=== PATIENT | female | born 1995 | race Caucasian/White ===

== ENCOUNTER → 2018-04-24 10:24 | Outpatient (CLI) | payer OTHER, SELFPAY ==
--- NOTE | 2018-04-24 10:24 | ONE_ITS ---
DATE OF VISIT: APRIL 24, 2018 ASSESSMENT: Right knee pain. EDUCATION: Slower ambulation will diminish discomfort. PLAN: 1. Work restrictions discussed. Refer to work status form. 2. Continue physical therapy. 3. Ibuprofen 800 mg. p.r.n. (42) 4. Ice or heat p.r.n. 5. Knee brace for comfort 6. Follow-up in Occupational Medicine in two weeks. Return to clinic sooner if condition worsens. More than 50% of this visit spent in the planning and coordination of care. Plan of care reviewed with the patient who verbalized understanding and agreement. CHIEF COMPLAINT: Right knee pain. EMPLOYER: [employer] SUBJECTIVE: Lois presents for follow-up of right knee pain. Work does not have duties that meet work restrictions so she has remained at home taking it easy, children are at daycare. Some improvement noted over the past two weeks. Discomfort remains 1-2/10 but is now an intermittent versus constant ache. Discomfort location remains outer aspect of her knee. Knee feels less loose- goosey. Using the pedals while driving continues to worsen her discomfort. She is walking with a limp. Full weightbearing now causes slight sharp discomfort. Is wearing a brace throughout the day to provide her comfort. Self-medicating with Ibuprofen t.i.d., 2 tabs remaining, some relief noted. Heat application with good relief. She is not noticing any clicking sensation. Sleep pattern has improved. REVIEW OF SYSTEMS: Denies chest pain, palpitations. Denies shortness of breath, dyspnea. Denies headache, visual changes. Denies GI, complaints. Snoring positive. PAST MEDICAL HISTORY: Depression. Anxiety. Obesity class 3. SOCIAL HISTORY: Tobacco one pack per day. ETOH two beers per week. Exercise none. Single, mother of 2-year-old son and 4-year-old daughter. Living with boyfriend. MEDICATIONS: Zoloft 50 mg q. daily x6 months. Ibuprofen 800 mg t.i.d. ALLERGIES: NO KNOWN DRUG ALLERGIES. OBJECTIVE: GENERAL: 22 year-old white female. Alert and oriented x 3. Conversation is appropriate. Gait remains antalgic. Presented with right knee brace in place. RIGHT KNEE: Ecchymosis below patella no longer apparent. Discomfort remains focused at lateral aspect. No erythema present. Difficult to assess edema related to body habitus. TESTING: Further testing deferred.
== END ==
PROVIDERS: PCP Specialist/Technologist Athletic Trainer; Visit Provider Nurse Practitioner Family
DX: M25.561 Pain in right knee (principal)
CPT/HCPCS: 99214

== ENCOUNTER 2018-05-15 10:41 | Outpatient (CLI) | payer OTHER, SELFPAY ==
--- NOTE | 2018-05-15 12:32 | ONE_ITS ---
DATE OF SERVICE: May 15, 2018 Lois was a no-show for today's scheduled appointment.
== END 2018-05-15 10:42 ==
PROVIDERS: PCP Specialist/Technologist Athletic Trainer; Visit Provider Nurse Practitioner Family
DX: M25.561 Pain in right knee (principal); Z53.8 Procedure and treatment not carried out for other reasons

== ENCOUNTER 2018-05-28 20:12 | Emergency (ER) | payer MEDICAID, SELFPAY ==
[2018-05-28 20:19] VITALS: BP 151/70; PULSE 98; RESP 20; TEMP 36.5; O2SAT 98
--- NOTE | 2018-05-28 20:31 | W.ED.GENAD ---
Discharge Plan Disposition Patient Disposition: HOME Condition: Stable Discharge Details Chief Complaint: Headache Clinical Impression: Migraine Primary Care Provider: Reynaldo Cabral ED Provider: Calvin Quintero Home Meds and New Rx's Prescriptions: Continue multivitamin 1 EACH tablet 1 tab PO DAILY RF: 0 sertraline [Zoloft] 25 MG tablet 25 mg PO DAILY RF: 0 Discharge Instructions Instructions: Migraine Headache (ED) Additional Instructions: you can take 1000mg tylenol and 600mg ibuprofen every 6 hours for pain as needed follow up with your primary care provider within 1-2 weeks if you have severe worsening of pain, fevers, or persistent vomit return to the emergency department Discharge Data Discharge Physician: Calvin Quintero Medical Decision Making MDM Narrative Medical decision making narrative: 23 yo female who states she has a hx of migraines and anxiety comes in [facility] complaints of 2 days of intermittent headache and nausea. She localizes the pain behind the right eye. She has no fevers or vomit. She states the pain today started this morning and slowly has been worsening throughout the day. She has no neck stiffness, eomi without pain, perrl, iop 10 in each eye. She has an [place]ogn[place] sah score of 0 so doubt sah at this time. NO findings to suggest cavernous sinus thrombosis or cerebral venous thrombosis. I suspect her headache is due to migraine, will treat with toradol and reassess. She also states she has been feeling more anxious recently and would like medicine for this, will treat with ativan and reassess pt feeling better with toradol and feels less anxious. Will have her f/u with pcp for continued management of likely migraine and also return precautions given Differential Diagnosis migraine, tension headache, cluster headache HPI - General Adult General Mode of arrival: ambulatory. Date/Time Provider Initiated Documentation: 05/28/18 20:20. Limitations to Documentation: no limitations. Information obtained by: patient. History of Present Illness 23 year old F presents to the emergency department with the chief complaint of headache, described as moderate, with intensity rated at 4. Quality is described as aching, and is localized to the head. Patient reports no radiation. Patient started experiencing this day(s) (2) and it has been intermittent. No relieving factors improve symptom(s), No exacerbating factors reported . Patient notes other (nausea). Patient did receive the following treatments prior to arrival, NSAID Related Data Home Medications Medication Instructions Recorded Confirmed multivitamin 1 tab PO DAILY 10/25/17 05/28/18 sertraline [Zoloft] 25 mg PO DAILY 10/25/17 05/28/18 Allergies Allergy/AdvReac Type Severity Reaction Status Date / Time Latex, Natural Rubber AdvReac Mild Skin Rash Unverified 05/28/18 20:26 General Stated Complaint: Headache MITCH: 3 Review of Systems Review of Systems All systems reviewed & are unremarkable except as noted in HPI and below Constitutional Denies chills, Denies fever(s) and Denies weakness Eyes Patient Denies loss of vision ENT Denies change in voice Cardiovascular Denies chest pain and Denies dyspnea Respiratory Denies dyspnea Gastrointestinal Denies abdominal pain, Denies nausea and Denies vomiting Genitourinary Denies dysuria Musculoskeletal Denies joint swelling Integumentary/Breasts Denies rash Neurologic Denies loss of vision and Denies weakness Psychiatric Denies depression Endocrine Denies cold intolerance and Denies heat intolerance Allergic/Immunologic Reports urticaria PFSH Family History Other Neoplasm Medical History Obesity (BMI 35.0-39.9 without comorbidity) (Acute) Anxiety Carpal tunnel syndrome Depression Social History current occupational status: employed current occupation: [employer] Smoking/Tobacco Use Status: Current every day quit status: considering quitting alcohol intake: current Exam Const General: no acute distress Orientation: alert HENMT Head: normal to inspection Ears: external ears normal General nose exam: external nose normal Mouth: moist mucous membranes Eyes General: appearance normal, both eyes and all related structures Neck Neck: normal visual inspection, no meningeal signs and trachea midline Resp Effort & Inspection: normal respiratory effort and able to speak in complete sentences Cardio Rate: regular rate Skin General skin exam: no rashes or lesions noted Neuro General: alert and oriented x3 Extrem General: normal to inspection Psych Mental Status: mental status grossly normal Course Vital Signs Temperature 36.5 C 05/28/18 20:19 Pulse 98 H 05/28/18 20:19 Respiratory Rate 20 05/28/18 20:19 Blood Pressure 151/70 H 05/28/18 20:19 Pulse Oximetry 98 05/28/18 20:19 Temperature 36.5 C 05/28/18 20:19 Pulse 98 H 05/28/18 20:19 Respiratory Rate 20 05/28/18 20:19 Blood Pressure 151/70 H 05/28/18 20:19 Pulse Oximetry 98 05/28/18 20:19
--- NOTE | 2018-05-28 20:34 | ED.GENADUL_ITS ---
Discharge Plan Disposition Patient Disposition: HOME Condition: Stable Discharge Details Chief Complaint: Headache Clinical Impression: Migraine Primary Care Provider: Reynaldo Cabral ED Provider: Calvin Quintero Home Meds and New Rx's Prescriptions: Continue multivitamin 1 EACH tablet 1 tab PO DAILY RF: 0 sertraline [Zoloft] 25 MG tablet 25 mg PO DAILY RF: 0 Discharge Instructions Instructions: Migraine Headache (ED) Additional Instructions: you can take 1000mg tylenol and 600mg ibuprofen every 6 hours for pain as needed follow up with your primary care provider within 1-2 weeks if you have severe worsening of pain, fevers, or persistent vomit return to the emergency department Discharge Data Discharge Physician: Calvin Quintero Medical Decision Making MDM Narrative Medical decision making narrative: 23 yo female who states she has a hx of migraines and anxiety comes in [facility] complaints of 2 days of intermittent headache and nausea. She localizes the pain behind the right eye. She has no fevers or vomit. She states the pain today started this morning and slowly has been worsening throughout the day. She has no neck stiffness, eomi without pain , perrl, iop 10 in each eye. She has an enterprise sah score of 0 so doubt sah at this time. NO findings to suggest cavernous sinus thrombosis or cerebral venous thrombosis. I suspect her headache is due to migraine, will treat with toradol and reassess. She also states she has been feeling more anxious recently and would like medicine for this, will treat with ativan and reassess pt feeling better with toradol and feels less anxious. Will have her f/u with pcp for continued management of likely migraine and also return precautions given Differential Diagnosis migraine, tension headache, cluster headache HPI - General Adult General Mode of arrival: ambulatory . Date/Time Provider Initiated Documentation: 05/28/18 20:20 . Limitations to Documentation: no limitations . Information obtained by: patient . History of Present Illness 23 year old F presents to the emergency department with the chief complaint of headache, described as moderate, with intensity rated at 4. Quality is described as aching, and is localized to the head. Patient reports no radiation. Patient started experiencing this day(s) (2) and it has been intermittent. No relieving factors improve symptom(s), No exacerbating factors reported . Patient notes other (nausea). Patient did receive the following treatments prior to arrival, NSAID Related Data Home Medications Medication Instructions Recorded Confirmed multivitamin 1 tab PO DAILY 10/25/17 05/28/18 sertraline [Zoloft] 25 mg PO DAILY 10/25/17 05/28/18 Allergies Allergy/AdvReac Type Severity Reaction Status Date / Time Latex, Natural Rubber AdvReac Mild Skin Rash Unverified 05/28/18 20:26 General Stated Complaint: Headache MITCH: 3 Review of Systems Review of Systems All systems reviewed & are unremarkable except as noted in HPI and below Constitutional Denies chills, Denies fever(s) and Denies weakness Eyes Patient Denies loss of vision ENT Denies change in voice Cardiovascular Denies chest pain and Denies dyspnea Respiratory Denies dyspnea Gastrointestinal Denies abdominal pain, Denies nausea and Denies vomiting Genitourinary Denies dysuria Musculoskeletal Denies joint swelling Integumentary/Breasts Denies rash Neurologic Denies loss of vision and Denies weakness Psychiatric Denies depression Endocrine Denies cold intolerance and Denies heat intolerance Allergic/Immunologic Reports urticaria PFSH Family History Other Neoplasm Medical History Obesity (BMI 35.0-39.9 without comorbidity) (Acute) Anxiety Carpal tunnel syndrome Depression Social History current occupational status: employed current occupation: [employer] Smoking/Tobacco Use Status: Current every day quit status: considering quitting alcohol intake: current Exam Const General: no acute distress Orientation: alert HENMT Head: normal to inspection Ears: external ears normal General nose exam: external nose normal Mouth: moist mucous membranes Eyes General: appearance normal, both eyes and all related structures Neck Neck: normal visual inspection, no meningeal signs and trachea midline Resp Effort & Inspection: normal respiratory effort and able to speak in complete sentences Cardio Rate: regular rate Skin General skin exam: no rashes or lesions noted Neuro General: alert and oriented x3 Extrem General: normal to inspection Psych Mental Status: mental status grossly normal Course Vital Signs Temperature 36.5 C 05/28/18 20:19 Pulse 98 H 05/28/18 20:19 Respiratory Rate 20 05/28/18 20:19 Blood Pressure 151/70 H 05/28/18 20:19 Pulse Oximetry 98 05/28/18 20:19 Temperature 36.5 C 05/28/18 20:19 Pulse 98 H 05/28/18 20:19 Respiratory Rate 20 05/28/18 20:19 Blood Pressure 151/70 H 05/28/18 20:19 Pulse Oximetry 98 05/28/18 20:19
[2018-05-28] MEDS: Ketorolac 30 MG/ML VIAL IM (20:40)
[2018-05-28] MEDS: LORazepam 0.5 MG TAB PO (20:40)
[2018-05-28] MEDS: SUMAtriptan 6 MG/0.5 ML VIAL SC (21:50)
[2018-05-28 22:12] VITALS: BP 130/78; PULSE 76; RESP 18; O2SAT 100
== END 2018-05-28 22:11 | disposition home or self-care (01) ==
LOC: ER 22:14
PROVIDERS: Emergency Provider Emergency Medicine; PCP Specialist/Technologist Athletic Trainer
DX: G43.909 Migraine, unspecified, not intractable, without status migrainosus (principal); F41.9 Anxiety disorder, unspecified
CPT/HCPCS: 96372; 99284; J1885

== ENCOUNTER 2018-06-05 08:18 | Emergency (ER) | payer MEDICAID, SELFPAY ==
[2018-06-05 08:22] VITALS: BP 145/77; PULSE 98; RESP 16; TEMP 36.6; O2SAT 98
--- NOTE | 2018-06-05 09:19 | W.ED.GENAD ---
Discharge Plan Disposition Patient Disposition: HOME Discharge Details Chief Complaint: Headache Clinical Impression: Headache, Blurred vision, right eye Primary Care Provider: Reynaldo Cabral ED Provider: Blane Hartley Home Meds and New Rx's Prescriptions: Continue sertraline [Zoloft] 25 MG tablet 25 mg PO DAILY RF: 0 Discharge Instructions Instructions: Against Medical Advice (ED) Additional Instructions: It was recommended that you have diagnostic testing today including an MRI of your brain to assess for severe medical conditions. This study was not performed today and should be performed as soon as possible. Please follow-up with your primary care physician as soon as possible. Call today to arrange follow-up. Please follow-up with neurology. Call for an appointment. Return to the emergency department at anytime for further workup and treatment. Referrals: Reynaldo Cabral [Primary Care Provider] - Elzbieta Savage MD [ [facility] STAFF PHYSICIAN] - Medical Decision Making 9:22 --23-year-old female with history of intermittent migraine headaches, here with persistent headache over the past 9 days. Patient is neurologically intact on exam but does note that she has some mild blurred vision of her right eye. Differential is broad at this point. Consider complex migraine headache versus less likely idiopathic intercranial hypertension versus MS initial flare. Given the timing I think it is highly unlikely that patient is suffering from subarachnoid hemorrhage. Patient has no signs concerning for meningitis. At this time is to pursue MRI imaging of her brain. 11:15 -- Patient transported to diagnostic imaging for MRI - unfortunately patient not able to tolerate study secondary to claustrophobia. I had a lengthy conversation with the patient and offered anxiolytics/sedatives to allow us to obtain study. Patient refusing. I explained my specific concern that she may have life-threatening her lifestyle modifying disease including diagnosis noted above. I explained that MRI is necessary to rule out these life-threatening or lifestyle modifying disease. Patient verbalized understanding of my concerns and is appreciative but does not wish to pursue further testing at this time.Patient wishes to leave [facility] now. I offered alternative diagnostic treatment options including obtaining CT imaging and lumbar puncture at least to assess for some of potential severe diagnosis and she refused this as well. Patient has decisional making capacity to participate in informed refusal. I will do my best to try to secure outpatient follow-up for her. Lab Data Lab results reviewed: Yes I reviewed the patient's lab results. Laboratory Tests 06/05/18 06/05/18 09:30 09:30 WBC 8.98 RBC 5.02 Hgb 15.2 Hct 45.6 MCV 90.8 MCH 30.3 MCHC 33.3 RDW 12.8 Plt Count 277 MPV 9.6 Immature Gran % 0.2 Neutrophils % 70.8 Lymphocytes % 19.4 Monocytes % 6.5 Eosinophils % 2.9 Basophils % 0.2 Absolute Neutrophils 6.36 Absolute Lymphocytes 1.74 Absolute Monocytes 0.58 Absolute Eosinophils 0.26 Absolute Basophils 0.02 Sodium 140 Potassium 3.7 Chloride 103 Carbon Dioxide 30.6 Anion Gap 6.4 BUN 12 Creatinine 0.83 Estimated GFR/1.73 m2 >= 60.00 Glucose 89 Calcium 8.9 HPI General Mode of arrival: ambulatory. Date/Time Provider Initiated Documentation: 06/05/18 09:10. Limitations to Documentation: no limitations. Information obtained by: patient. HPI Narrative: 23-year-old female with history of migraine headaches presents with chief complaint of headache. Patient notes that she has had a headache for the past 9 days. Pain is described as stabbing. Pain is localized to behind her right eye. Pain is currently rated moderate 6/10. She has associated blurred vision that is mild right eye as well as associated nausea. No vomiting. No fevers or neck pain or stiffness. No rash. Of note patient was seen here in the emergency department and treated for headache and anxiety on 05/28/2018. She was discharged home but unfortunately has continued to have symptoms. Related Data Home Medications Medication Instructions Recorded Confirmed sertraline [Zoloft] 25 mg PO DAILY 10/25/17 06/05/18 Allergies Allergy/AdvReac Type Severity Reaction Status Date / Time Latex, Natural Rubber AdvReac Mild Skin Rash Unverified 05/28/18 20:26 General Stated Complaint: Headache MITCH: 3 Review of Systems Review of Systems All systems reviewed & are unremarkable except as noted in HPI and below Constitutional Reports headache(s) Eyes Patient Reports blurry vision (rt eye) ENT Reports headache(s) Neurologic Reports headache(s) Exam Const General: cooperative and no acute distress HENMT Head: normocephalic and atraumatic Mouth: moist mucous membranes Eyes General: appearance normal, both eyes and all related structures Conjunctivae: normal conjunctivae Sclera: normal sclerae Pupils: PERRL EOM: EOM intact bilaterally Neck Neck: trachea midline and supple Resp Auscultation: clear to auscultation bilaterally, no rales, no rhonchi and no wheezes Cardio Jugular venous pressure: no JVD Rate: regular rate and not tachycardic Rhythm: regular rhythm GI Palpation: soft, not firm, no guarding, no masses, not rigid and nontender Skin General skin exam: no rashes or lesions noted Neuro General: alert, awake, oriented x3, tone normal, no focal motor deficits, CN's II-XI intact bilaterally and deep tendon reflexes 2+ bilaterally Extrem General: no edema Psych Appearance: grossly normal Mental Status: mental status grossly normal Speech and Movement: speech and movement normal Course Vital Signs Temperature 36.6 C 06/05/18 08:22 Pulse 98 H 06/05/18 08:22 Respiratory Rate 16 06/05/18 08:22 Blood Pressure 145/77 H 06/05/18 08:22 Pulse Oximetry 98 06/05/18 08:22 Temperature 36.6 C 06/05/18 08:22 Pulse 98 H 06/05/18 08:22 Respiratory Rate 16 06/05/18 08:22 Blood Pressure 145/77 H 06/05/18 08:22 Pulse Oximetry 98 06/05/18 08:22
--- NOTE | 2018-06-05 09:24 | ED.GENADUL_ITS ---
Discharge Plan Disposition Patient Disposition: HOME Discharge Details Chief Complaint: Headache Clinical Impression: Headache, Blurred vision, right eye Primary Care Provider: Reynaldo Cabral ED Provider: Blane Hartley Home Meds and New Rx's Prescriptions: Continue sertraline [Zoloft] 25 MG tablet 25 mg PO DAILY RF: 0 Discharge Instructions Instructions: Against Medical Advice (ED) Additional Instructions: It was recommended that you have diagnostic testing today including an MRI of your brain to assess for severe medical conditions. This study was not performed today and should be performed as soon as possible. Please follow-up with your primary care physician as soon as possible. Call today to arrange follow-up. Please follow-up with neurology. Call for an appointment. Return to the emergency department at anytime for further workup and treatment. Referrals: Reynaldo Cabral [Primary Care Provider] - Elzbieta Savage MD [ [facility] STAFF PHYSICIAN] - Medical Decision Making 9:22 --23-year-old female with history of intermittent migraine headaches, here with persistent headache over the past 9 days. Patient is neurologically intact on exam but does note that she has some mild blurred vision of her right eye. Differential is broad at this point. Consider complex migraine headache versus less likely idiopathic intercranial hypertension versus MS initial flare. Given the timing I think it is highly unlikely that patient is suffering from subarachnoid hemorrhage. Patient has no signs concerning for meningitis. At this time is to pursue MRI imaging of her brain. 11:15 -- Patient transported to diagnostic imaging for MRI - unfortunately patient not able to tolerate study secondary to claustrophobia. I had a lengthy conversation with the patient and offered anxiolytics/sedatives to allow us to obtain study. Patient refusing. I explained my specific concern that she may have life-threatening her lifestyle modifying disease including diagnosis noted above. I explained that MRI is necessary to rule out these life-threatening or lifestyle modifying disease. Patient verbalized understanding of my concerns and is appreciative but does not wish to pursue further testing at this time.Patient wishes to leave ama now. I offered alternative diagnostic treatment options including obtaining CT imaging and lumbar puncture at least to assess for some of potential severe diagnosis and she refused this as well. Patient has decisional making capacity to participate in informed refusal. I will do my best to try to secure outpatient follow-up for her. Lab Data Lab results reviewed: Yes I reviewed the patient's lab results. Laboratory Tests 06/05/18 06/05/18 09:30 09:30 WBC 8.98 RBC 5.02 Hgb 15.2 Hct 45.6 MCV 90.8 MCH 30.3 MCHC 33.3 RDW 12.8 Plt Count 277 MPV 9.6 Immature Gran % 0.2 Neutrophils % 70.8 Lymphocytes % 19.4 Monocytes % 6.5 Eosinophils % 2.9 Basophils % 0.2 Absolute Neutrophils 6.36 Absolute Lymphocytes 1.74 Absolute Monocytes 0.58 Absolute Eosinophils 0.26 Absolute Basophils 0.02 Sodium 140 Potassium 3.7 Chloride 103 Carbon Dioxide 30.6 Anion Gap 6.4 BUN 12 Creatinine 0.83 Estimated GFR/1.73 m2 >= 60.00 Glucose 89 Calcium 8.9 HPI General Mode of arrival: ambulatory . Date/Time Provider Initiated Documentation: 06/05/18 09:10 . Limitations to Documentation: no limitations . Information obtained by: patient . HPI Narrative: 23-year-old female with history of migraine headaches presents with chief complaint of headache. Patient notes that she has had a headache for the past 9 days. Pain is described as stabbing. Pain is localized to behind her right eye. Pain is currently rated moderate 6/10. She has associated blurred vision that is mild right eye as well as associated nausea. No vomiting. No fevers or neck pain or stiffness. No rash. Of note patient was seen here in the emergency department and treated for headache and anxiety on 05/28/2018. She was discharged home but unfortunately has continued to have symptoms. Related Data Home Medications Medication Instructions Recorded Confirmed sertraline [Zoloft] 25 mg PO DAILY 10/25/17 06/05/18 Allergies Allergy/AdvReac Type Severity Reaction Status Date / Time Latex, Natural Rubber AdvReac Mild Skin Rash Unverified 05/28/18 20:26 General Stated Complaint: Headache MITCH: 3 Review of Systems Review of Systems All systems reviewed & are unremarkable except as noted in HPI and below Constitutional Reports headache(s) Eyes Patient Reports blurry vision (rt eye) ENT Reports headache(s) Neurologic Reports headache(s) Exam Const General: cooperative and no acute distress HENMT Head: normocephalic and atraumatic Mouth: moist mucous membranes Eyes General: appearance normal, both eyes and all related structures Conjunctivae: normal conjunctivae Sclera: normal sclerae Pupils: PERRL EOM: EOM intact bilaterally Neck Neck: trachea midline and supple Resp Auscultation: clear to auscultation bilaterally, no rales, no rhonchi and no wheezes Cardio Jugular venous pressure: no JVD Rate: regular rate and not tachycardic Rhythm: regular rhythm GI Palpation: soft, not firm, no guarding, no masses, not rigid and nontender Skin General skin exam: no rashes or lesions noted Neuro General: alert, awake, oriented x3, tone normal, no focal motor deficits, CN's II-XI intact bilaterally and deep tendon reflexes 2+ bilaterally Extrem General: no edema Psych Appearance: grossly normal Mental Status: mental status grossly normal Speech and Movement: speech and movement normal Course Vital Signs Temperature 36.6 C 06/05/18 08:22 Pulse 98 H 06/05/18 08:22 Respiratory Rate 16 06/05/18 08:22 Blood Pressure 145/77 H 06/05/18 08:22 Pulse Oximetry 98 06/05/18 08:22 Temperature 36.6 C 06/05/18 08:22 Pulse 98 H 06/05/18 08:22 Respiratory Rate 16 06/05/18 08:22 Blood Pressure 145/77 H 06/05/18 08:22 Pulse Oximetry 98 06/05/18 08:22
[2018-06-05] MEDS: Lactated Ringers 1,000 ML 1000 ML IV (09:26)
[2018-06-05] MEDS: diphenhydrAMINE 50 MG/ML VIAL 25 MG IVP (09:26)
[2018-06-05] MEDS: Ketorolac 15 MG/ML VIAL IVP (09:32)
[2018-06-05] MEDS: Prochlorperazine 10 MG/2 ML VIAL IVP (09:32)
[2018-06-05 09:53] LABS: Abs Immature Grans 0.02 k/cumm (0.0-0.09); Absolute Basophil Count 0.02 k/cumm (0.0-0.2); Absolute Eosinophil Count 0.26 k/cumm (0.0-0.7); Absolute Lymphocyte Count 1.74 k/cumm (1.2-3.4); Absolute Monocyte Count 0.58 k/cumm (0.11-0.7); Absolute Neutrophil Count 6.36 k/cumm (1.2-6.7); Basophils % 0.2; Eosinophils % 2.9; HCT 45.6 % (36.0-46.0); HGB 15.2 g/dL (12.0-15.5); Immature Grans % 0.2; Lymphocytes % 19.4; Mean Corp. HGB Concentration 33.3 g/dL (32.0-36.0); Mean Corpuscular Hemoglobin 30.3 pg (27.0-33.0); Mean Corpuscular Volume 90.8 fL (80-95); Mean Platelet Volume 9.6 fL (8.0-11.0); Monocytes % 6.5; Neutrophils % 70.8; Platelet Count 277 x1000/uL (130-400); RBC 5.02 m/cumm (4.00-5.20); RBC Distribution Width 12.8 % (11.7-14.6); White Blood Cell Count 8.98 k/cumm (4.4-10.8)
[2018-06-05 09:59] LABS: Anion Gap 6.4 mmol/L (3-11); BUN 12 mg/dL (7-18); CO2 30.6 mmol/L (21.0-32.0); CREATININE 0.83 mg/dL (0.55-1.02); Calcium 8.9 mg/dL (8.5-10.1); Chloride 103 mmol/L (98-107); Glucose 89 mg/dL (70-100); Potassium 3.7 mmol/L (3.5-5.1); Sodium 140 mmol/L (136-145)
--- NOTE | 2018-06-05 12:17 | PDOC.ERCMPRO ---
Care Management Progress Note 06/05/18-Pt seen today for severe headache by Dr. Herb Hartley. Pt declined having an MRI and left AMA. CM called Pt to f/u and left a VM. [facility] as Norma is Pt's PCP.
--- NOTE | 2018-06-05 12:20 | CMPROGNOTE_ITS ---
Care Management Progress Note 06/05/18-Pt seen today for severe headache by Dr. Herb Hartley. Pt declined having an MRI and left AMA. CM called Pt to f/u and left a VM. Referral for f/u was faxed to [facility] as Norma is Pt's PCP.
== END 2018-06-05 11:32 | disposition home or self-care (01) ==
PROVIDERS: Emergency Provider Student in an Organized Health Care Education/Training Program; PCP Specialist/Technologist Athletic Trainer
DX: R51 Headache (principal); H53.8 Other visual disturbances; R11.0 Nausea; F40.240 Claustrophobia; Z53.29 Procedure and treatment not carried out because of patient's decision for other reasons
CPT/HCPCS: 36415; 80048; 81025; 96361; 96374; 96375; 99284; 85025; J0780; J1200; J1885

== ENCOUNTER 2019-03-11 20:44 | Emergency (ER) | payer MEDICAID, SELFPAY ==
[2019-03-11 20:47] VITALS: BP 128/86; PULSE 88; RESP 18; TEMP 36.1; O2SAT 98
--- NOTE | 2019-03-11 21:04 | W.ED.GENAD ---
Discharge Plan Disposition Patient Disposition: HOME Condition: Good Discharge Details Chief Complaint: EarProblem Clinical Impression: Swimmer's ear of right side Primary Care Provider: Reynaldo Cabral ED Provider: Nagi Perry Meds and New Rx's Prescriptions: New Ciprodex 0.3-0.1 % drops,suspension 4 drp OT BID Qty: 7.5 RF: 0 Continued venlafaxine [Effexor XR] 75 mg Capsule,Extended Release 24hr 75 mg PO DAILY RF: 0 Discharge Instructions Instructions: Otitis Externa (ED) Additional Instructions: Do not allow water in the right ear. Return to ED over the weekend if this seems to be getting worse instead of better with the eardrops. Use Tylenol and/or Motrin for pain. Follow-up with primary care next week if not better. Referrals: Reynaldo Cabral [Primary Care Provider] - Medical Decision Making Despite having URI this appears to be an otitis externa. Will treat with Ciprodex. Tylenol or Motrin for pain. If not better in 48 hours return for reevaluation. Its possible this is an otitis media but I think it is just the anatomy of the canal with superior erythema and swelling obscuring complete visualization of the TM. There is definitely no perforation. Patient is agreeable with plan. HPI General Mode of arrival: ambulatory. Date/Time Provider Initiated Documentation: 03/11/19 20:56. Limitations to Documentation: no limitations. Information obtained by: patient. HPI Narrative: Patient presents to ED with right ear pain for the last couple of days. She has had a URI with cough and congestion for about the last week. This does seem to be getting better. She has not had fever. She went swimming a couple of days ago and since then has had worsening right ear pain. She denies headache. She denies difficulty breathing. She does feel like the right ear is plugged with some decreased hearing. Related Data Home Medications Medication Instructions Recorded Confirmed ciprofloxacin-dexamethasone 4 drp OT BID #7.5 ml 03/11/19 [Ciprodex] venlafaxine [Effexor XR] 75 mg PO DAILY 03/11/19 03/11/19 Previous Rx's Medication Instructions Recorded ciprofloxacin-dexamethasone 4 drp OT BID #7.5 ml 03/11/19 [Ciprodex] Allergies Allergy/AdvReac Type Severity Reaction Status Date / Time Latex, Natural Rubber AdvReac Mild Skin Rash Unverified 05/28/18 20:26 General Stated Complaint: EarProblem MITCH: 4 Review of Systems Review of Systems As documented in HPI otherwise negative as below. Const: no fever, chills, weakness Resp: positive cough; no SOB, or pleuritic pain CV: no CP, diaphoresis, edema, syncope GI: no abdominal pain, nausea, vomiting, diarrhea Neuro: no headache, numbness, focal weakness, confusion PFSH Medical History Obesity (BMI 35.0-39.9 without comorbidity) (Acute) Anxiety Carpal tunnel syndrome Depression Social History Smoking/Tobacco Use Status: Current every day Tobacco Type: cigarettes Smoking cigarettes per day: 10 Quit status: considering quitting Alcohol Intake: current Alcohol Intake frequency: holidays/special occasions only Drug use: Never Substance use type: does not use 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 Const: Obese female in NAD. HEENT: NC/AT. Normal facial exam. Left ear canal and TM are normal. Right TM with slight fluid behind it but clear. Right upper canal erythematous and swollen. Some tenderness with palpation of the tragus on the right. Oropharynx normal. Eyes: Normal conjunctiva and sclera. Neck: Supple. Trachea midline. No adenopathy. Lungs: Normal respiratory effort. Lungs are clear. Cor: RRR without murmur/gallop. Good radial pulses. Neuro: A+O x 3. CN grossly in tact. Good strength and no focal deficit. Skin: Warm and dry without rash. Course Vital Signs Temperature 97.0 F L 03/11/19 20:47 Pulse 88 03/11/19 20:47 Respiratory Rate 18 03/11/19 20:47 Blood Pressure 128/86 03/11/19 20:47 Pulse Oximetry 98 03/11/19 20:47 Temperature 97.0 F L 03/11/19 20:47 Temperature Source Tympanic 03/11/19 20:47 Pulse 88 03/11/19 20:47 Respiratory Rate 18 03/11/19 20:47 Respiratory Effort Non-Labored 03/11/19 20:54 Blood Pressure 128/86 03/11/19 20:47 Blood Pressure Position Sitting 03/11/19 20:47 Pulse Oximetry 98 03/11/19 20:47 Oxygen Delivery Method Room Air 03/11/19 20:47 Oxygen Flow Rate 0 03/11/19 20:47 Pain Level 2 03/11/19 20:54
[2019-03-11 21:39] VITALS: BP 128/86; PULSE 88; RESP 18; O2SAT 98
[2019-03-11] MEDS: Ciprofloxacin/Dexameth. 7.5 ML BTL AD (21:39)
== END 2019-03-11 22:39 | disposition home or self-care (01) ==
PROVIDERS: Emergency Provider Emergency Medicine; PCP Specialist/Technologist Athletic Trainer
DX: H60.331 Swimmer's ear, right ear (principal)
CPT/HCPCS: 99283

== ENCOUNTER 2019-03-17 14:17 | Outpatient (REF) | payer MEDICAID, SELFPAY ==
[2019-03-17 14:58] LABS: Abs Immature Grans 0.01 k/cumm (0.0-0.09); Absolute Basophil Count 0.02 k/cumm (0.0-0.2); Absolute Eosinophil Count 0.29 k/cumm (0.0-0.7); Absolute Lymphocyte Count 2.05 k/cumm (1.2-3.4); Absolute Monocyte Count 0.65 k/cumm (0.11-0.7); Absolute Neutrophil Count 4.36 k/cumm (1.2-6.7); Basophils % 0.3; Eosinophils % 3.9; HCT 44.8 % (36.0-46.0); HGB 14.6 g/dL (12.0-15.5); Immature Grans % 0.1; Lymphocytes % 27.8; Mean Corp. HGB Concentration 32.6 g/dL (32.0-36.0); Mean Corpuscular Hemoglobin 30.2 pg (27.0-33.0); Mean Corpuscular Volume 92.8 fL (80-95); Mean Platelet Volume 10.3 fL (8.0-11.0); Monocytes % 8.8; Neutrophils % 59.1; Platelet Count 305 x1000/uL (130-400); RBC 4.83 m/cumm (4.00-5.20); RBC Distribution Width 12.8 % (11.7-14.6); White Blood Cell Count 7.38 k/cumm (4.4-10.8)
[2019-03-17 15:08] LABS: ALT 21 U/L (12-78); AST 10 U/L (15-37); Albumin 3.7 g/dL (3.4-5.0); Alkaline Phosphatase 90 U/L (46-116); Anion Gap 6.8 mmol/L (3-11); BUN 13 mg/dL (7-18); Bilirubin, Total 0.2 mg/dL (0.2-1.0); CO2 28.2 mmol/L (21.0-32.0); CREATININE 0.86 mg/dL (0.55-1.02); Calcium 9.1 mg/dL (8.5-10.1); Chloride 104 mmol/L (98-107); Glucose 78 mg/dL (70-100); Lipase 87 U/L (73-393); Magnesium 1.8 mg/dL (1.8-2.4); Potassium 4.4 mmol/L (3.5-5.1); Sodium 139 mmol/L (136-145); Total Protein 6.9 g/dL (6.4-8.2)
== END 2019-03-17 14:37 ==
LOC: NCHCN 14:17
PROVIDERS: PCP Specialist/Technologist Athletic Trainer; Visit Provider Nurse Practitioner Family
DX: R10.9 Unspecified abdominal pain (principal)
CPT/HCPCS: 80053; 83690; 83735; 85025; 87086

== ENCOUNTER 2019-03-19 01:46 | Outpatient (CLI) | payer MEDICAID, SELFPAY ==
--- NOTE | 2019-03-19 07:56 | DI.US_ITS ---
SYMPTOM/DIAGNOSIS: ABD PAIN, R10.9 ABDOMEN ULTRASOUND: The liver is normal in size and echogenicity There is a 1.7 cm mobile stone in the gallbladder. There is no gallbladder wall thickening, abnormal distension or pericholecystic fluid. There is no tenderness over the gallbladder. There is dilatation of the common bile duct to 8 mm distally. No common duct stones are visible. The kidneys, spleen, pancreas and aorta are unremarkable. IMPRESSION: Single mobile gallstone. There is dilatation of the common bile duct. No common duct stones are visible but cannot be excluded on this exam. There is no evidence of acute cholecystitis.
== END 2019-03-19 02:06 ==
PROVIDERS: PCP Specialist/Technologist Athletic Trainer; Visit Provider Nurse Practitioner Family
DX: R10.9 Unspecified abdominal pain (principal); K80.70 Calculus of gallbladder and bile duct without cholecystitis without obstruction; K83.8 Other specified diseases of biliary tract
CPT/HCPCS: 76700

== ENCOUNTER 2019-04-09 20:37 | Emergency (ER) | payer MEDICAID, SELFPAY ==
[2019-04-09 20:40] VITALS: BP 144/81; PULSE 80; RESP 16; TEMP 36.7; O2SAT 99
--- NOTE | 2019-04-09 20:40 | ED.GENADUL_ITS ---
Discharge Plan Disposition Patient Disposition: HOME Condition: Good Discharge Details Chief Complaint: VOLCANOLOGIST Clinical Impression: Abnormal vaginal bleeding, Pelvic cramping, Migraine headache Primary Care Provider: Reynaldo Cabral ED Provider: Nagi Perry Devine Meds and New Rx's Prescriptions: Continued venlafaxine [Effexor XR] 75 mg Capsule,Extended Release 24hr 75 mg PO DAILY RF: 0 magnesium oxide 400 mg magnesium Tablet 400 mg PO DAILY RF: 0 Discharge Instructions Additional Instructions: Go home and rest over the weekend. Stay hydrated. Use ibuprofen or acetaminophen as needed for cramping. Follow-up with [facility], call on Friday for appointment this week. Return to ED for persistent heavy bleeding, p ersistent/worsening pelvic/abdominal pain, fever, neurologic changes. Referrals: [facility] [Provider Group] Medical Decision Making Patient here with 2 complaints. In regards to the first involving vaginal bleeding and pelvic cramping this is something that should be followed by VOLCANOLOGIST. She is concerned that the IUD is causing the problem or that maybe she has an infection. She did not have urinary complaints. She is monogamous. She denies discharge, fever, persistent pain. We will do urine test and send the urine for GC and chlamydia. There is no ultrasound available tonight to evaluate the IUD. However, given lack of fever and constant pain unlikely to be a complication from the IUD such as perforation or dislodgment. She reports no heavy bleeding now. Pelvic exam deferred. Patient to be referred to [facility] this week. In regards to her migraine headache will place a line and give fluids, Reglan, Benadryl, Toradol. We can at least address this problem and give her some comfort. She is comfortable and agreeable to this plan. Headache much better at this point. She did not get the Toradol as she just took 800 of Motrin prior to coming in. She did get 500 of saline, Benadryl, Reglan with relief of headache. Will refer to [facility] for follow-up of vaginal bleeding and pelvic cramping. Return to ED for heavy vaginal bleeding, worsening/persistent pelvic/abdominal pain, fever, neurologic changes HPI General Mode of arrival: ambulatory . Date/Time Provider Initiated Documentation: 04/09/19 20:38 . Limitations to Documentation: no limitations . Information obtained by: patient and RN notes reviewed . HPI Narrative: Patient presents to ED with complaint of pelvic cramping and vaginal bleeding for a month now. She also has a migraine headache which is not different than previous headaches. She came in tonight mostly because she is just tired of all the cramping and bleeding. There has been no real change management coordinator the last month. She has heavy bleeding after intercourse but otherwise has light bleeding. She is only lightly bleeding at this time. She has pelvic cramping. She does have the Mirena device in. She has not even called VOLCANOLOGIST regarding any of this at this point. In regards to her migraine headache this is her typical headache. She has taken Motrin and Tylenol without relief. There is no neurologic changes associated with it. Related Data Home Medications Medication Instructions Recorded Confirmed venlafaxine [Effexor XR] 75 mg PO DAILY 03/11/19 04/09/19 magnesium oxide 400 mg PO DAILY 04/09/19 04/09/19 Allergies Allergy/AdvReac Type Severity Reaction Status Date / Time Latex, Natural Rubber AdvReac Mild Skin Rash Unverified 05/28/18 20:26 General MITCH: 4 Review of Systems Review of Systems As documented in HPI otherwise negative as below. 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 BP up but vitals otherwise normal. Const: WDWN female in NAD. HEENT: NC/AT. Normal facial exam. Eyes: Normal conjunctiva and sclera. PERRL and EOMI. Neck: Supple. Trachea midline. Lungs: Normal respiratory effort. Lungs are clear. Cor: RRR without murmur/gallop. Good radial pulses. GI: Soft. NT/ND. No guarding or rebound. Pelvic: deferred. Neuro: A+O x 3. CN grossly in tact. Gait, speech, strength and sensation normal. Ext: No C/C/E. No deformity or tenderness. Skin: Warm and dry without rash.
[2019-04-09] MEDS: Metoclopramide 10 MG/2 ML VIAL IVP (21:31)
[2019-04-09] MEDS: Normal Saline 1,000 ML 1000 ML IV (21:31)
[2019-04-09] MEDS: diphenhydrAMINE 50 MG/ML VIAL 25 MG IVP (21:31)
[2019-04-09 22:28] VITALS: BP 134/66; PULSE 84; RESP 16; TEMP 36.6; O2SAT 99
[2019-04-12 13:34] LABS: Chlamydia Result Negative; GC Result Negative
== END 2019-04-09 22:27 | disposition home or self-care (01) ==
PROVIDERS: Emergency Provider Emergency Medicine; PCP Specialist/Technologist Athletic Trainer
DX: R10.2 Pelvic and perineal pain (principal); N93.9 Abnormal uterine and vaginal bleeding, unspecified; G43.909 Migraine, unspecified, not intractable, without status migrainosus; Z97.5 Presence of (intrauterine) contraceptive device
CPT/HCPCS: 81025; 87491; 87591; 96374; 96375; 99284; 99283; J1200; J1885; J2765

== ENCOUNTER 2019-04-20 00:39 | Outpatient (CLI) | payer MEDICAID, SELFPAY ==
--- NOTE | 2019-04-20 13:03 | DI.US_ITS ---
SYMPTOMS/DIAGNOSIS: INTRAUTERINE DEVICE POSITION, STRINGS NOT VISIBLE, PELVIC PAIN, R10.2, Z30.431 PELVIC ULTRASOUND: Transabdominal and transvaginal exams were performed. The uterus measures 8.8 x 4.1 x 5.0 cm. An IUD is noted, which appears appropriately positioned within the endometrial stripe. No fibroids are seen. A dominant follicle is seen on the right ovary. The left ovary is unremarkable. No free fluid or hydronephrosis is seen. IMPRESSION: IUD is seen appropriately located within the endometrium.
== END 2019-04-20 00:59 ==
PROVIDERS: PCP Specialist/Technologist Athletic Trainer; Visit Provider Nurse Practitioner Women's Health
DX: R10.2 Pelvic and perineal pain (principal); Z30.431 Encounter for routine checking of intrauterine contraceptive device
CPT/HCPCS: 76830; 76856

== ENCOUNTER 2020-02-29 14:56 | Outpatient (REF) | payer MEDICAID, SELFPAY ==
[2020-02-29 20:02] LABS: Anion Gap 8.9 mmol/L (3-11); BUN 9 mg/dL (7-18); C-Reactive Protein 2.17 mg/dL (0.0-0.3); CO2 25.1 mmol/L (21.0-32.0); CREATININE 0.83 mg/dL (0.55-1.02); Calcium 8.9 mg/dL (8.5-10.1); Chloride 97 mmol/L (98-107); Glucose 97 mg/dL (74-106); Potassium 4.1 mmol/L (3.5-5.1); Sodium 131 mmol/L (136-145); Uric Acid 3.9 mg/dL (2.6-6.0)
== END 2020-02-29 15:16 ==
LOC: NCHCN 14:56
PROVIDERS: PCP Specialist/Technologist Athletic Trainer; Visit Provider Physician Assistant Medical
DX: M10.9 Gout, unspecified (principal)
CPT/HCPCS: 80048; 84550; 85025; 86140

== ENCOUNTER 2020-04-03 18:12 | Outpatient (REF) | payer MEDICAID, SELFPAY ==
[2020-04-03 19:38] LABS: HCT 43.2 % (36.0-46.0); HGB 14.4 g/dL (12.0-15.5); Mean Corp. HGB Concentration 33.3 g/dL (32.0-36.0); Mean Platelet Volume 10.1 fL (8.0-11.0); Platelet Count 351 x1000/uL (130-400); RBC Distribution Width 13.3 % (11.7-14.6); White Blood Cell Count 7.12 k/cumm (4.4-10.8)
[2020-04-03 20:33] LABS: ALT 63 U/L (14-59); AST 39 U/L (15-37); Albumin 3.7 g/dL (3.4-5.0); Alkaline Phosphatase 97 U/L (46-116); Anion Gap 5.1 mmol/L (3-11); BUN 8 mg/dL (7-18); Bilirubin, Total 0.5 mg/dL (0.2-1.0); CO2 28.9 mmol/L (21.0-32.0); CREATININE 0.77 mg/dL (0.55-1.02); Chloride 102 mmol/L (98-107); Glucose 94 mg/dL (74-106); Potassium 4.3 mmol/L (3.5-5.1); Sodium 136 mmol/L (136-145); TSH (W/Ref FT4) 1.06 uIU/mL (0.36-3.74); Total Protein 6.7 g/dL (6.4-8.2); Vitamin B12 325 pg/mL (193-986)
[2020-04-03 20:36] LABS: Vitamin D 25 Total 26.4 ng/ml (30-100)
== END 2020-04-03 18:32 ==
LOC: NCHCN 18:12
PROVIDERS: PCP Specialist/Technologist Athletic Trainer; Visit Provider Nurse Practitioner Family
DX: R63.5 Abnormal weight gain (principal); R53.83 Other fatigue; D64.9 Anemia, unspecified
CPT/HCPCS: 80053; 82306; 85027; 82607; 84443

== ENCOUNTER 2021-10-27 20:29 | Emergency (ER) | payer MEDICAID, SELFPAY ==
[2021-10-27] VITALS (36 sets, daily range): BP systolic 74–153; BP diastolic 54–94; PULSE 69–101; RESP 10–27; TEMP 37.1; O2SAT 95–100
--- NOTE | 2021-10-27 20:15 | DI.RAD_ITS ---
Exam(s) XR ANKLE LT COMPLETE EXAM: XR ANKLE LT COMPLETE CLINICAL HISTORY: L deformitty, pain TECHNIQUE: 2D digital imaging was performed of the left ankle. Three images were obtained. AP, lat eral and oblique views were obtained. COMPARISON: No exams were available for comparison FINDINGS: BONES: There is an acute fracture in the distal shaft of the left fibula. The fracture occurs on the 6 cm above the ankle mortise. There is 4 mm of lateral displacement of the distal fracture. There is a laterally displaced fracture through the medial malleolus. No bony destructive lesion is seen. JOINTS:There is medial subluxation of the talus relative to the tibia. SOFT TISSUE: The patient's ankle is in a splint. IMPRESSION: Acute fractures of the medial malleolus and distal fibula with disruption of the ankle mortise. DATA REPOSITORY: RADIATION DOSE DELIVERED:
--- NOTE | 2021-10-27 20:27 | W.ED.GENAD ---
Discharge Plan Disposition Patient Disposition: HOME Condition: Improving Discharge Details Clinical Impression: Bimalleolar fracture of left ankle Primary Care Provider: Reynaldo Cabral ED Provider: Saurav Rosenberg Home Meds and New Rx's Prescriptions: New oxycodone 5 mg capsule 5 mg PO Q6H PRN (Reason: pain) Qty: 14 0RF Continued venlafaxine [Effexor XR] 150 mg capsule,extended release 24hr 150 mg PO DAILY 0RF Mirena 20 mcg/24 hours (5 yrs) 52 mg intrauterine device 1 device IY ONCE 0RF Rx Instructions: as a single dose Discharge Instructions Instructions: Leg Fracture (ED) Additional Instructions: Elevate the leg above the level of the heart to reduce pain and swelling. You may apply ice over top of the splint as well. Return if you develop increasing pain, cold blue/numbness or swelling of the toes, or any other acute concerns. Please follow-up with [facility], the office number is [phone] and you should call for an appointment time. As we discussed, you may also follow-up with Dr. Suazo. His office number [phone]. As Dr. Suazo discussed, the office may call you tomorrow with further information. Tylenol as needed for pain with oxycodone if needed for severe or breakthrough pain. You are to be nonweightbearing with the use of crutches. Medical Decision Making This is an otherwise healthy 26-year-old female who presents with left ankle deformity and pain. She slipped on icy stairs wearing tennis shoes, deformed her left ankle and required EMS transport with a splint. She was not injured in any other way and denies loss of consciousness. She has no head/neck/chest/abdomen pain. IV access established and the patient given parenteral analgesia. She presented with obvious fracture/dislocation and external rotation of the foot with tenting of the skin. Palpable DP was present and distal motor sensory function was intact. Patient's knee was flexed and the joint reduced with splint applied in posterior and stirrup fashion. No change to vascular/motor/sensory. X-ray with bimalleolar fracture with derangement of the mortise. Patient was consented for procedural sedation and closed reduction attempted. Distraction of the medial malleolus reduced slightly. Case discussed with Dr. Suazo, on-call for orthopedic surgery. He presents to the bedside for consultation on the patient. Hematoma block was performed. Patient was casted with C arm at the bedside, single bivalve to the cast was placed. Patient will follow up in orthopedic clinic. HPI General Mode of arrival: EMS. Date/Time Provider Initiated Documentation: 10/27/21 20:51. Limitations to Documentation: no limitations. Information obtained by: patient and EMS. History of Present Illness 26 year old F presents to the emergency department with the chief complaint of Left ankle pain and deformity, described as moderate and similar to prior episodes, Quality is described as dull and constant, and is localized to the left and lower extremity. Patient reports no radiation. Patient started experiencing this minute(s) and it has been constant. improves with Immobilization improves symptom(s), Movement worsens symptoms . Patient notes no other symptoms.; denies syncope. Patient did receive the following treatments prior to arrival, other (Fentanyl) Related Data Home Medications Medication Instructions Recorded Confirmed levonorgestrel 20 mcg/24 hours (7 1 device IY ONCE 05/10/20 10/27/21 yrs) 52 mg intrauterine device (Mirena) venlafaxine 150 mg 150 mg PO DAILY 05/10/20 10/27/21 capsule,extended release 24 hr (Effexor XR) oxycodone 5 mg capsule 5 mg PO Q6H PRN #14 cap 10/28/21 Previous Rx's Medication Instructions Recorded oxycodone 5 mg capsule 5 mg PO Q6H PRN #14 cap 10/28/21 Allergies Allergy/AdvReac Type Severity Reaction Status Date / Time Latex, Natural Rubber AdvReac Mild Skin Rash Unverified 10/27/21 21:01 General MITCH: 3 Review of Systems Narrative: 6 systems reviewed and otherwise negative PFSH All Active Problems Bimalleolar fracture of left ankle (Acute) Bilateral carpal tunnel syndrome (Acute) Medical History Anxiety Anxiety with depression Carpal tunnel syndrome Depression Gout Numbness and tingling Obesity (BMI 35.0-39.9 without comorbidity) Poor circulation Surgical History History of cholecystectomy Family History Father High blood cholesterol Mother Arthritis Osteoarthritis Paternal Grandfather Arthritis Osteoarthritis High blood cholesterol Hypertension Diabetes Abnormally prolonged clotting time Maternal Grandmother Arthritis Osteoarthritis High blood cholesterol Hypertension Rheumatoid arthritis Other Neoplasm Social History Smoking/Tobacco Use Status: Current every day Tobacco Type: cigarettes Quit status: considering quitting Smoking risk assessment performed?: Yes Alcohol Intake: never Drug use: Never Substance use type: does not use Household members: significant other and children Housing: apartment Number of Children: 2 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 Pleasant, well groomed, interactive. HEAD: Normocephalic, atraumatic ENT: Mucous membranes moist, oropharynx unremarkable, External ear exam unremarkable EYES: PERRL, EOMI NECK: Full ROM, no SAM, no menigismus CHEST/RESP: Nontender, clear to auscultation bilateral, no wheeze/rhonchi/rales CARDIOVASCULAR: RRR, no murmur, rub marino. 2+ Rad pulse bilateral ABDOMEN: Soft, nontender, no mass. +Bowel sounds EXT: Left ankle is laterally rotated and deviated with obvious bony deformity and slight tenting of the skin. 1+ DP and sensation is intact, distal motor intact Neuro: Grossly normal neurologic exam, conversant, interactive. Psych: Speech fluent, thoughts congruent, affect normal Procedures Orthopedic Joint Reduction Joint #1: Time Out Performed: Yes Side: left Joint Reduction Location: ankle Analgesia: other (Parenteral hydromorphone) Post-reduction neuro exam: intact Post-reduction vascular: intact Splint Applied: Yes Patient Tolerated Procedure: well Orthopedic Splinting/Casting Injury #1: Side: left Lower Extremity Injury Location: lower leg and ankle Lower Extremity Immobilizer: posterior splint and stirrup splint
[2021-10-27] MEDS: HYDROmorphone 2 MG/ML VIAL 1 MG IVP (20:40)
[2021-10-27] MEDS: HYDROmorphone 2 MG/ML VIAL 0.5 MG IVP (20:44)
[2021-10-27] MEDS: ACETAMINOPHEN 1,000 MG/100 ML BTL 400 MG IVPB (21:29)
--- NOTE | 2021-10-27 21:32 | DI.VRAD_ITS ---
PROCEDURE INFORMATION: Exam: XR Left Ankle Exam date and time: 10/27/2021 20:27 Age: 26 years old Clinical indication: Pain and injury or trauma; Fall; Blunt trauma; Ankle; Left; Patient HX: L deformity, pain TECHNIQUE: Imaging protocol: XR Left ankle. Views: 3 or more views. COMPARISON: No relevant prior studies available. FINDINGS: Bones/joints: Overlying splint obscures the bony detail. Acute fracture of the medial malleolus with distraction by 13 mm and mild lateral translation of the talar dome relative to the tibia. No AP dislocation. Acute oblique fracture of the distal fibular diaphysis with a mild distal lateral greater than posterior angulation. No definite fracture of the posterior malleolus, attention on follow-up imaging. Soft tissues: Generalized soft tissue swelling. IMPRESSION: Acute fractures of the distal tibia and fibula with disruption of the ankle mortise as described. Dictated and Authenticated by: Melanie Rey MD. Ordering:LYDIA Mg MD
[2021-10-27] MEDS: Nicotine 21 MG/24 HR PATCH (22:50)
[2021-10-27] MEDS: Propofol 200 MG/20 ML VIAL ×3 (22:50→23:05)
--- NOTE | 2021-10-27 23:00 | DI.RAD_ITS ---
Exam(s) XR ANKLE LT COMPLETE EXAM: XR ANKLE LT COMPLETE CLINICAL HISTORY: s/p reduction TECHNIQUE: 2D digital imaging was performed of the left ankle. Three images were obtained. AP, lat eral and oblique views were obtained. COMPARISON: CR,XR XR ANKLE LT COMPLETE from 10/27/2021 FINDINGS: BONES: There again seen fractures involving the distal fibula and medial malleolus. There is persist ent lateral subluxation of the talus relative to the tibia. There does not appear to be any signific ant change in alignment of the ankle compared to the prior examination from earlier in the day given the slight changes in obliquity. No bony destructive lesion is seen. JOINTS:Please see above. SOFT TISSUE: The patient's ankle is in a cast. IMPRESSION: Stable left ankle fracture dislocation. DATA REPOSITORY: RADIATION DOSE DELIVERED:
--- NOTE | 2021-10-27 23:00 | DI.RAD_ITS ---
Exam(s) XR KNEE LT 3V AP,LAT,ROCIO EXAM: XR KNEE LT 3V AP,LAT,ROCIO CLINICAL HISTORY: fall, pain. TECHNIQUE: 2D digital imaging was performed of the left knee. Three images were obtained. AP, late ral, Merchant and PA tunnel views were obtained. COMPARISON: No exams were available for comparison FINDINGS: BONES: No acute fracture is present. No bony destructive lesion is seen. JOINTS: The knee is normally aligned. No joint effusion is seen. SOFT TISSUE: Normal. IMPRESSION: Normal radiographs of the left knee. DATA REPOSITORY: RADIATION DOSE DELIVERED:
--- NOTE | 2021-10-27 23:14 | RESPIRATORY ---
pt had no issues during sedation
--- NOTE | 2021-10-27 23:45 | DI.RAD_ITS ---
Exam(s) XR FLOURO OR C-ARM <1 HR EXAM: XR FLOURO OR C-ARM <1 HR CLINICAL HISTORY: ankle pain, fracture TECHNIQUE: 2D and realtime digital imaging was performed. CONTRAST MATERIAL: Refer to procedure report. COMPARISON: CR,XR XR ANKLE LT COMPLETE from 10/27/2021 FINDINGS: Fluoroscopy was provided during the performance of a left ankle fracture reduction. Please refer to the procedure report for complete details. Ka,r=0.3141 mGy IMPRESSION: RADIATION DOSE DELIVERED:
--- NOTE | 2021-10-27 23:46 | DI.VRAD_ITS ---
PROCEDURE INFORMATION: Exam: XR Left Ankle Exam date and time: 10/27/2021 23:11 Age: 26 years old Clinical indication: Screening exam; Post reduction with cast; Patient HX: S/P fall TECHNIQUE: Imaging protocol: XR Left ankle. Views: 3 or more views. COMPARISON: CR XR ANKLE LT COMPLETE 10/27/2021 20:53 FINDINGS: Bones/joints: Slight improvement in alignment of the ankle. Distraction of the medial malleolus has reduced slightly. Lateral translation of the talar dome also reduced slightly remaining mild. Angulation of the distal fibular fracture is similar. Overlying splint obscures the bony detail. Soft tissues: Generalized soft tissue swelling. IMPRESSION: Slight improvement in alignment of the ankle as above. Dictated and Authenticated by: Melanie Rey MD. Ordering:LYDIA Mg MD
--- NOTE | 2021-10-27 23:47 | DI.VRAD_ITS ---
PROCEDURE INFORMATION: Exam: XR Left Knee Exam date and time: 10/27/2021 23:11 Age: 26 years old Clinical indication: Knee; Left; Patient HX: Fall, pain TECHNIQUE: Imaging protocol: XR Left knee. Views: 3 views. COMPARISON: CR XR ANKLE LT COMPLETE 10/27/2021 20:53 FINDINGS: Bones/joints: No acute fracture or subluxation. Soft tissues: No definite joint fluid on a slightly rotated lateral view. IMPRESSION: No acute bony pathology. Dictated and Authenticated by: Melanie Rey MD. Ordering:LYDIA Mg MD
[2021-10-27] MEDS: Bupivacaine 0.5% Pres-Free 30 ML VIAL (23:50)
[2021-10-28] VITALS (10 sets, daily range): BP systolic 117–146; BP diastolic 73–94; PULSE 79–98; RESP 15–26; O2SAT 93–99
[2021-10-28] MEDS: HYDROmorphone 2 MG/ML VIAL 1 MG IVP (00:05)
--- NOTE | 2021-10-28 00:15 | DI.RAD_ITS ---
Exam(s) XR ANKLE LT COMPLETE EXAM: XR ANKLE LT COMPLETE CLINICAL HISTORY: s/p reduction TECHNIQUE: 2D digital imaging was performed of the left ankle. Three images were obtained. AP, lat eral and oblique views were obtained. COMPARISON: CR,XR XR ANKLE LT COMPLETE from 10/27/2021 FINDINGS: BONES: The distal fibular fracture appears stable in alignment as does the medial malleolar fracture. There has been improvement in the alignment of the tibial talar dislocation. There is mild persist ent lateral subluxation of the talus relative to the tibia. No bony destructive lesion is seen. JOINTS:Please see above. SOFT TISSUE: The patient's ankle is in a cast. IMPRESSION: Improved alignment of the left ankle fracture dislocation as described above. DATA REPOSITORY: RADIATION DOSE DELIVERED:
--- NOTE | 2021-10-28 00:35 | OCONE_ITS ---
Date of service: 10/27/21 History of Present Illness History of Present Illness Chief Complaint: Left ankle pain Narrative: 26F was walking down stairs earlier today when she slipped and twisted her left ankle. Came to [facility]. Found to have bimalleolar ankle fracture dislocation. Reduction attempted x2 first with dilaudid then with propofol but ankle remained unstable. Ortho consulted for aid in mgmt. Patient denies numbness/tingling. History of ankle sprains. No prior ankle surgery. Hx of cholecystectomy and carpal tunnel syndrome. Consult Reason left ankle fracture dislocation Assessment and Plan Assessment and plan (1) Bimalleolar fracture of left ankle: Status: Acute Assessment and plan: 26F with left unstable ankle fracture dislocation. Will plan for operative intervention in 7-14 days pending improvement in swelling. cast univalved due to instability of the ankle. discussed with patient to return to the ED [facility] if pain not well controlled or getting worse with concern for excessive swelling. ice, strict elevation. f/u at [facility] or with [address] [place] [address] orthopedics for operative planning. PFSH All Active Problems Bimalleolar fracture of left ankle (Acute) Bilateral carpal tunnel syndrome (Acute) Medical History Anxiety Anxiety with depression Carpal tunnel syndrome Depression Gout Numbness and tingling Obesity (BMI 35.0-39.9 without comorbidity) Poor circulation Surgical History History of cholecystectomy Family History Father High blood cholesterol Mother Arthritis Osteoarthritis Paternal Grandfather Arthritis Osteoarthritis High blood cholesterol Hypertension Diabetes Abnormally prolonged clotting time Maternal Grandmother Arthritis Osteoarthritis High blood cholesterol Hypertension Rheumatoid arthritis Other Neoplasm Social History Smoking/Tobacco Use Status: Current every day Tobacco Type: cigarettes Quit status: considering quitting Smoking risk assessment performed?: Yes Alcohol Intake: never Drug use: Never Substance use type: does not use Household members: significant other and children Housing: apartment Number of Children: 2 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 NAD LLE: SILT toes No open wounds. 2+ dp pulse BCR toes EHL/FHL/APF/ADF intact ANkle grossly malaligned. knee with mild tenderness throughout. Results Last Vital Signs Temp 37.1 C 10/27/21 20:19 Pulse 79 10/27/21 21:01 Resp 18 10/27/21 21:02 BP 122/68 10/27/21 21:01 Pulse Ox 97 10/27/21 21:02 Imaging Imaging Studies: xrays show knee wihtout acute fracture. ankle with lateral dislocation of the tibiotalar joint, medial malleolus fracture, page c fibula fracture. Procedures Orthopedic Fracture Reduction Fracture #1: Time out performed: Yes Side: left Fracture reduction location: other (ankle) Analgesia: hematoma block Additional comments: patient given hematoma block wiht 10 cc 1%lidocaine mixed 1:1 with 0.25% bupivacaine. Reduction performed, short leg cast applied due to body habitus. Cast was univalved laterally. C-arm showed good reduction. Patient tolerated procedure well.
--- NOTE | 2021-10-28 00:47 | DI.VRAD_ITS ---
PROCEDURE INFORMATION: Exam: XR Left Ankle Exam date and time: 10/28/2021 00:30 Age: 26 years old Clinical indication: Injury or trauma; Fall; Blunt trauma; Ankle; Left; Patient HX: S/P reduction with cast TECHNIQUE: Imaging protocol: XR Left ankle. Views: 3 or more views. COMPARISON: CR XR ANKLE LT COMPLETE 10/27/2021 23:41 FINDINGS: Bones/joints: Continued slight improvement in alignment of the ankle fracture with improved alignment of the ankle mortise. Tibiotalar alignment is improved with a minimal lateral translation of the talus relative to the tibia. Distraction of the medial malleolar fragment by about 7 mm appears similar. Alignment of the distal fibular fracture is similar. Overlying splint obscures the bony detail. Soft tissues: Generalized soft tissue swelling. IMPRESSION: Continued slight improvement in alignment of the ankle as described. Dictated and Authenticated by: Melanie Rey MD. Ordering:LYDIA Mg MD
== END 2021-10-28 01:18 | disposition home or self-care (01) ==
PROVIDERS: Emergency Provider Emergency Medicine; PCP Specialist/Technologist Athletic Trainer
DX: S82.842A Displaced bimalleolar fracture of left lower leg, initial encounter for closed fracture (principal); W00.1XXA Fall from stairs and steps due to ice and snow, initial encounter; M25.562 Pain in left knee
CPT/HCPCS: 73562; 76000; 82805; 73610; J0131; J2704

== ENCOUNTER 2021-10-28 09:46 | Emergency (ER) | payer MEDICAID, SELFPAY ==
[2021-10-28 09:52] VITALS: BP 153/76; PULSE 106; TEMP 36.4; O2SAT 98
--- NOTE | 2021-10-28 11:16 | W.ED.GENAD ---
Discharge Plan Disposition Patient Disposition: HOME Condition: Improving Discharge Details Clinical Impression: Bimalleolar fracture of left ankle Primary Care Provider: Reynaldo Cabral ED Provider: Francisco Ford Home Meds and New Rx's Prescriptions: Continued venlafaxine [Effexor XR] 150 mg capsule,extended release 24hr 150 mg PO DAILY 0RF Mirena 20 mcg/24 hours (5 yrs) 52 mg intrauterine device 1 device IY ONCE 0RF Rx Instructions: as a single dose No Action hydromorphone [Dilaudid] 2 mg tablet 2 mg PO Q4H PRNQty: 28 0RF Rx Instructions: stop previous prescribed oxycodone acetaminophen 500 mg capsule 1,000 mg PO Q8H PRN PRNQty: 30 0RF aspirin 81 mg tablet,delayed release (DR/EC) 81 mg PO BID Qty: 60 0RF ibuprofen 600 mg tablet 600 mg PO TID Qty: 30 0RF Discharge Instructions Instructions: Leg Fracture (ED) Additional Instructions: Please keep leg elevated and on top of the oxycodone you have already been prescribed you may take [id number] pain medication as directed on packaging. Please return for any of the symptoms discussed for signs of compartment syndrome and ensure that you follow-up with orthopedist as directed. Discharge Data Discharge Date/Time-TO BE ENTERED AT DEPARTURE: 10/28/21 11:31 Medical Decision Making Patient presenting to the emergency department for worsening pain and [id number] feeling along with swelling to left lower extremity secondary to ankle fracture and splinting that occurred last night in the ER. Patient denies any other reinjury or trauma and states that symptoms worsened when she was going to the bathroom with leg in a dependent position. Physical exam shows cap refill of less than 3 seconds, full movement and sensation to the toes and dorsal foot as far as I can feel with fingers and reflex hammer under the cast. Patient also has soft pliable calf and I cannot appreciate much swelling to anterior tibia. I also used the backside of a reflex hammer to insert it underneath the cast and again was soft compressible and did not cause significant wound pain or discomfort for patient. Contacted orthopedist on-call Dr. West to discuss case. At this time I doubt compartment syndrome, after discussion with orthopedist he agrees that there is low suspicion for compartment syndrome but states possible additional pressure due to tightness of splinting. Recommended bi-valving the cast to relieve extra pressure and keeping cast in place with silk tape. This was performed and patient did state reduction of pressure when this occurred. Discussed with patient that dependent positioning will worsen symptoms and thoroughly discussed emergent return for more thoroughly discussed symptoms of compartment syndrome. After discussion of diagnosis and plan of care patient has no further needs, questions, or concerns and states clear understanding to return to the emergency department for any worsening symptoms. HPI General Mode of arrival: wheelchair. Date/Time Provider Initiated Documentation: 10/28/21 09:47. Limitations to Documentation: no limitations. Information obtained by: patient and old records reviewed. History of Present Illness 26 year old F presents to the emergency department with the chief complaint of Ankle pain with some numbness tingling and swelling, described as moderate and similar to prior episodes, with intensity rated at 6. Quality is described as aching, and is localized to the left and lower extremity. Patient reports no radiation. Patient started experiencing this hour(s) (3) and it has been constant. improves with No relieving factors improve symptom(s), Other factors that worsen symptoms (dependant position) . Patient notes no other symptoms.. Patient did receive the following treatments prior to arrival, other (RX pain meds) Related Data Home Medications Medication Instructions Recorded Confirmed levonorgestrel 20 mcg/24 hours (7 1 device IY ONCE 05/10/20 10/30/21 yrs) 52 mg intrauterine device (Mirena) venlafaxine 150 mg 150 mg PO DAILY 05/10/20 10/30/21 capsule,extended release 24 hr (Effexor XR) hydromorphone 2 mg tablet 2 mg PO Q4H PRN #28 tab 10/29/21 10/30/21 (Dilaudid) acetaminophen 500 mg capsule 1,000 mg PO Q8H PRN PRN #30 cap 10/31/21 aspirin 81 mg tablet,delayed 81 mg PO BID #60 tab 10/31/21 release ibuprofen 600 mg tablet 600 mg PO TID #30 tab 10/31/21 Previous Rx's Medication Instructions Recorded hydromorphone 2 mg tablet 2 mg PO Q4H PRN #28 tab 10/29/21 (Dilaudid) acetaminophen 500 mg capsule 1,000 mg PO Q8H PRN PRN #30 cap 10/31/21 aspirin 81 mg tablet,delayed 81 mg PO BID #60 tab 10/31/21 release ibuprofen 600 mg tablet 600 mg PO TID #30 tab 10/31/21 Allergies Allergy/AdvReac Type Severity Reaction Status Date / Time Latex, Natural Rubber AdvReac Mild Skin Rash Unverified 10/30/21 12:50 General Stated Complaint: Orthopedic MITCH: 3 Review of Systems Constitutional Constitutional: Denies chills and Denies fever(s) Cardiovascular Cardiovascular: Denies chest pain and Denies dyspnea Respiratory Respiratory: Denies dyspnea Gastrointestinal Gastrointestinal: Denies nausea and Denies vomiting Musculoskeletal Musculoskeletal: Reports as per HPI, Reports joint swelling, Denies numbness and Reports tingling Neurologic Neurologic: Denies numbness, Denies sensory deficit and Reports tingling PFSH All Active Problems (Updated 10/30/21 @ 12:48 by Isaias Gallardo) Bilateral carpal tunnel syndrome (Acute) Bimalleolar fracture of left ankle (Acute) Medical History (Updated 10/30/21 @ 12:48 by Isaias Gallardo) Anxiety Anxiety with depression Carpal tunnel syndrome Depression Fibromyalgia Gout Numbness and tingling Obesity (BMI 35.0-39.9 without comorbidity) Poor circulation TMJ (temporomandibular joint disorder) Surgical History History of cholecystectomy Family History Father High blood cholesterol Mother Arthritis Osteoarthritis Paternal Grandfather Arthritis Osteoarthritis High blood cholesterol Hypertension Diabetes Abnormally prolonged clotting time Maternal Grandmother Arthritis Osteoarthritis High blood cholesterol Hypertension Rheumatoid arthritis Other Neoplasm Social History Smoking/Tobacco Use Status: Current every day Tobacco Type: cigarettes Quit status: considering quitting Smoking risk assessment performed?: Yes Alcohol Intake: never Drug use: Never Substance use type: does not use Household members: significant other and children Housing: apartment Number of Children: 2 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 Pets and animals: Yes Pets and animals: cat(s) and dog(s) Seatbelt use: always Do you feel safe at home: Yes Do you feel safe in your relationship?: Yes Female Reproductive History Menstrual control method: progestin IUCD History History 2 Para 2 Hx # Term Pregnancies Multiple births Hx # Pregnancies Ectopic pregnancies AB induced Hx Number of Living Children AB spontaneous Exam Const General: cooperative and no acute distress Orientation: alert, awake and oriented x3 Resp Effort & Inspection: normal respiratory effort and able to speak in complete sentences Cardio Rate: regular rate Rhythm: regular rhythm Extrem General: normal exam except as noted Left lower extremity: normal capillary refill and lower leg (Cast in place with supple soft calf and dorsal foot. Cap refill less than 3) Details: other (Toes with normal color cyanotic or cold to touch.) Course Vital Signs Vital signs: Vital Signs Temperature 36.4 C L 10/28/21 09:52 Pulse 106 H 10/28/21 09:52 Blood Pressure 153/76 H 10/28/21 09:52 Pulse Oximetry 98 10/28/21 09:52 Temperature 36.4 C L 10/28/21 09:52 Temperature Source Temporal Artery Scan 10/28/21 09:52 Pulse 106 H 10/28/21 09:52 Respiratory Effort Non-Labored 10/28/21 09:57 Blood Pressure 153/76 H 10/28/21 09:52 Blood Pressure Position Sitting 10/28/21 09:52 Pulse Oximetry 98 10/28/21 09:52 Oxygen Delivery Method Room Air 10/28/21 09:52 Oxygen Flow Rate 0 10/28/21 09:52 Pain Level 6 10/28/21 09:58
[2021-10-28 11:39] VITALS: BP 140/70; PULSE 76; RESP 18; TEMP 36.6; O2SAT 98
== END 2021-10-28 11:31 | disposition home or self-care (01) ==
PROVIDERS: Emergency Provider Nurse Practitioner Family; PCP Specialist/Technologist Athletic Trainer
DX: R20.0 Anesthesia of skin (principal); S82.842A Displaced bimalleolar fracture of left lower leg, initial encounter for closed fracture; X58.XXXA Exposure to other specified factors, initial encounter
CPT/HCPCS: 99281; 99282

== ENCOUNTER 2021-10-29 02:19 | Emergency (ER) | payer MEDICAID, SELFPAY ==
--- NOTE | 2021-10-29 02:15 | DI.RAD_ITS ---
Exam(s) XR ANKLE LT COMPLETE EXAM: XR ANKLE LT COMPLETE CLINICAL HISTORY: increasing pain after 'movement'. TECHNIQUE: 2D digital imaging was performed. COMPARISON: X-rays 10/28/2021 FINDINGS: AP and lateral in cast views reveal distracted medial malleolus fracture as well as oblique fracture in the distal 3rd of the fibula. There is some distraction of both fracture sites as well as widenin g of the mortise. Talar dome appears otherwise unremarkable. IMPRESSION: DATA REPOSITORY: RADIATION DOSE DELIVERED:
[2021-10-29 02:24] VITALS: BP 144/86; PULSE 100; RESP 18; TEMP 36.6; O2SAT 96
--- NOTE | 2021-10-29 02:34 | ED.GENADUL_ITS ---
Discharge Plan Disposition Patient Disposition: HOME Condition: Improving Discharge Details Clinical Impression: Bimalleolar fracture of left ankle Primary Care Provider: Reynaldo Cabral ED Provider: Saurav Rosenberg Home Meds and New Rx's Prescriptions: New hydromorphone [Dilaudid] 2 mg tablet 2 mg PO Q4H PRNQty: 28 0RF Rx Instructions: stop previous prescribed oxycodone Continued venlafaxine [Effexor XR] 150 mg capsule,extended release 24hr 150 mg PO DAILY 0RF Mirena 20 mcg/24 hours (5 yrs) 52 mg intrauterine device 1 device IY ONCE 0RF Rx Instructions: as a single dose Discontinued oxycodone 5 mg capsule 5 mg PO Q6H PRN (Reason: pain) Qty: 14 0RF No Action acetaminophen 500 mg capsule 1,000 mg PO Q8H PRN PRNQty: 30 0RF aspirin 81 mg tablet,delayed release (DR/EC) 81 mg PO BID Qty: 60 0RF ibuprofen 600 mg tablet 600 mg PO TID Qty: 30 0RF Discharge Instructions Instructions: Leg Fracture (ED) Additional Instructions: Continue to elevate the leg above the level of the heart to reduce swelling and pain. May use Tylenol 650 to 975 mg every 6 hours. May use ibuprofen 600 to 800 mg every 8 hours. Please stop the previously prescribed oxycodone. You may use the prescribed Dilaudid as needed for severe or breakthrough pain. Discharge Data Discharge Date/Time-TO BE ENTERED AT DEPARTURE: 10/29/21 08:11 Medical Decision Making <Saurav Rosenberg MD - Last Filed: 10/29/21 07:24> This is a 26-year-old female known to me from her left bimalleolar ankle fracture that was reduced and splinted yesterday. She had returned earlier in the day where univalve of the cast was advanced bivalved. She has been taking oxycodone for pain. Now reports increasing pain and feeling as if the bones have shifted. IV access established patient given parenteral analgesia. Referred for x-ray to ensure no significant change in fracture alignment. Patient's pain improved with parenteral medications. She was able to rest. We will increase her analgesia to hydromorphone and have her stop the oxycodone. She is stable and appropriate to discharge home at this time. Patient was seen in brief bedside visit by Dr. Montano prior to discharge. HPI <Saurav Rosenberg MD - Last Filed: 10/29/21 07:24> General Mode of arrival: wheelchair . Date/Time Provider Initiated Documentation: 10/29/21 02:23 . Limitations to Documentation: no limitations . Information obtained by: patient . History of Present Illness 26 year old F presents to the emergency department with the chief complaint of Left foot and ankle pain, described as moderate, severe and similar to prior episodes, Quality is described as dull and constant, and is localized to the left and lower extremity. Patient reports no radiation. Patient started experiencing this hour(s) and it has been constant. improves with No relieving factors improve symptom(s), Movement worsens symptoms . Patient notes no other symptoms.. Patient did receive the following treatments prior to arrival, other (Oxycodone) Related Data Home Medications Medication Instructions Recorded Confirmed levonorgestrel 20 mcg/24 hours (7 1 device IY ONCE 05/10/20 10/30/21 yrs) 52 mg intrauterine device (Mirena) venlafaxine 150 mg 150 mg PO DAILY 05/10/20 10/31/21 capsule,extended release 24 hr (Effexor XR) hydromorphone 2 mg tablet 2 mg PO Q4H PRN #28 tab 10/29/21 10/31/21 (Dilaudid) acetaminophen 500 mg capsule 1,000 mg PO Q8H PRN PRN #30 cap 10/31/21 aspirin 81 mg tablet,delayed 81 mg PO BID #60 tab 10/31/21 release ibuprofen 600 mg tablet 600 mg PO TID #30 tab 10/31/21 Previous Rx's Medication Instructions Recorded hydromorphone 2 mg tablet 2 mg PO Q4H PRN #28 tab 10/29/21 (Dilaudid) acetaminophen 500 mg capsule 1,000 mg PO Q8H PRN PRN #30 cap 10/31/21 aspirin 81 mg tablet,delayed 81 mg PO BID #60 tab 10/31/21 release ibuprofen 600 mg tablet 600 mg PO TID #30 tab 10/31/21 Allergies Allergy/AdvReac Type Severity Reaction Status Date / Time Latex, Natural Rubber AdvReac Mild Skin Rash Verified 10/31/21 10:44 General Stated Complaint: Orthopedic MITCH: 4 <Sally Hartley MD - Last Filed: 11/02/21 12:02> General Information obtained by: RN notes reviewed and old records reviewed . Review of Systems <Saurav Rosenberg MD - Last Filed: 10/29/21 07:24> Narrative: No chest pain or difficulty breathing. Denies new fall. 6 systems reviewed and otherwise negative PFSH <Saurav Rosenberg MD - Last Filed: 10/29/21 07:24> All Active Problems Bilateral carpal tunnel syndrome (Acute) Bimalleolar fracture of left ankle (Acute) Medical History Anxiety Anxiety with depression Carpal tunnel syndrome Claustrophobia Depression Fibromyalgia Gout Numbness and tingling Obesity (BMI 35.0-39.9 without comorbidity) CARLOS (obstructive sleep apnea) Poor circulation TMJ (temporomandibular joint disorder) Surgical History History of cholecystectomy Family History Father High blood cholesterol Mother Arthritis Osteoarthritis Paternal Grandfather Arthritis Osteoarthritis High blood cholesterol Hypertension Diabetes Abnormally prolonged clotting time Maternal Grandmother Arthritis Osteoarthritis High blood cholesterol Hypertension Rheumatoid arthritis Other Neoplasm Social History Smoking/Tobacco Use Status: Current every day Tobacco Type: cigarettes Quit status: considering quitting Smoking risk assessment performed?: Yes Alcohol Intake: never Drug use: Never Substance use type: does not use Household members: significant other and children Housing: apartment Number of Children: 2 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 Pleasant, well groomed, interactive. HEAD: Normocephalic, atraumatic ENT: Mucous membranes moist, oropharynx unremarkable, External ear exam unremarkable EYES: PERRL, EOMI NECK: Full ROM, no SAM, no menigismus CHEST/RESP: No respiratory distress EXT: Left lower extremity with short leg cast bivalved. Station intact distally, patient is able to move her toes. Calf is supple. Neuro: Grossly normal neurologic exam, conversant, interactive. Psych: Speech fluent, thoughts congruent, affect normal Course <Saurav Rosenberg MD - Last Filed: 10/29/21 07:24> Vital Signs Vital signs: Vital Signs Temperature 36.6 C 10/29/21 02:24 Pulse 100 H 10/29/21 02:24 Respiratory Rate 18 10/29/21 02:24 Blood Pressure 144/86 H 10/29/21 02:24 Pulse Oximetry 96 10/29/21 02:24 Temperature 36.6 C 10/29/21 02:24 Temperature Source Skin 10/29/21 02:24 Pulse 100 H 10/29/21 02:24 Respiratory Rate 18 10/29/21 02:24 Respiratory Effort 10/29/21 02:29 Blood Pressure 144/86 H 10/29/21 02:24 Blood Pressure Position Supine 10/29/21 02:24 Pulse Oximetry 96 10/29/21 02:24 Oxygen Delivery Method Room Air 10/29/21 02:24 Oxygen Flow Rate 0 10/29/21 02:24 Pain Level 10 10/29/21 02:30 <Sally Hartley MD - Last Filed: 11/02/21 12:02> Pt was discharged by Dr. Rosenberg prior to sign out; I did not see, evaluate, or treat this patient.
[2021-10-29] MEDS: ACETAMINOPHEN 1,000 MG/100 ML BTL 400 MG IVPB (02:44)
[2021-10-29] MEDS: HYDROmorphone 2 MG/ML VIAL 1 MG IVP (02:44)
[2021-10-29] MEDS: Ketorolac 15 MG/ML VIAL IVP (02:45)
--- NOTE | 2021-10-29 03:18 | DI.VRAD_ITS ---
PROCEDURE INFORMATION: Exam: XR Left Ankle Exam date and time: 10/29/2021 2:34 AM Age: 26 years old Clinical indication: Pain and condition or disease; Other: FX; Ankle; Left; Patient HX: Increasing pain after 'movement' TECHNIQUE: Imaging protocol: XR Left ankle. Views: 3 or more views. COMPARISON: CR XR ANKLE LT COMPLETE 10/28/2021 12:41 AM FINDINGS: Bones/joints: Casted views of the left ankle demonstrate Parker C ankle fracture with medial malleolar fracture and distal fibular shaft. There is widening of the medial gutter and lateral translation of the talus with respect to the tibia of approximately 4 mm. The talar dome is intact. There is mild distraction of the medial malleolar and distal fibular fractures. Soft tissues: Casted. IMPRESSION: Parker C ankle fracture Dictated and Authenticated by: Tanvir Gonzales MD. Ordering:LYDIA Mg MD
[2021-10-29 05:15] VITALS: BP 112/55; PULSE 89; RESP 18; O2SAT 98
[2021-10-29] MEDS: HYDROmorphone 2 MG TAB PO ×2 (05:33→05:34)
[2021-10-29] MEDS: HYDROmorphone 2 MG/ML VIAL 0.5 MG IVP (05:34)
--- NOTE | 2021-10-29 07:48 | OCONE_ITS ---
History of Present Illness Narrative: Lois is a 26 year old female who suffered a fall on Friday night (10/27). She had immediate pain and deformity and was brought into the [facility] ED by EMS and diagnosed with a ankle fracture dislocation. Dr. Suazo was consulted initially after 2 failed reduction attempts and the ankle was reduced and then casted. She presented again on Friday morning for increasing pain and numbness and tingling. With administration of some pain medications and bivalve of the cast things improved. Unfortunately, she felt a few movements in the cast and had one of her kids hit the leg which caused pain to increase and by this early childhood worker she was in unbearable pain. Therefore, she presented back to the ED early Friday morning. With administration of some pain medication her pain improved significantly and she had no numbness or tingling. I was consulted to discuss plan and pain/fracture management. Consults Consult date: 10/29/21 Requesting physician: Saurav Rosenberg Consult Reason Left Ankle Fracture-Dislocation Assessment and Plan Assessment and plan (1) Bimalleolar fracture of left ankle: Status: Acute Assessment and plan: Lois is a 26-year-old who suffered a left ankle fracture dislocation. She has been reduced and was placed into a cast. She is having increasing pain and some numbness in the the cast was bivalved. Analysis to be adequately bivalved I think majority of her pain is simply due to her fracture. She does not have signs of compartment syndrome. I would continue with the current pain management program. This will need operative fixation. I briefly reviewed this with her in detail and she elects to proceed. We will move forward this later in the week we will give the skin time to heal from the reduction and the swelling. Review of Systems All systems reviewed & are unremarkable except as noted in HPI and below PFSH All Active Problems Bilateral carpal tunnel syndrome (Acute) Bimalleolar fracture of left ankle (Acute) Medical History Anxiety Anxiety with depression Carpal tunnel syndrome Claustrophobia Depression Fibromyalgia Gout Numbness and tingling Obesity (BMI 35.0-39.9 without comorbidity) CARLOS (obstructive sleep apnea) Poor circulation TMJ (temporomandibular joint disorder) Surgical History History of cholecystectomy Family History Father High blood cholesterol Mother Arthritis Osteoarthritis Paternal Grandfather Arthritis Osteoarthritis High blood cholesterol Hypertension Diabetes Abnormally prolonged clotting time Maternal Grandmother Arthritis Osteoarthritis High blood cholesterol Hypertension Rheumatoid arthritis Other Neoplasm Social History Smoking/Tobacco Use Status: Current every day Tobacco Type: cigarettes Quit status: considering quitting Smoking risk assessment performed?: Yes Alcohol Intake: never Drug use: Never Substance use type: does not use Household members: significant other and children Housing: apartment Number of Children: 2 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 There is no significant tightness. Adequately bivalved. Able to extend and flex the big toe without significant pain. SILT DP/Tib/SP. Results Last Vital Signs Temp 36.6 C 10/29/21 02:24 Pulse 89 10/29/21 05:15 Resp 18 10/29/21 05:15 BP 112/55 L 10/29/21 05:15 Pulse Ox 98 10/29/21 05:15
== END 2021-10-29 08:11 | disposition home or self-care (01) ==
PROVIDERS: Emergency Provider Emergency Medicine; PCP Specialist/Technologist Athletic Trainer
DX: G89.11 Acute pain due to trauma (principal); S82.842A Displaced bimalleolar fracture of left lower leg, initial encounter for closed fracture; X58.XXXA Exposure to other specified factors, initial encounter
CPT/HCPCS: 96365; 96375; 96376; 99284; 73610; 99283; J0131; J1885

== ENCOUNTER 2021-10-30 01:02 | Outpatient (CLI) | payer MEDICAID, SELFPAY ==
[2021-10-30 13:13] LABS: COVID-19 PCR Negative (Negative)
[2021-10-30 14:08] LABS: Source Nasal/Nares
== END 2021-10-30 01:03 | disposition home or self-care (01) ==
LOC: LBO 01:02
PROVIDERS: PCP Specialist/Technologist Athletic Trainer; Visit Provider Student in an Organized Health Care Education/Training Program
DX: Z20.822 Contact with and (suspected) exposure to COVID-19 (principal); Z01.818 Encounter for other preprocedural examination
CPT/HCPCS: 87635

== ENCOUNTER 2021-10-31 10:33 | Day surgery (SDC) | payer MEDICAID, SELFPAY ==
[2021-10-31] VITALS (15 sets, daily range): BP systolic 95–151; BP diastolic 58–88; PULSE 68–86; RESP 11–16; TEMP 36.4–36.8; O2SAT 91–99; BMI 47.0
--- NOTE | 2021-10-31 06:46 | W.PM.DSUDISC ---
Discharge Plan Disposition Patient Disposition: HOME Condition: Stable Discharge Details Reason For Visit: Left Ankle ORIF Attending Provider: Benito Montano Primary Care Provider: María Gibbs Home Meds and New Rx's Prescriptions: New acetaminophen 500 mg capsule 1,000 mg PO Q8H PRN PRNQty: 30 0RF aspirin 81 mg tablet,delayed release (DR/EC) 81 mg PO BID Qty: 60 0RF ibuprofen 600 mg tablet 600 mg PO TID Qty: 30 0RF Continued venlafaxine [Effexor XR] 150 mg capsule,extended release 24hr 150 mg PO DAILY 0RF Mirena 20 mcg/24 hours (5 yrs) 52 mg intrauterine device 1 device IY ONCE 0RF Rx Instructions: as a single dose hydromorphone [Dilaudid] 2 mg tablet 2 mg PO Q4H PRNQty: 28 0RF Rx Instructions: stop previous prescribed oxycodone Discharge Instructions Additional Instructions: Ankle ORIF Discharge Instructions Activity: You are NON WEIGHT BEARING. You should keep the leg elevated as much as possible. You may wiggle your toes and move your hip and knee. Dressings: You should keep your splint clean and dry. Do NOT get wet or dirty. If you have issues with your splint, please call the office at [phone] or the hospital after hours. Medications: - You should take Tylenol and Ibuprofen around the clock for baseline pain. - You have been prescribed a stronger narcotic for breakthrough pain. - You should take a Baby Aspirin (81mg) twice a day for blood clot prevention. Follow-up: 2 weeks Referrals: Benito Montano MD [ [facility] STAFF PHYSICIAN] - Equipment/Supplies: Non-Weight Bearing Crutches Activity:: Activity as Tolerated Remove Dressings/Wound Care:: Do Not Remove Shower/Bathe:: 72 hours and Cover Diet:: As Tolerated Discharge Orders Discharge Orders: Discharge Order (Routine); Ordered 10/31/21 Ordered By: Mami Funk DS: Diagnosis Discharge Diagnosis (1) Bimalleolar fracture of left ankle: Status: Acute
--- NOTE | 2021-10-31 08:30 | ANES.PREOP_ITS ---
General Info Date of Service Date Performed: 10/31/21 Height: 5 ft 7 in Weight: 136.078 kg Body Mass Index (BMI): 47.0 Surgical Procedure: Operation Date: 10/31/21 12:25 Proposed Procedure Side Surgeon p Ankle ORIF Bimalleolar Left Benito Montano MD Meds Allergies and Home Medications Allergies Allergy/AdvReac Type Severity Reaction Status Date / Time Latex, Natural Rubber AdvReac Mild Skin Rash Verified 10/31/21 10:44 Home Medication Medication Instructions Recorded levonorgestrel 20 mcg/24 hours (7 1 device IY ONCE 05/10/20 yrs) 52 mg intrauterine device (Mirena) venlafaxine 150 mg 150 mg PO DAILY 05/10/20 capsule,extended release 24 hr (Effexor XR) hydromorphone 2 mg tablet 2 mg PO Q4H PRN #28 tab 10/29/21 (Dilaudid) acetaminophen 500 mg capsule 1,000 mg PO Q8H PRN PRN #30 cap 10/31/21 aspirin 81 mg tablet,delayed 81 mg PO BID #60 tab 10/31/21 release ibuprofen 600 mg tablet 600 mg PO TID #30 tab 10/31/21 Current Visit Medications: Current Medications Generic Name Dose Route Start Last Admin Trade Name Freq PRN Reason Stop Dose Admin Acetaminophen 1,000 mg 10/31/21 06:00 Acetaminophen 500 Mg Tab PO 10/31/21 16:00 PREOP MEGAN Acetaminophen 1,000 mg 10/31/21 08:30 Acetaminophen 500 Mg Tab PO TID [facility] Aspirin 81 mg 10/31/21 08:30 Aspirin E.C. 81 Mg Tabec PO BID MEGAN Celecoxib 400 mg 10/31/21 06:00 Celecoxib 200 Mg Cap PO 10/31/21 16:00 PREOP MEGAN Celecoxib 200 mg 10/31/21 08:30 Celecoxib 200 Mg Cap PO BID MEGAN Docusate Sodium 100 mg 10/31/21 06:45 Docusate Sodium 100 Mg Cap PO BID PRN PRN Constipation Gabapentin 300 mg 10/31/21 06:00 Gabapentin 300 Mg Cap PO 10/31/21 16:00 PREOP MEGAN Hydromorphone HCl 0.5 mg 10/31/21 06:45 Hydromorphone 2 Mg/Ml Vial IVP Q2H PRN PRN Ringer's Solution 1,000 mls @ 80 mls/hr 10/31/21 06:00 IV 11/12/21 23:59 INFUSION MEGAN Cefazolin Sodium 3,000 mg/ 100 mls @ 200 mls/hr 10/31/21 06:00 Sodium Chloride IVPB 10/31/21 16:00 PREOP MEGAN Tranexamic Acid 1,000 mg/ 60 mls @ 360 mls/hr 10/31/21 06:00 Sodium Chloride IVPB 10/31/21 16:00 DIRECTED MEGAN Cefazolin Sodium/Dextrose 1 gm in 50 mls @ 100 mls/hr 10/31/21 20:00 Ancef Duplex IVPB 11/01/21 12:29 Q8H MEGAN IV Miscellaneous Supplies 1 each 10/31/21 06:00 Iv Access IV 11/12/21 23:59 DIRECTED MEGAN Ondansetron HCl 4 mg 10/31/21 06:45 Ondansetron 4 Mg/2 Ml Vial IVP Q6H PRN PRN Nausea Oxycodone HCl 5 - 10 mg 10/31/21 06:45 Oxycodone 5 Mg Tab PO Q3H PRN PRN Pain Pantoprazole Sodium 40 mg 10/31/21 07:30 Pantoprazole 40 Mg Tabcr PO DAILY@0730 MEGAN Sodium Chloride 0 ml 10/31/21 06:00 Normal Saline Flush 10 Ml Syr IV 11/12/21 23:59 PRN PRN Sodium Chloride 0 ml 10/31/21 06:00 Normal Saline 10 Ml Vial IJ 11/12/21 23:59 DIRECTED PRN Sterile Water 0 ml 10/31/21 06:00 Water,Injection,Sterile 10 Ml Vial IJ 11/12/21 23:59 DIRECTED PRN PFSH Active Problems Active Problems: Problem Status Onset Code Bilateral carpal tunnel syndrome G56.03 Bimalleolar fracture of left ankle S82.842A Medical History Medical History (Updated 10/31/21 @ 10:44 by Andrzej Amezquita) Anxiety Anxiety with depression Carpal tunnel syndrome Claustrophobia Depression Fibromyalgia Gout Numbness and tingling Obesity (BMI 35.0-39.9 without comorbidity) CARLOS (obstructive sleep apnea) Poor circulation TMJ (temporomandibular joint disorder) Surgical History Surgical History History of cholecystectomy Tobacco Smoking/Tobacco Use Status: Current every day Tobacco Type: cigarettes Alcohol Alcohol Intake: never Substance Use Substance use: Never Substance use type: does not use Prental History History 2 Para 2 Hx # Term Pregnancies Multiple births Hx # Pregnancies Ectopic pregnancies AB induced Hx Number of Living Children AB spontaneous Vital Signs and Lab Results Lab Results Blood Type / Crossmatch: No Data to Display Complete Blood Count: No Data to Display Complete Metabolic Panel: No Data to Display Liver Function Panel: No Data to Display Coagulation Panel: No Data to Display Cardiac Panel: No Data to Display Arterial Blood Gas: No Data to Display Venous Blood Gas: No Data to Display Pancreas Panel: No Data to Display Thyroid Panel: No Data to Display Infectious Disease: Coronavirus (COVID-19)(PCR) Negative (Negative) 10/30/21 10:13 10/30/21 Coronavirus 2019 Source Nasal/Nares 10/30/21 10:13 10/30/21 Blood Cultures: No Data to Display Toxicology Panel: No Data to Display Panel: No Data to Display Anesthesia Assessment and Plan Anesthesia History Personal History: No History of Anesthesia Complications Family History: No Family History of Anesthesia Complications Exercise Tolerance Exercise Tolerance: Metabolic Equivalents>4 Pertinent Negatives Pertinent Negatives: No Symptoms of GERD Cardiac & Pulmonary Exam Cardiac Exam: Normal S1/S2 Heart Sounds Pulmonary Exam: Clear Bilateral Breath Sounds Implantable Cardiac Device Does patient have a Pacemaker or an ICD?: No Airway Exam Known Difficult Airway: No Mallampati Class: 2 Mouth Opening: Normal (> 3cm) Thyromental Distance: Greater than 3 cm Neck Range of Motion: Full ROM Neck Circumference: Normal Teeth Condition: Normal Dentition ASA Classification ASA Score: ASA 3 Emergency Case?: No NPO Status NPO Status: NPO Clears >2 hours, Solids >8 hours Status Status: Other (Obtaining currently will add status as addendum. ) Anesthesia Plan Resuscitation Status: Full Code Anesthesia Technique: General Anesthesia Airway Planned: Endotracheal Tube Pain Management: Surgeon and patient request nerve block Monitors Used: Standard Monitors
[2021-10-31] MEDS: Celecoxib 200 MG CAP 400 MG PO (11:17)
[2021-10-31] MEDS: Lactated Ringers 1,000 ML 80 ML IV (11:17)
[2021-10-31] MEDS: Gabapentin 300 MG CAP PO (11:18)
[2021-10-31] MEDS: Acetaminophen 500 MG TAB 1000 MG PO (11:18)
--- NOTE | 2021-10-31 11:59 | HPE_ITS ---
Assessment and Plan Assessment and plan (1) Bimalleolar fracture of left ankle: Status: Acute Assessment and plan: Lois is a 26-year-old who a left ankle fracture dislocation. This is a grossly unstable injury which needs operative fixation. I did discuss the technical features of the case. I reviewed the risk of the procedure to include bleeding, infection, pain, stiffness, damage to nerves and vessels, damage to muscle and tendons, malunion, nonunion, hardware prominence, hardware failure, blood clot. Despite these risks, she elects to proceed. History of Present Illness Narrative: oLis is a 26-year-old who suffered a fall that resulted in ankle fracture dislocation of the left ankle. She was seen in emergency department initially with failed reduction attempt x2. Dr. Suazo from orthopedics was consulted who performed a closed reduction and casting. She has been in the cast although with some pain. The cast has been bivalved. She has been better over the past few days been trying to keep it elevated. She denies any numbness or tingling. She denies any fevers or chills. No chest pain or shortness of breath. No COVID-19 contacts or symptoms. Review of Systems All systems reviewed & are unremarkable except as noted in HPI and below PFSH All Active Problems Bilateral carpal tunnel syndrome (Acute) Bimalleolar fracture of left ankle (Acute) Medical History Anxiety Anxiety with depression Carpal tunnel syndrome Claustrophobia Depression Fibromyalgia Gout Numbness and tingling Obesity (BMI 35.0-39.9 without comorbidity) CARLOS (obstructive sleep apnea) Poor circulation TMJ (temporomandibular joint disorder) Surgical History History of cholecystectomy Family History Father High blood cholesterol Mother Arthritis Osteoarthritis Paternal Grandfather Arthritis Osteoarthritis High blood cholesterol Hypertension Diabetes Abnormally prolonged clotting time Maternal Grandmother Arthritis Osteoarthritis High blood cholesterol Hypertension Rheumatoid arthritis Other Neoplasm Social History Smoking/Tobacco Use Status: Current every day Tobacco Type: cigarettes Quit status: considering quitting Smoking risk assessment performed?: Yes Alcohol Intake: never Drug use: Never Substance use type: does not use Household members: significant other and children Housing: apartment Number of Children: 2 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 Pets and animals: Yes Pets and animals: cat(s) and dog(s) Seatbelt use: always Do you feel safe at home: Yes Do you feel safe in your relationship?: Yes Female Reproductive History Menstrual control method: progestin IUCD History History 2 Para 2 Hx # Term Pregnancies Multiple births Hx # Pregnancies Ectopic pregnancies AB induced Hx Number of Living Children AB spontaneous Meds Allergies and Home Medications Allergies Allergy/AdvReac Type Severity Reaction Status Date / Time Latex, Natural Rubber AdvReac Mild Skin Rash Verified 10/31/21 10:44 Home Medications Medication Instructions Recorded Confirmed Type levonorgestrel 20 mcg/24 hours (7 1 device IY ONCE 05/10/20 10/30/21 History yrs) 52 mg intrauterine device (Mirena) venlafaxine 150 mg 150 mg PO DAILY 05/10/20 10/31/21 History capsule,extended release 24 hr (Effexor XR) hydromorphone 2 mg tablet 2 mg PO Q4H PRN #28 tab 10/29/21 10/31/21 Rx (Dilaudid) acetaminophen 500 mg capsule 1,000 mg PO Q8H PRN PRN #30 cap 10/31/21 Rx aspirin 81 mg tablet,delayed 81 mg PO BID #60 tab 10/31/21 Rx release ibuprofen 600 mg tablet 600 mg PO TID #30 tab 10/31/21 Rx Exam Resp Auscultation: clear to auscultation bilaterally Cardio Rate: regular rate Rhythm: regular rhythm Results Last Vital Signs Temp 36.7 C 10/31/21 11:49 Pulse 85 10/31/21 11:56 Resp 16 10/31/21 11:56 BP 139/80 10/31/21 11:56 Pulse Ox 94 10/31/21 11:56
[2021-10-31] MEDS: ceFAZolin 3,000 MG in Normal Saline 100 ML 200 MG IVPB (12:26)
--- NOTE | 2021-10-31 12:46 | W.ANESNERVE ---
Nerve Block Single Injection Procedure Date and Time Date Performed: 10/31/21 Procedure Start: 11:45 Location Where Procedure Performed Procedure Location: Day Surgery Unit Reason Performed: Postoperative Analgesia Requesting Provider: Benito Montano Timeout Performed Timeout Performed: Yes Monitoring Used ECG, Blood Pressure and SpO2 Sterility Sterility: Hand Hygiene, Surgical Cap, Surgical Mask, Sterile Gloves and Chlorhexidine Sedation Given During Procedure Sedation Given (Indicate Dose Given): Versed IV (Divided doses) Dose:: 5 mg Patient Mental Status Patient Mental Status: Sedate with meaningful communication Nerve Block 1st Nerve Block: Laterality: Left Block Type: Adductor Canal Needle / Catheter Used: 120mm SonoPlex II Local Anesthetic Bolus (Indicate Dose Given): Lidocaine used for local infiltration of skin, Bupivacaine 0.5% Dose:: 7 and Exparel Dose:: 7 ml Additives (Indicate Dose Given): None Ultrasound: Sterile probe cover and gel used Ultrasound Image Saved?: Yes Nerve Stimulator: Not Used Paresthesia: None Procedure Tolerated: No Complications and Patient tolerated well Procedure Outcome: Successful Performed By: Kevon Caraballo 2nd Nerve Block: Laterality: Left Block Type: Popliteal Sciatic Needle / Catheter Used: 120mm SonoPlex II Local Anesthetic Bolus (Indicate Dose Given): Lidocaine used for local infiltration of skin, Injected in 3-5ml increments after negative blood aspiration, Bupivacaine 0.5% Dose:: 12 ml and Exparel Dose:: 13 ml Additives (Indicate Dose Given): None Ultrasound: Sterile probe cover and gel used Ultrasound Image Saved?: Yes Nerve Stimulator: Not Used Paresthesia: None Procedure Tolerated: No Complications and Patient tolerated well Procedure Outcome: Successful Performed By: Kevon Caraballo
[2021-10-31] MEDS: Bupivacaine 0.5% Pres-Free 30 ML VIAL (14:00)
--- NOTE | 2021-10-31 14:04 | DI.RAD_ITS ---
Exam(s) XR ANKLE LT 2V EXAM: XR ANKLE LT 2V CLINICAL HISTORY: left ankle fx TECHNIQUE: 2D and realtime digital imaging was performed. CONTRAST MATERIAL: Refer to procedure report. COMPARISON: CR,XR XR ANKLE LT COMPLETE from 10/29/2021 FINDINGS: Fluoroscopy was provided for Dr. Montano during the performance of a open reduction and internal fi xation of the left ankle fracture. Please refer to the procedure report for complete details. Ka,r=1.65 mGy IMPRESSION: RADIATION DOSE DELIVERED:
--- NOTE | 2021-10-31 15:03 | ROE_ITS ---
Date of service: 10/31/21 Time of Service: 14:15 Operative Note Operative Note DATE OF PROCEDURE: 10/31/21 PRE-OP DIAGNOSIS: Left Ankle Fracture Dislocation POST-OP DIAGNOSIS: same PROCEDURE: Open Reduction and Internal Fixation of Left Ankle Fracture - Distal Fibula, Medial Malleolus and Syndesmosis SURGEON: Benito Montano SALES ASSISTANT DISPLAYS: Mami Funk Refer to Anesthesia Record ESTIMATED BLOOD LOSS: 100 PATHOLOGY: none sent TOURNIQUET TIME: 0 COMPLICATIONS: None Patient was transported to: PACU Patient's condition: stable Indications: Lois who presented to the Emergency Department after a fall. X-rays confirmed the diagnosis of a left ankle fracture dislocaiton. Closed reduction was performed but it was unstable and had to be held with a cast. Given the involvement of both malleoli and the instability, I recommend operative fixation. I discussed the technical details of the surgery. I reviewed the risks such as bleeding, infection, pain, stiffness, malunion, nonunion, hardware prominence, hardware faiilure, malrotation, damage to nerves and vessels, blood clot. Despite these risks, [gender] agreed to proceed. Findings: There was a fracture of the tibia which was reduced with traction and internal rotation and external manipulation. This was secured with the IMN and screws. Procedure Description: Lois was greeted in the preoperative area. Consent was previously reviewed and signed. Nerve blocks are performed including adductor and popliteal. Once in the operating room, anesthesia was administered. The patient was transferred to the fracture table in the supine position. She was positioned in the supine position with the operative side placed onto a bone foam ramp. All bony prominences were well padded. Arms were placed out to the side, padded, and secured. A single dose of TXA, 1 gram, was then administered IV. Prophylactic antibiotics, Cefazolin 2 grams, was given for prophylactic antibiotics. A timeout was performed for safe surgery. The left leg was prepped with Chloraprep. The leg was draped with a stockinette and extremity drape. A curvilinear incision was made over the medial aspect of the ankle to expose the medial malleolus fragment. This was taken down sharply the skin and blunt dissection was utilized to expose the fracture. The deltoid ligament was ruptured at the level of the fracture site. Through this I was able to expose the fracture edges. Clear of any callus formation. Talus was laterally subluxed and the tibiotalar joint was irrigated. There is no loose pieces seen within the joint. Attention was then turned to the lateral side. A longitudinal incision was made centered over the fracture extended slightly distal for potential syndesmotic fixation. The incision was carried the skin and subtenons fat. Blunt dissectio n was carried onto the level of the fascia. The fascia was fully inspected for any branches of the superficial peroneal nerve. It was not seen and therefore the fascia was incised. A cohn elevator was utilized to elevate the tissues off of the fracture site of the lateral malleolus. The fracture was unable to be manipulated and fully reduced. There was a primary short oblique fracture fragment. However there was a shelf of bone posteriorly which was loose involving mostly just the posterior cortex of the fibula. This was neglected during the initial reduction. With reduction held using a K wire. I then placed an 8 hole one third tubular plate over the lateral fibula. I was able to secure this with 3 nonlocking screws on either side of the fracture. Bone quality was excellent in this nicely reapproximated the fracture site and held the plate onto bone. Attention was then turned back to the medial side. The medial fragment was reduced. With that being held in reduction 2 K wires from the 4.0mm cannulated screw set was placed. Reduction was confirmed with fluoroscopy. The screw path were then drilled and 240 millimeter cannulated screws were placed. This had excellent purchase and reapproximation of the medial malleolar fracture fragments. Fluoroscopy was then utilized to check for syndesmotic stability. As expected to be unstable and it was confirmed with stress view. Therefore I proceeded with syndesmotic fixation. I utilized the [employer] Fibulink system. A step drill was taken across the fibula through the distal hole of the plate approximately 2 cm above the tibiotalar joint line. The Fibulink device was inserted and tightened. The foot was dorsiflexed to neutral and the syndesmotic fixation was tightened. Prior to removing the tensioner, external rotation stress was once again performed and showed no gapping. The fibular anchor system then was removed. I then placed a cerclage FiberWire around the posterior cortical segment. This brought the posterior shelf close to the main shaft of the fibula. This was then tied. Both wounds were fully irrigated. The wounds were injected with 0.25% bupivacaine. The tear of the deltoid ligament was reapproximated with 0 Vicryl. The medial wound was then closed with a 3-0 Vicryl followed by a 4-0 nylon. The lateral wound periosteum was reapproximated with 0 Vicryl. Deep tissues were closed with a 3-0 Vicryl followed by 4-0 nylon. Both wounds were dressed with Xeroform, 4 x 4's, ABD, web roll. A posterior slab splint was placed. At the end of the case, all counts were correct. Lois tolerated the procedure well without known complication and was taken to the PACU for recovery. Physical therapy will start post-operatively, nonweightbearing with a splint. Anticoagulation will start within 12-24 hours. 3 doses of post-operative antibiotics for prophylaxis will be administered.
--- NOTE | 2021-10-31 15:38 | W.ANESPOSTOP ---
Postoperative Evaluation Date, Time and Location Date Performed: 10/31/21 Time Performed: 15:40 Patient Location: PACU Vital Signs Most Recent Imported Vital Signs: Most Recent Vital Signs Temp Pulse Resp BP Pulse Ox 36.5 C 69 14 119/67 91 L 10/31/21 15:28 10/31/21 15:28 10/31/21 15:28 10/31/21 15:28 10/31/21 15:28 Pain Score Most Recent Pain Score: Most Recent Pain Score Pain Level 0 10/31/21 11:49 Assessment Mental Status: Awake (Alert & Oriented to Patient Baseline) Airway and Respiratory Function: Patent airway with normal (patient baseline) respiratory exam Cardiovascular Function: Hemodynamically Stable Hydration Status: Adequately Hydrated Nausea & Vomiting: No Nausea or Vomiting Pain: Pain is tolerable per patient Peripheral Nerve Block: Regional nerve block not resolved at time of post operative discharge
== END 2021-10-31 16:40 | disposition home or self-care (01) ==
PROVIDERS: PCP Nurse Practitioner Family; Visit Provider Student in an Organized Health Care Education/Training Program
PROC: (CPT 27814; principal; 2021-10-31 12:15)
DX: S82.842A Displaced bimalleolar fracture of left lower leg, initial encounter for closed fracture (principal); S93.432A Sprain of tibiofibular ligament of left ankle, initial encounter; W19.XXXA Unspecified fall, initial encounter
CPT/HCPCS: 27814; 27829; C1713; 76942; 81025; 73600; J0690; J1100; J2001; J2250; J2405; J3010

== ENCOUNTER 2021-11-12 11:03 | Outpatient (CLI) | payer MEDICAID, SELFPAY ==
--- NOTE | 2021-11-12 09:31 | DI.RAD_ITS ---
Exam(s) XR ANKLE LT COMPLETE EXAM: XR ANKLE LT COMPLETE INDICATION: ORIF L ANKLE. COMPARISON: CR,XR XR ANKLE LT COMPLETE from 10/29/2021 XR ANKLE LT 2V from 10/31/2021 TECHNIQUE: 2D digital imaging was performed. FINDINGS: There has been no change in hardware or fracture alignment. No new abnormalities are seen. DATA REPOSITORY: RADIATION DOSE DELIVERED:
== END 2021-11-12 11:04 | disposition home or self-care (01) ==
LOC: DIORS 11:03
PROVIDERS: PCP Nurse Practitioner Family; Referring Provider Nurse Practitioner Family; Visit Provider Student in an Organized Health Care Education/Training Program
DX: S82.842D Displaced bimalleolar fracture of left lower leg, subsequent encounter for closed fracture with routine healing (principal); W19.XXXD Unspecified fall, subsequent encounter
CPT/HCPCS: 73610

== ENCOUNTER 2021-12-10 14:12 | Outpatient (CLI) | payer MEDICAID, SELFPAY ==
--- NOTE | 2021-12-10 14:03 | DI.RAD_ITS ---
Exam(s) XR ANKLE LT 2V EXAM: XR ANKLE LT 2V INDICATION: 1ST POST OP L ANKLE FX. COMPARISON: CR XR ANKLE LT COMPLETE from 11/12/2021 TECHNIQUE: 2D digital imaging was performed. Two views. FINDINGS: There has been no change in fracture or hardware alignment. Continued healing. No new abnormalities . DATA REPOSITORY: RADIATION DOSE DELIVERED:
== END 2021-12-10 14:13 | disposition home or self-care (01) ==
LOC: DIORS 14:12
PROVIDERS: PCP Nurse Practitioner Family; Referring Provider Nurse Practitioner Family; Visit Provider Student in an Organized Health Care Education/Training Program
DX: S82.842D Displaced bimalleolar fracture of left lower leg, subsequent encounter for closed fracture with routine healing (principal); W19.XXXD Unspecified fall, subsequent encounter
CPT/HCPCS: 73600

== ENCOUNTER → 2022-04-25 00:50 | Outpatient (CLI) | payer MEDICAID, SELFPAY ==
--- NOTE | 2022-04-25 | DI.US_ITS ---
Exam(s) US BREAST LT COMPLETE US BREAST RT COMPLETE EXAM: US BREAST BILATERAL COMPLETE CLINICAL HISTORY: LT BREAST LUMP AT 900. TECHNIQUE: Complete ultrasound of BOTH BREASTS was performed including all 4 quadrants, the retroare olar regions, and both axillary regions.. COMPARISON: None. This 26-year-old patient feels lumps in the medial aspect of both breast which sh e feels are the ???size of grapes???. This has apparently been ongoing for some time and previously investigated at another institution (apparently without significant findings). FINDINGS: There is no evidence of solid or significant cystic lesions in all 4 quadrants of both breasts. No f indings including no dilated ducts in the retroareolar regions bilaterally. Scanning of both axillary regions give for adenopathy. IMPRESSION: Negative bilateral complete breast ultrasound. If clinically indicated further study with 3D tomosynthesis mammography can be performed. BI-RADS Category 1 - Negative bilateral breast ultrasound Breast Density - Category C - Heterogeneously dense Breast density Category C or D implies that the patient has dense breast tissue. Dense breast tissue can make it harder to find cancer on a mammogram. Dense breast tissue is also associated with an incr eased risk of breast cancer. This information about the result of the mammogram report was provided to the patient to raise their awareness. Use this report when you speak with the patient about their risks for breast cancer, which includes their family history. At that time, you may recommend additional screening tests (Ultrasoun d or MRI) as these tests may add significant information. A negative radiographic report should not delay biopsy if a dominant or clinically suspicious mass is present. Up to ten percent of cancers are not identified on mammography. A negative report may reinforce clinical impression. Adenosis and dense breasts may obscure an underlying neoplasm. False positive reports average 6 to 10%. Patient will receive a letter notifying them of these results.
== END ==
PROVIDERS: PCP Nurse Practitioner Family; Visit Provider Nurse Practitioner Family
DX: R92.8 Other abnormal and inconclusive findings on diagnostic imaging of breast (principal)
CPT/HCPCS: 76642

== ENCOUNTER 2022-04-26 15:51 | Outpatient (REF) | payer MEDICAID, SELFPAY ==
[2022-04-29 11:43] LABS: Hepatitis C Ab w Rflx HCV PCR Negative (Negative)
[2022-04-29 12:36] LABS: HIV-1/2 Ag & Ab Screen Negative (Negative)
== END 2022-04-26 15:52 | disposition home or self-care (01) ==
LOC: NCHCN 15:51
PROVIDERS: PCP Nurse Practitioner Family; Visit Provider Nurse Practitioner Family
DX: Z11.4 Encounter for screening for human immunodeficiency virus [HIV] (principal); Z11.59 Encounter for screening for other viral diseases
CPT/HCPCS: 86803; 87389

== ENCOUNTER 2022-06-10 16:52 | Outpatient (REF) | payer MEDICAID, SELFPAY ==
[2022-06-15 12:37] LABS: Benzoylecgonine 807 ng/mL (Cutoff: 50); Cocaine Negative ng/mL (Cutoff: 50); Cocaine Interpretation Positive.
== END 2022-06-10 16:53 | disposition home or self-care (01) ==
LOC: NCHCN 16:52
PROVIDERS: PCP Nurse Practitioner Family; Visit Provider Nurse Practitioner Family
DX: F55.8 Abuse of other non-psychoactive substances (principal)
CPT/HCPCS: 80353

== ENCOUNTER 2022-09-25 01:53 | Outpatient (CLI) | payer MEDICAID, SELFPAY ==
--- NOTE | 2022-09-25 | DI.MAMMO_ITS ---
Exam(s) MAMMO DIAGNOSTIC BI EXAM: MAMMO DIAGNOSTIC BI CLINICAL HISTORY: BILAT BREAST LUMPS N63.0, FU FROM 04/2022 US TECHNIQUE: Mammograms were interpreted according to the usual protocol including computer analysis w [employer] CAD system, tomosynthesis and C-view imaging. COMPARISON: Bilateral breast ultrasound May 06 FINDINGS: The breasts are composed of mainly fatty density , Breast Density category A. No suspicious masses or suspicious microcalcifications are seen. No skin thickening or abnormal axillary lymph nodes are seen. IMPRESSION: BI-RADS Category 1, Negative mammogram Yearly screening mammography is recommended. Breast Density - Category A, fatty density. A negative radiographic report should not delay biopsy if a dominant or clinically suspicious mass is present. Up to ten percent of cancers are not identified on mammography. A negative report may reinforce clinical impression. Adenosis and dense breasts may obscure an underlying neoplasm. False positive reports average 6 to 10%. Patient will receive a letter notifying them of these results.
== END 2022-09-25 02:13 ==
LOC: DI 01:54
PROVIDERS: PCP Nurse Practitioner Family; Visit Provider Nurse Practitioner Family
DX: R92.8 Other abnormal and inconclusive findings on diagnostic imaging of breast (principal)
CPT/HCPCS: 77062; 77066; G0279

== ENCOUNTER 2022-09-30 18:57 | Emergency (ER) | payer MEDICAID, SELFPAY ==
[2022-09-30 19:02] VITALS: BP 147/98; PULSE 99; RESP 16; TEMP 36; O2SAT 97
--- NOTE | 2022-09-30 19:15 | DI.CT_ITS ---
Exam(s) CT ABDOMEN PELVIS W EXAM: CT ABDOMEN PELVIS W CLINICAL HISTORY: vaginal pain, bleeding/ discharge after sex toy. TECHNIQUE: Imaging Protocol: Axial computed tomography images with coronal and sagittal reformatted images were created and reviewed CONTRAST MATERIAL: Intravenous: Omnipaque-350 100cc Oral: None COMPARISON: No exams were available for comparison FINDINGS: VISUALIZED LUNG BASES: There is a 4 millimeter nodule in the lateral segment of the right middle lobe noted.. No pleural effusions. No other nodules in the visualized lung bases. ABDOMEN: There is no ascites. LIVER: There are no focal hepatic lesions evident. GALLBLADDER/BILIARY: Gallbladder surgically absent. CBD slightly prominent in size which is probably related to post cholecystectomy status. There is no radiopaque calculus seen in the lower CBD. PANCREAS: No evidence of pancreatic mass nor acute pancreatitis. Diameter of the pancreatic duct is slightly prominent at the neck level measuring 3 millimeters. SPLEEN: Spleen is not enlarged. No obvious intrasplenic lesions. Splenic and portal veins are paten t. ADRENALS: There are no significant adrenal masses. KIDNEYS:There is an 8 millimeter benign cyst in the superior pole the right kidney. No other signifi cant focal renal findings. No calculi. No hydronephrosis. ABDOMINAL AORTA: Abdominal aorta is not enlarged. LYMPH NODES:There is no retroperitoneal nor paraaortic adenopathy. ABDOMINAL WALL: No evidence of significant anterior abdominal wall nor inguinal hernia. GI: There is no evidence of bowel obstruction, free air, nor abscess. PELVIS: GI: No evidence of appendicitis.No evidence of sigmoid diverticulitis. LYMPH NODES: There is no intrapelvic nor inguinal adenopathy. REPRODUCTIVE: There is an IUD in the endometrial cavity. Uterus size is normal. No abnormal adnexal masses. No free fluid in the cul-de-sac. URINARY BLADDER: Urinary bladder is collapsed. OSSEOUS: No significant osseous lesions. IMPRESSION: 1. No evidence of pneumoperitoneum, given the history. No ascites. 2. Gallbladder surgically absent. CBD mildly prominent diameter which is most probably related to po st cholecystectomy status. 3. IUD in satisfactory position in the endometrial canal of the normal size anteverted uterus. There are no abnormal adnexal findings. No free fluid in the pelvis. 4. Urinary bladder is collapsed and difficult to evaluate. There is no abnormal perivesicular streak ing. 5. Incidentally noted is a small 4 millimeter nodule in the lateral aspect of the partially visualiz ed right middle lobe. RADIATION DOSE DELIVERED: 1,285.92mGy.cm Total DLP DATA REPOSITORY: All CT scans at this facility are submitted to the National Radiology Data Registry (NRDR) Dose Index Registry (DIR) with the [employer] (ACR). RADIATION OPTIMIZATION: All CT scans at this facility use at least one of these dose optimization te chniques: automated exposure control; mA and/or kV adjustment per patient size (includes targeted exa ms where dose is matched to clinical indication); or iterative reconstruction.
[2022-09-30 19:18] LABS: Bilirubin Moderate (Negative); Blood Negative (Negative); Clarity Cloudy (Clear); Glucose Negative (Negative); Ketones 40 mg/dL (Negative); Leukocyte Esterase Trace (Negative); Nitrite Negative (Negative); Specific Gravity >= 1.030 (1.005-1.025); pH 5.5 (5-8)
[2022-09-30 19:27] LABS: Bacteria Moderate HPF (Negative); C & S Indicated? Yes; Casts Negative LPF (Negative); Crystals Negative HPF (Negative); Epithelial Cells Few HPF (Negative); Mucus Moderate (Negative); RBC 0-2 HPF (0-2)
--- NOTE | 2022-09-30 19:31 | W.ED.GENAD ---
Discharge Plan Disposition Patient Disposition: Eloped Condition: Stable Discharge Details Clinical Impression: Pelvic pain Primary Care Provider: María Gibbs ED Provider: Jasbir Chadwick Home Meds and New Rx's Prescriptions: New doxycycline hyclate 100 mg capsule 100 mg PO BID 7 Days Qty: 14 0RF No Action venlafaxine [Effexor XR] 150 mg capsule,extended release 24hr 150 mg PO DAILY Mirena 20 mcg/24 hours (5 yrs) 52 mg intrauterine device 1 device IY ONCE Rx Instructions: as a single dose Adult Multivitamin Gummies 200 mcg tablet,chewable PO DAILY acetylcysteine [NAC] 600 mg capsule 1,200 mg PO BID PRN melatonin 10 mg tablet 10 mg PO HS PRN Mirena 20 mcg/24 hours (7 yrs) 52 mg intrauterine device 1 device intrauterine ONCE Rx Instructions: as a single dose venlafaxine 37.5 mg tablet 37.5 mg PO DAILY Rx Instructions: take with 150 mg tablet venlafaxine 150 mg capsule,extended release 24hr 150 mg PO DAILY acetaminophen 500 mg capsule 1,000 mg PO Q8H PRN PRNQty: 30 0RF ibuprofen 600 mg tablet 600 mg PO TID Qty: 30 0RF Discharge Instructions Instructions: Vaginal Discharge (ED) Additional Instructions: 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 Please return to the emergency department for any worsening symptoms Medical Decision Making 27-year-old female presents with pelvic pain over the past several days, was using her vibrator internally several days ago had a large gush of blood come out, since then she has not been bleeding however has had some foul-smelling white discharge, she has 1 male sexual partner who has multiple other sexual partners, her partner also was endorsing urethral irritation over the past several days. Patient has IUD in place. Appears moderately uncomfortable, no active bleeding, scant white discharge within vaginal vault, no appreciable lacerations or hematoma however cervix incompletely visualized. Patient will benefit from pelvic ultrasound however given degree of pain currently will obtain CT abdomen pelvis to assess for cervical or vaginal laceration or deep space infection. Will treat empirically for gonorrhea chlamydia. Disposition pending reassessment and results 20: 27 patient screaming in room, pulled out her own IV, does not want to wait in department, has accused us of thinking she is drug-seeking, also claiming that there is a scank in her house and she needs to get home and cannot wait. HPI General Date/Time Provider Initiated Documentation: 09/30/22 19:07. HPI Narrative: 27-year-old female presents with several days of vaginal discomfort and discharge, patient was using her vibrator internally several days ago had a gush of blood come out since then has had some foul-smelling white discharge, is in both 1 male sexual partner who has multiple other partners, he endorses that he had penile irritation over the past several days. Patient has an IUD in place. No further bleeding today. However still experiencing lower pelvic discomfort. Related Data Home Medications Medication Instructions Recorded Confirmed levonorgestrel 20 mcg/24 hours (8 1 device intrauterine ONCE 05/10/20 12/10/21 yrs) 52 mg intrauterine device (Mirena) venlafaxine 150 mg 150 mg PO DAILY 05/10/20 12/10/21 capsule,extended release 24 hr (Effexor XR) acetaminophen 500 mg capsule 1,000 mg PO Q8H PRN PRN #30 caps 10/31/21 12/10/21 ibuprofen 600 mg tablet 600 mg PO TID #30 tabs 10/31/21 12/10/21 acetylcysteine 600 mg capsule (NAC) 1,200 mg PO BID PRN 06/26/22 levonorgestrel 20 mcg/24 hours (8 1 device intrauterine ONCE 06/26/22 yrs) 52 mg intrauterine device (Mirena) melatonin 10 mg tablet 10 mg PO HS PRN 06/26/22 multivitamin with minerals-folic tab PO DAILY 06/26/22 acid 200 mcg chewable tablet (Adult Multivitamin Gummies) venlafaxine 150 mg 150 mg PO DAILY 06/26/22 capsule,extended release 24 hr venlafaxine 37.5 mg tablet 37.5 mg PO DAILY 06/26/22 doxycycline hyclate 100 mg capsule 100 mg PO BID 7 days #14 caps 09/30/22 Previous Rx's Medication Instructions Recorded acetaminophen 500 mg capsule 1,000 mg PO Q8H PRN PRN #30 caps 10/31/21 ibuprofen 600 mg tablet 600 mg PO TID #30 tabs 10/31/21 doxycycline hyclate 100 mg capsule 100 mg PO BID 7 days #14 caps 09/30/22 Allergies Allergy/AdvReac Type Severity Reaction Status Date / Time Latex, Natural Rubber AdvReac Mild Skin Rash Verified 12/10/21 13:53 General Stated 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 Review of Systems Narrative: Review of Systems Constitutional: negative Eyes: negative ENT: negative Cardiovascular: negative Respiratory: negative Gastrointestinal: negative : Pelvic pain Musculoskeletal: negative Skin: negative Neurologic: negative Psych: negative PFSH All Active Problems (Updated 09/30/22 @ 20:30 by Jasbir Chadwick MD) Pelvic pain (Acute) Dependency on pain medication (Acute) Low back pain (Acute) Vitamin D deficiency (Acute) Bimalleolar fracture of left ankle (Acute 10/27/21) S/P ORIF: 10/31/2021 Bilateral carpal tunnel syndrome (Acute) Medical History (Updated 09/30/22 @ 20:30 by Jasbir Chadwick MD) Anemia Anxiety Anxiety with depression Carpal tunnel syndrome Claustrophobia Depression Fibromyalgia Gout Numbness and tingling Obesity (BMI 35.0-39.9 without comorbidity) CARLOS (obstructive sleep apnea) Poor circulation TMJ (temporomandibular joint disorder) Surgical History (Updated 12/10/21 @ 13:58 by SATISH Cruz) History of cholecystectomy Family History Father High blood cholesterol Mother Arthritis Osteoarthritis Paternal Grandfather Arthritis Osteoarthritis High blood cholesterol Hypertension Diabetes Abnormally prolonged clotting time Maternal Grandmother Arthritis Osteoarthritis High blood cholesterol Hypertension Rheumatoid arthritis Other Neoplasm Social History (Updated 06/26/22 @ 10:12 by Xiao Darling RN, RN) Smoking/Tobacco Use Status: Current every day Tobacco Type: cigarettes Smokeless tobacco user: other Quit status: considering quitting Smoking risk assessment performed?: Yes Alcohol Intake: never Drug use: Never Substance use type: does not use Household members: significant other and children Housing: apartment Number of Children: 2 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 Pets and animals: Yes Pets and animals: cat(s) and dog(s) Seatbelt use: always Do you feel safe at home: Yes Do you feel safe in your relationship?: Yes Female Reproductive History Menstrual control method: progestin IUCD History History 2 Para 2 Hx # Term Pregnancies Multiple births Hx # Pregnancies Ectopic pregnancies AB induced Hx Number of Living Children AB spontaneous Exam Narrative Exam Narrative: Physical Examination General: alert, awake, cooperative, resting comfortably, no acute distress GI: abdomen soft, non-tender, non-distended; no palpable mass or hepatosplenomegaly : Normal external genitalia, scant amount of white discharge within vaginal vault, cervix incompletely visualized however no appreciable hematoma or laceration Skin: no lesions, rashes or trauma appreciated Neuro: AAOx3, normal speech, moving all extremities Psych: Appropriate mood and affect Course Vital Signs Vital signs: Vital Signs Temperature 36 C L 09/30/22 19:02 Pulse 99 H 09/30/22 19:02 Respiratory Rate 16 09/30/22 19:02 Blood Pressure 147/98 H 09/30/22 19:02 Pulse Oximetry 97 09/30/22 19:02 Temperature 36 C L 09/30/22 19:02 Temperature Source Tympanic 09/30/22 19:02 Pulse 99 H 09/30/22 19:02 Respiratory Rate 16 09/30/22 19:02 Respiratory Effort 09/30/22 19:10 Blood Pressure 147/98 H 09/30/22 19:02 Pulse Oximetry 97 09/30/22 19:02 Oxygen Delivery Method Room Air 09/30/22 19:02 Oxygen Flow Rate 0 09/30/22 19:02 Pain Level 8 09/30/22 19:02 Lab/Test Results Lab/Test Results: 09/30/22 19:15 Urine - Reflex from Ua Urine Culture - Pending Laboratory Tests Range/Units 09/30/22 19:15 Urine Color (Yellow) Yellow Urine Clarity (Clear) Cloudy Urine pH (5-8) 5.5 Ur Specific [place] (1.005-1.025) >= 1.030 H Urine Protein (Negative) mg/dL 100 H Urine Ketones (Negative) mg/dL 40 H Urine Blood (Negative) Negative Urine Nitrite (Negative) Negative Urine Bilirubin (Negative) Moderate H Urine Urobilinogen (Up TO 0.2) EU/dL 4.0 H Ur Leukocyte Esterase (Negative) Trace H Urine RBC (0-2) HPF 0-2 Urine WBC (0-5) HPF 5-10 Ur Epithelial Cells (Negative) HPF Few Urine Crystals (Negative) HPF Negative Urine Bacteria (Negative) HPF Moderate Urine Casts (Negative) LPF Negative Urine Mucus (Negative) Moderate Ur Culture Indicated? Yes Urine Glucose (Negative) mg/dL Negative POC- Test(urine) Negative
[2022-09-30] MEDS: Ketorolac 15 MG/ML VIAL IVP (19:51)
[2022-09-30] MEDS: Doxycycline Hyclate 100 MG CAP PO (19:51)
[2022-09-30] MEDS: cefTRIAXone 500 MG VIAL IM (19:51)
[2022-09-30] MEDS: Normal Saline 1,000 ML 1000 ML IV (19:51)
[2022-09-30 19:53] LABS: Abs Immature Grans 0.02 10^3/uL (0.0-0.06); Absolute Basophil Count 0.06 10^3/uL (0.0-0.2); Absolute Eosinophil Count 0.12 10^3/uL (0.0-0.7); Absolute Lymphocyte Count 2.82 10^3/uL (1.2-3.4); Absolute Monocyte Count 0.71 10^3/uL (0.1-0.8); Absolute Neutrophil Count 5.33 10^3/uL (1.2-6.7); Basophils % 0.7; Eosinophils % 1.3; HCT 43.8 % (36.0-46.0); HGB 14.7 g/dL (11.2-15.7); Immature Grans % 0.2; Lymphocytes % 31.1; MCH 30.1 pg (27.0-33.0); MCHC 33.6 % (32.0-36.0); MCV 90 fL (80-95); MPV 9.4 fL (8.0-11.0); Monocytes % 7.8; Neutrophils % 58.9; Platelet Count 345 10^3/uL (130-400); RBC 4.89 10^6/uL (3.93-5.22); RDW 12.4 % (11.7-14.6); WBC 9.06 10^3/uL (4.4-10.8)
[2022-09-30 20:01] LABS: ALT 57 U/L (14-59); AST 32 U/L (15-37); Albumin 4.1 g/dL (3.4-5.0); Alkaline Phosphatase 117 U/L (46-116); Anion Gap 11.6 mmol/L (3-11); BUN 12 mg/dL (7-18); Bilirubin, Total 0.6 mg/dL (0.2-1.0); CO2 23.4 mmol/L (21.0-32.0); Calcium 9.3 mg/dL (8.5-10.1); Chloride 103 mmol/L (98-107); Glucose 104 mg/dL (74-106); Sodium 138 mmol/L (136-145); Total Protein 8.2 g/dL (6.4-8.2)
[2022-09-30] MEDS: Omnipaque 350 MG/ML 100 ML BTL IJ (20:06)
[2022-09-30] MEDS: Normal Saline - Diluent 50 ML VIAL IJ (20:07)
[2022-09-30] MEDS: Normal Saline Flush 10 ML SYR IVP (20:07)
--- NOTE | 2022-09-30 21:08 | DI.VRAD_ITS ---
PROCEDURE INFORMATION: Exam: CT Abdomen And Pelvis With Contrast Exam date and time: 09/30/2022 7:49 PM Age: 27 years old Clinical indication: Abdominal pain; Localized; Left; Prior surgery; Surgery date: 6+ months; Surgery type: Cholecystectomy; Patient HX: Vaginal pain, bleeding/ discharge after sex toy TECHNIQUE: Imaging protocol: Computed tomography of the abdomen and pelvis with contrast. Radiation optimization: All CT scans at this facility use at least one of these dose optimization techniques: automated exposure control; mA and/or kV adjustment per patient size (includes targeted exams where dose is matched to clinical indication); or iterative reconstruction. Contrast material: OMNIPAQUE 350; Contrast volume: 101 ml; Contrast route: INTRAVENOUS (IV); COMPARISON: US PELVIS TRANSVAGINAL 04/20/2019 1:32 PM FINDINGS: Lungs: Within the anterior right lower lobe along the major fissure there is 4 mm intrafissural lymph node with additional 3 mm nodule within the posterior right lower lobe (series 4, image 10). If the patient does not have known cancer, follow up should be based on clinical information because of the low risk of cancer in this age group. (Reference: [email or web address]) Liver: Focal hypoattenuation along the anterior falciform ligament compatible with focal fatty infiltration. Liver is not enlarged. No mass. Gallbladder and bile ducts: Gallbladder surgically absent. Common bile duct is dilated measuring approximately 10 mm in diameter with mild intrahepatic ductal dilation. Pancreas: Main pancreatic duct is prominent measuring 3 mm within the pancreatic neck (series 4, image 27). No peripancreatic inflammatory stranding or fluid collection. Spleen: Spleen is at the upper limits of normal for size. No mass. Adrenal glands: Normal. No mass. Kidneys and ureters: Subcentimeter hypodensity within the superior pole of the right kidney is too small to characterize. Otherwise symmetric renal enhancement. No hydronephrosis. Ureters are normal in course and caliber. Stomach and bowel: No evidence of bowel obstruction. No focal bowel wall thickening. Mild scattered colonic stool. Appendix: Within normal limits. Intraperitoneal space: No free fluid in the abdomen or pelvis. No free air. Retroperitoneal space: No retroperitoneal hematoma. Vasculature: No abdominal aortic aneurysm or dissection. Lymph nodes: No pathologically enlarged mesenteric or retroperitoneal lymph nodes. Urinary bladder: Bladder decompressed limiting evaluation with mild diffuse bladder wall thickening. Reproductive: IUD within the central uterus in expected location. Few small foci of air within the vagina, nonspecific finding. Bones/joints: Unremarkable. No acute fracture. Soft tissues: Trace/small fat containing umbilical hernia. IMPRESSION: 1. No pneumoperitoneum. 2. Common bile duct is dilated (10 mm) with prominent main pancreatic duct (3 mm). May be related to Sphincter of Oddi dysfunction, possibly secondary to prior cholecystectomy, but nonspecific. Correlate clinically to exclude distal biliary obstruction. 3. Bladder decompressed limiting evaluation with mild diffuse bladder wall thickening. May represent changes of underdistention versus acute cystitis. Correlate clinically. 4. Additional nonacute findings as discussed. REFERENCES: Vincenzo H, et al. Guidelines for Management of Incidental Pulmonary Nodules Detected on CT Images: From the Fleischner Society 2017. Radiology. 2017;284(1):228-243. Dictated and Authenticated by: Tanvir Caraballo MD. Ordering:WILFREDO Martell MD
[2022-10-02 13:14] LABS: Chlamydia Result Negative (Negative); GC Result Negative (Negative)
== END 2022-09-30 20:30 | disposition left against medical advice (07) ==
PROVIDERS: Emergency Provider Emergency Medicine; PCP Nurse Practitioner Family
DX: R10.2 Pelvic and perineal pain (principal)
CPT/HCPCS: 36415; 80053; 81025; 87491; 87591; 96361; 96372; 96374; 99285; 74177; 81003; 81015; 85025; 87086; 87480; 87510; 87660; 99284; J0696; J1885; J3490

== ENCOUNTER 2024-09-20 16:27 | Outpatient (REF) | payer MEDICAID, SELFPAY ==
--- OUTSIDE RECORDS SUMMARY | 2024-09-20 16:37 | XMS_ITS | Continuity of Care Document ---
Author Organization [facility] Ambulatory Clinics Address [address] [place] [address] Care Team Providers Care Relay Assembler Name Role Phone IARAM SALAZAR-BCRICARDO Primary Care Physic odette Encounter [facility]CT FIN NBR [id number] Date(s): 08/27/24 - 08/27/24 [facility] Ambulatory Clinics [address] [place], [place] [address] Encounter Diagnosis IUD check up(Discharge Diagnosis) - 08/27/24 Discharge Disposition: Home or Self Care Attending Physician: Ihsan Menard MD Allergies, Adverse Reactions, Alerts Substance Criticality Severity Reaction Reaction Severity Status Latex 1 Unable to assess criticality Unknown Rash Active 1Latex gloves: reaction - rash. Assessment and Plan Extracted from: Title:Office Visit Note Author:Ihsan Menard MD D ate:08/27/24 1.??IUD check up??Z30.431 ??IUD check today. ??Strings were not visualized on pelvic exam but the IUD was visualized??to be in good position on ultrasound.?? Advised that??no intervention is needed.?? IUD may remain in place as long as 8 years. ??Follow-up as needed or for routine well woman care. Medications Advil 200 mg oral tablet 400 mg = 2 tab, Oral, every 4 hr, PRN as needed for pain, # 120 tab, 0 Refill(s) Start Date: 10/30/22 Status: Ordered Effexor XR 150 mg oral capsule, extended release 150 mg = 1 cap, Oral, every morning, in addition to 37.5mg cap = 187.5 mg Start Date: 10/30/22 Status: Ordered Effexor XR 37.5 mg oral capsule, extended release 37.5 mg = 1 cap, Oral, every morning, in addition to 150mg cap = 187.5 mg Start Date: 10/30/22 Status: Ordered metroNIDAZOLE 500 mg oral tablet 500 mg = 1 tab, Oral, BID, # 8 tab, 0 Refill(s) Start Date: 11/01/22 Stop Date: 11/05/22 Status: Ordered Mirena 0 Refill(s) Start Date: 10/03/22 Status: Ordered multivitamin adult, oral tablet 1 tab, Oral, Daily, # 90 tab, 0 Refill(s) Start Date: 10/30/22 Status: Ordered Suboxone 2 mg-0.5 mg sublingual film 1 film, SL, TID, PRN withdrawal symptoms, typically takes at least every morning Start Date: 10/29/22 Status: Ordered Tylenol Extra Strength 500 mg oral tablet 1,000 mg = 2 tab, Oral, every 6 hr, PRN as needed for pain, 0 Refill(s) Start Date: 10/30/22 Status: Ordered Problem List Condition Confirmation Course Effective Dates Status H ealth Status Informant Carpal tunnel syndrome Confirmed Active Fibromyalgia Confirmed Active Ankle Fracture Confirmed Active History of TMJ disorder Confirmed Active IUD check up Confirmed Active Migraines Confirmed Active Women's annual routine gynecological examination Confirmed Active Encounter for IUD insertion Confirmed Active Procedures Procedure Date Related Diagnosis Body Site Status Surgery 2021 Completed Removal of gallbladder 2017 Co mpleted Carpal tunnel syndrome Co mpleted 1Ankle Fracture Vital Signs Most recent to oldest [Reference Range]: 1 Blood Pressure [90-120/60-80 mmHg] 122/8 6mmHg *HI* (08/27/24 9:41 AM) Mean Arterial Pressure, Cuff [65-140 mmH g] 98 mmHg (08/27/24 9:41 AM) Weight 141.2 kg (08/27/24 9:41 AM) Weight Measured (lbs) 311.292 lb (08/27/24 9:41 AM) Weight Dosing 141.200 kg (08/27/24 9:41 AM) Social History Social History Type Response Smoking Status Smoking tobacco use: Former tobacco user;Never entered on: 06/22/24 Sex Sex Representation Female (finding) Note * Amy De La Rosa: PERFORM Event Display: Pathology Narrative Note Authored Date: [id number] Physician Outpatient Note * Ihsan Menard MD: PERFORM Event Display: Office Clinic Note Physician Authored Date: [id number] XIOMARA GUADALUPE :1995 Age:29 years Sex:Female Visit Date:08/27/2024 Primary Care Physician: RICARDO MURILLO Chief Complaint 6 week FU. Mirena IUD insert 06/22/2024. Pap 06/22/2024: NILM, HPV Aptima Neg. Cracy bleeding couple days after, stopped now. seeere pain, cervix falling out, pants, ctx diane, come and go. Additional Information Diabetes, heart isses. ?? uncle mom's side - quad History of Present Illness 29 year old presents today for string check. She had a Mirena IUD exchanged last visit.?She reports having had several days of heavy bleeding??and cramping following??the exchange but is fine now.?? She had no problems or concerns. Review of Systems As per HPI Physical Exam Vitals & Measurements BP:??122/86?? WT:??141.2??kg?? A speculum examination was performed. ??I was unable to visualize the IUD strings at the external os. ?? I did perform a transvaginal ultrasound??which did demonstrate the IUD in adequate position within the endometrial cavity. Assessment/Plan 1.??IUD check up??Z30.431 ??IUD check today. ??Strings were not visualized on pelvic exam but the IUD was visualized??to be in good position on ultrasound.?? Advised that??no intervention is needed.?? IUD may remain in place as long as 8 years. ??Follow- up as needed or for routine well woman care. Problem List/Past Medical History Ongoing Ankle Fracture Carpal tunnel syndrome Encounter for IUD insertion Fibromyalgia History of TMJ disorder IUD check up Migraines Women's annual routine gynecological examination Historical Procedure/Surgical History ???Surgery (2021)???Removal of gallbladder (2017)???Carpal tunnel syndrome Medications Advil 200 mg oral tablet, 400 mg= 2 tab, Oral, every 4 hr, PRN Effexor XR 150 mg oral capsule, extended release, 150 mg= 1 cap, Oral, every morning Effexor XR 37.5 mg oral capsule, extended release, 37.5 mg= 1 cap, Oral, every morning metroNIDAZOLE 500 mg oral tablet, 500 mg= 1 tab, Oral, BID Mirena multivitamin adult, oral tablet, 1 tab, Oral, Daily Suboxone 2 mg-0.5 mg sublingual film, 1 film, Sublingual, TID, PRN Tylenol Extra Strength 500 mg oral tablet, 1000 mg= 2 tab, Oral, every 6 hr, PRN Allergies Latex??(Rash) Social History Alcohol Current, Beer- Comments: Socially. Electronic Cigarette/Vaping Electronic Cigarette Use: Use, within last 90 days. Type: Nicotine infused. Employment/School Unemployed, Work/School description: In between jobs.. Home/Environment Lives with Mother. Living situation: Home/Independent. Sexual Sexually active: Yes. Substance Use Past Tobacco Former tobacco user Tobacco Use:. Never Smokeless Tobacco use:. Family History Alive and well: Sister, Brother, Daughter and Son. Heart disease: Grandfather (P). Electronically Signed on 08/27/2024 10:05 EST Ihsan Menard MD Patient Care team information Care Team Personnel Name: RICARDO MURILLO Position: No Access Member Role: Primary Care Physician Address: [facility] [address] [facility] [address] Care Team Related Persons Name: RABIA WILLIAMSON Name: LUIS CHOU Insurance Providers Guarantor name: XIOMARA GUADALUPE Health Plan Information #: 1 Payer: [place]ICA[place] Member Number: [id number] Policy Number: NA Health Plan Information #: 2 Payer: [place]ICAID [place] Member Number: [id number] Policy Number: NA
--- OUTSIDE RECORDS SUMMARY | 2024-09-20 16:37 | XMS_ITS | Encounter Summary ---
Author Organization [facility] Address [address] [place] [address] Care Team Providers Care Eligibility Worker Name Role Phone Unknown, Provider Primary Care Provider Unava ilable Encounter Details Date Type Department Care Team (Late st Contact Info) Description 05/06/2019 Results Only [facility] [phone] Rima Waite MD [address] [place] [phone] Social History Tobacco Use Types Packs/Day Years Used Date Smoking Tobacco: Never Assessed Comments Unknown Sex and Gender Information Value Date Recorded Sex Assigned at Not on file Legal Sex Female 0:21 EDT Gender Identity Not on file Sexual Orientation Not on file documented as of this encounter Plan of Treatment Not on file documented as of this encounter Procedures Procedure Name Priority Date/Time Associated Diagnosis Comments SURGICAL PATHOLOGY Routine 05/06/2019 8:44 EDT documented in this encounter Results * SURGICAL PATHOLOGY (05/06/2019 8:44 EDT) Pathology Report: SURGICAL PATHOLOGY REPORT Reports generated via electronic interface contain original data; however they are lacking the format of the original report. Caution should be taken when reading/interpret ing unformatted reports. Name: ? LOIS GUADALUPE ? Accession #: ? [id number] ? : ? 1995 (Age: 24) ??F ? Collect Date: ? 05/06/2019 ? Location: ? [facility] ? Receive Date: ? 05/06/2019 ? Provider: RIMA WAITE MD Copy to: FIDEL BOSS PAC ? Final Pathologic Diagnosis: GALLBLADDER, CHOLECYSTECTOMY: - ??Mild chronic cholecystitis. - ??Cholelithiasis. Document reviewed and electronically signed by: GONZALO SINGH MD Report ??Date: 05/11/2019 17:41 By the signature above, the attending physician certifies that he/she has personally conducted a gross and/or microscopic examination of the described specimens and rendered or confirmed the above diagnosis. Specimen(s) Received: Gallbladder Clinical History: Symptomatic cholelithiasis; clinical diagnosis code: ??N80.20 Gross Description: ? Received in formalin labelled with proper patient identification (initials M, A) and gallbladder is an intact gallbladder (9.2 x 2.4 x 2.4 cm). The cystic duct margin is inked. ? The serosa is dark purple and hyperemic. The mucosa is bile-stained green soft and velvety with an average wall thickness of 0.2 cm. The cystic duct lumen is patent. Within the cavity is a single yellow-green bosselated gallstone (1.5 cm in greatest dimension). The cystic duct margin, en face, and two hr representative sections are submitted in 1. SATISH Jones (ASCP) 05/07/2019 10:50 AM End of Report [facility] 05/06/2019 8:44 EDT 05/06/2019 8:44 EDT us Rima Waite MD PATHOLOGY ORDERABLES Final Result [facility] [address] [place] [address] documented in this encounter Visit Diagnoses Not on filedocumented in this encounter Care Teams Eligibility Worker Relationship Specialty Start Date End Date Unknown, Provider, PCP - General 05/07/19 documented as of this encounter
--- OUTSIDE RECORDS SUMMARY | 2024-09-20 16:37 | XMS_ITS | Referral Summary ---
Author Organization [facility] Address [address] [place] [address] Care Team Providers Care Assembler Faucets Name Role Phone Unknown, Provider Primary Care Provider Unava ilable Social History Tobacco Use Types Packs/Day Years Used Date Smoking Tobacco: Never Assessed Interpersonal Safety Answer Date Record ed Physically Hurt Never 04/17/2020 Verbally Threaten Not on file 04/17/2020 Comments Unknown Sex and Gender Information Value Date Recorded Sex Assigned at Not on file Legal Sex Female 0:21 EDT Gender Identity Not on file Sexual Orientation Not on file Plan of Treatment Not on file Procedures Procedure Name Priority Date/Time Associated Diagnosis Comments HEPATITIS C AB W REFLEX TO HCV RNA BY PCR Routine 04/26/2022 13:47 EDT from Last 3 Months or Most Recently Relevant to Health Maintenance Results * HEPATITIS C AB W REFLEX TO HCV RNA BY PCR (04/26/2022 13:47 EDT) Hep C Antibody Negative Negative 04/29/2022 11:39 EDT [facility] Blood VENOUS BLOOD / Unknown 04/26/2022 13:47 EDT 04/28/2022 16:45 EDT us Provider Outr Resulting Lab CHEMISTRY & BLOOD GA S ORDERABLES Final Result [facility] [address] [place] [address] from Last 3 Months or Most Recently Relevant to Health Maintenance Insurance MEDICAID [place] Care Teams Assembler Faucets Relationship Specialty Start Date End Date Unknown, Provider, PCP - General 05/07/19
--- OUTSIDE RECORDS SUMMARY | 2024-09-20 16:37 | XMS_ITS | Clinical Summary ---
Author Organization [facility] Address [address] [place] [address] Care Team Providers Care Carpenter Wooden Tank Erecting Name Role Phone Unknown, Provider Primary Care [...] Orientation Not on file Plan of Treatment Health Maintenance Due Date Last Done Comments Hepatitis B Vaccine (1 of 3 - 19+ 3-dose series) 05/05 COVID-19 Vaccine ( season) 2024 Hepatitis C Screen Completed 04/26/2022 Procedures Procedure Name Priority Date/Time Associated Diagnosis Comments HEPATITIS C AB W REFLEX TO HCV RNA BY PCR Routine 04/26/2022 13:47 EDT from Last 3 Months or Most Recently Relevant to Health Maintenance Results * HEPATITIS C AB W REFLEX TO HCV RNA BY PCR (04/26/2022 13:47 EDT) Hep C Antibody Negative Negative 04/29/2022 11:[address] [facility] Blood VENOUS BLOOD / Unknown 04/26/2022 13:47 EDT 04/28/2022 16:45 EDT us Provider Outr Resulting Lab CHEMISTRY & BLOOD GA S ORDERABLES Final Result [facility] [address] [place] [address] from Last 3 Months or Most Recently Relevant to Health Maintenance Insurance MEDICAID [place] Care Teams Carpenter Wooden Tank Erecting Relationship Specialty Start Date End Date Unknown, Provider, PCP - General 05/07/19
--- OUTSIDE RECORDS SUMMARY | 2024-09-20 16:37 | XMS_ITS | Continuity of Care Document ---
Author Organization [facility] Address [address] [place] [address] Care Team Providers Care Bee Breeder Name Role Phone [employer] INTER[employer]ARDO RENDON Primary Care Physic odette Encounter [facility] [id number] Date(s): 06/22/24 - 06/22/24 [facility] [address] [place], [place] [address] Encounter Diagnosis Women's annual routine gynecological examination(Discharge Diagnosis) - 06/22/24 Encounter for IUD insertion(Discharge Diagnosis) - 06/22/24 Screening for cervical cancer(Discharge Diagnosis) - 06/22/24 Discharge Disposition: Home or Self Care Attending Physician: Ihsan Menard MD Allergies, Adverse Reactions, Alerts Substance Criticality Severity Reaction Reaction Severity Status Latex 1 Unable to assess criticality Unknown Rash Active 1Latex gloves: reaction - rash. Assessment and Plan Extracted from: Title:Office Visit Note Author:Ihsan Menard MD D ate:06/22/24 1.??Women's annual routine g ynecological examination??Z01.419 ??Essentially normal exam.?? Pap smear was collected. 2.??Encounter for IUD insertion??Z30.430 ??We discussed contraceptive options.?I did high school counselor her that??cycle control is typically not great with Nexplanon although??his contraceptive effect is good.?? I could not guarantee amenorrhea with??the Nexplanon??as she has had with the??Mirena.?? In terms of her acne??she does have a follow-up appointment with her PCP.?We did elect to place another??Mirena IUD today.?? Recommend follow-up in 6 weeks for string check. Future Appointments Medications Advil 200 mg oral tablet 400 [...] Active History of TMJ disorder Confirmed Active Migraines Confirmed Active Women's annual routine gynecological examination Confirmed Active Encounter for IUD insertion Confirmed Active Procedures Procedure Date Related Diagnosis Body Site Status Surgery 2021 Completed Removal of gallbladder 2017 Co mpleted Carpal tunnel syndrome Co mpleted 1Ankle Fracture Vital Signs Most recent to oldest [Reference Range]: 1 Blood Pressure [90-120/60-80 mmHg] 122/7 4mmHg *HI* (06/22/24 1:06 PM) Mean Arterial Pressure, Cuff [65-140 mmH g] 90 mmHg (06/22/24 1:06 PM) Weight 141.2 kg (06/22/24 1:06 PM) Weight Measured (lbs) 311.292 lb (06/22/24 1:06 PM) Weight Dosing 141.200 kg (06/22/24 1:06 PM) Social History Social History Type Response Smoking Status Smoking tobacco use: Former tobacco user;Never entered on: 06/22/24 Sex Sex Representation Female (finding) Physician Outpatient Note * Ihsan Menard MD: PERFORM Event Display: Office Clinic Note Physician Authored Date: [id number] XIOMARA GUADALUPE :1995 Age:29 years Sex:Female Visit Date:06/22/2024 Primary Care Physician: RICARDO MURILLO Chief Complaint IUD removal. Per patient she stated she has a deep cervix - will need long speculum. Leaning towards getting a Nexplanon. History of Present Illness 29 year old presents for annual exam and for IUD.?She currently has a Mirena IUD which was placed 8 years ago after the of her last child.?? Last Pap smear was also about the same time.?? She is generally healthy.?? She has not had??a menses??since placement of the IUD but she has had somedifficulty with acne??that she is concerned is exacerbated by??the IUD itself.?? She is interested in potentially??utilizing Nexplanon. ?? OB history: x 2 She did have a mammogram??2 years ago??for breast lump which??returned benign??findings. Review of Systems Constitutional:?No??fevers,?No??chills,?No??sweats Eye:?No??recent visual problems ENT:?No??ear pain,?No??nasal congestion,?No??sore throat Respiratory:?No??shortness of breath,?No??cough Cardiovascular:?No??Chest pain,?No??palpitations,?No??syncope Gastrointestinal:?Nonausea,?No??vomiting,?No??diarrhea Genitourinary:?No??hematuria Felix/Lymph:?No??bruising tendency,?No??swollen lymph glands Endocrine:?No??excessive thirst,??No??excessive hunger Musculoskeletal:??No??back pain,??No??neck pain,??No??joint pain,??No??muscle pain,??No??decreased range of motion Integumentary:?No??rash,?No??pruritus,?No??abrasions Neurologic: Alert & oriented X 4 Psychiatric:?No??anxiety,?No??depression Physical Exam Vitals & Measurements BP:??122/74?? WT:??141.2??kg?? General:??Alert and oriented, well nourished, no acute distress. Skin:??Skin is warm, dry and pink, no rashes or lesions. HEENT:??Normocephalic, ,normal hearing, moist oral mucosa. Neck:??Supple, non-tender, no thyromegaly, no lymphadenopathy Breasts:??Normal, no palpable masses, no skin changes, no axillary lymphadenopathy. Lungs:??Clear to auscultation bilaterally. Heart:??Regular rate and rhythm. Abdomen:??Soft. Nontender. No palpable masses or organomegaly. External Genitalia:??Normal external genitalia. Vagina:??Normal vaginal mucosa, no abnormal discharge.Cervix grossly normal. Pap smear was collected.?? Bimanual:??Uterus is midline mobile and nontender. Adnexa palpate normally.?? Musculoskeletal:??Normal range of motion and strength, no tenderness or edema. Neurologic:??Awake, alert and oriented x 3, no gross focal neurological deficits Psychiatric:??Cooperative, appropriate mood and affect. Procedure ?? Procedure (Mirena IUD removal and??insertion) ?? A speculum was placed in the vagina with good visualization of the cervix. The cervix was prepped with Betadine solution. A paracervical block with 10 cc of 1% plain lidocaine solution was instilled.??The IUD strings were easily visualized and the original IUD was removed easily. ??The anterior lip of the cervix was grasped with a single-tooth tenaculum. The??new Mirena IUD was passed easily and deployed. Strings were cut to the appropriate length. All instrumentation was removed. The procedure was tolerated well. Assessment/Plan 1.??Women's annual routine gynecological examination??Z01.419 ??Essentially normal exam.?? Pap smear was collected. 2.??Encounter for IUD insertion??Z30.430 ??We discussed contraceptive options.?I did high school counselor her that??cycle control is typically not great with Nexplanon although??his contraceptive effect is good.?? I could not guarantee amenorrhea with??the Nexplanon??as she has had with the??Mirena.?? In terms of her acne??she does have a follow-upappointment with her PCP.?We did elect to place another??Mirena IUD today.?? Recommend follow-upin 6 weeks for string check. Problem List/Past Medical History Ongoing Ankle Fracture Carpal tunnel syndrome Encounter for IUD insertion Fibromyalgia History of TMJ disorder Migraines Women's annual routine gynecological examination Historical [...] Heart disease: Grandfather (P). Electronically Signed on 06/22/2024 13:50 EDT Ihsan Menard MD Patient Care team information Care Team Personnel Name: RICARDO MURILLO Position: No Access Member Role: Primary Care Physician Address: [address] [place] [address]- Care Team Related Persons Name: LUIS CHOU Insurance Providers Guarantor name: XIOMARA GUADALUPE Health Plan Information #: 1 Payer: [place] Member Number: [id number] Policy Number: NA Health Plan Information #: 2 Payer: [place] Member Number: [id number] Policy Number: NA
--- OUTSIDE RECORDS SUMMARY | 2024-09-20 16:37 | XMS_ITS | Encounter Summary ---
Author Organization [facility] Address [address] [place] [address] Care Team Providers Care Logistics Team Leader Name Role Phone Unknown, Provider Primary Care Provider Pati ilila Encounter Details Date Type Department Care Team (Late st Contact Info) Description 09/30/2022 Lab Requisition [facility] Pathology & Laboratory Medicine - [facility] [address] [place], [place] [id number] Outr Resulting Lab, Provider Social History Tobacco Use Types Packs/Day Years [...] Procedure Name Priority Date/Time Associated Diagnosis Comments CHLAMYDIA/N. GONORRHOEAE AMPLIFIED NUCLEIC ACID Routine 09/30/2022 19:30 EST documented in this encounter Results * CHLAMYDIA/N. GONORRHOEAE AMPLIFIED RNA (09/30/2022 19:30 EST) Neisseria gonorrhoeae Result Negative Negative 10/02/2022 13:09 EST [facility] Chlamydia trachomatis Result Negative Negative 10/02/2022 13:09 EST [facility] Swab ENTIRE VAGINA / Unknown 09/30/2022 19:30 EST 10/01/2022 20:24 EST us Provider Outr Resulting Lab MICROBIOLOGY - GENER AL ORDERABLES Final Result [facility] [address] [place] [address] documented in this encounter Visit Diagnoses Not on filedocumented in this encounter Care Teams Logistics Team Leader Relationship Specialty Start Date End Date Unknown, Provider, PCP - General 05/07/19 documented as of this encounter
--- OUTSIDE RECORDS SUMMARY | 2024-09-20 16:37 | XMS_ITS | Encounter Summary ---
Author Organization [facility] Address [address] [place] [address] Care Team Providers Care Adult Care Provider Name Role Phone Unknown, Provider Primary Care Provider Unahermann ilable Encounter Details Date Type Department Care Team (Late st Contact Info) Description 04/27/2022 Lab Requisition [facility] Pathology & Laboratory Medicine - [facility] [address] [place], [place] [id number] Outr Resulting Lab, Provider Social History Tobacco [...] RNA BY PCR Routine 04/26/2022 13:47 EDT documented in this encounter Results * HEPATITIS C AB W REFLEX TO HCV RNA BY PCR (04/26/2022 13:47 EDT) Hep C Antibody Negative Negative 04/29/2022 11:39 EDT [facility] Blood VENOUS BLOOD / Unknown 04/26/2022 13:47 EDT 04/28/2022 16:45 EDT us Provider Outr Resulting Lab CHEMISTRY & BLOOD GA S ORDERABLES Final Result [facility] [address] [place] [address] documented in this encounter Visit Diagnoses Not on filedocumented in this encounter Care Teams Adult Care Provider Relationship Specialty Start Date End Date Unknown, Provider, PCP - General 05/07/19 documented as of this encounter
--- OUTSIDE RECORDS SUMMARY | 2024-09-20 16:37 | XMS_ITS | Encounter Summary ---
Author Organization [facility] Address [address] [place] [address] Care Team Providers Care Motorcycle Tester Name Role Phone Unavailable Primary Care Provider Unavailabl e Encounter Details Date Type Department Care Team (Latest Contact Info) Description 05/06/2019 13:24 EDT - 05/06/2019 23:59 EDT Hospital Encounter [facility] [place] [address] [place] [address] Unknown, Provider, MD Discharge Disposition: Auto Discharge Social History Tobacco Use Types Packs/Day Years Used Date Smoking Tobacco: Never Assessed Comments Unknown Sex and Gender Information Value Date Recorded Sex Assigned at Not on file Legal Sex Female 0:21 EDT Gender Identity Not on file Sexual Orientation Not on file documented as of this encounter Discharge Disposition Disposition Code Departure Means Destination Auto Discharge Home documented in this encounter Plan of Treatment Not on file documented as of this encounter Visit Diagnoses Not on filedocumented in this encounter
--- OUTSIDE RECORDS SUMMARY | 2024-09-20 16:37 | XMS_ITS | Data Portability ---
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 abuse 69 4039105 F15.10 unstable Goals Section Goal Description Status Start Date LastModified by Organization Details LastModified Time Patient demonstrates improved behaviors to maintain health None Recorded Goal not achieved Elsy Morgan Information not available 12/12/2022 20:10:19 Health Concerns Section Related Observation LastModified by Organization Detai ls LastModified Time None Recorded Concern Status LastModified by Organization Details LastModified Time opioid dependence Active [facility] PATCH Not Availa ble 05/21/2023 09:17:01 Advance Directives Directive None Recorded Payers Encounter Date Sequence Insurance Name Policy Number Policy Moran Covered Member ID Moran Member ID Guarantor Name 09/19/2022 1 [employer] (MEDICAID) Lois M Carlos [id number] Lois Carlos 09/26/2022 1 [employer] ([employer]ICA[employer]) Lois M Carlos [id number] Lois Carlos 11/11/2022 1 [employer] ([employer]ICAID) Lois M Carlos [id number] Lois Carlos 12/12/2022 1 [employer] ([employer]ICAID) Lois M Carlos [id number] Lois Carlos 12/26/2022 1 [employer] (MEDICAID) Lois M Carlos [id number] Lois Carlos Notes Date Note Type Note Provider Name and Address Organization Details Recorded Time 09/19/2022 text/html This patient is here today for their follow-up MAT visit. They are being treated for OUD with buprenorphine. PLEASE SEE A & P SECTION FOR FULL VISIT NOTE Sarah Beth Clements NP [address] [place], [address], [facility] [employer] 09/19/2022 12:26:53 09/26/2022 text/html This patient is here today for their follow-up MAT visit. They are being treated for OUD with buprenorphine. PLEASE SEE A & P SECTION FOR FULL VISIT NOTE Sarah Beth Clements NP [address] [place] [address], [phone], [facility] 09/26/2022 12:15:07 11/11/2022 text/html This patient is here for their Re-Initial visit. They are seeking treatment for{{OUD* AUD OU D and AUD}}with{{bupre norphine* naltre xone/Vivitrol Ot her medication:}} Patient was last seen on{{DATE 023}} PLEASE SEE A & P SECTION FOR FULL VISIT NOTE Sarah Beth Clements NP [address] [place], [address], [facility] 11/11/2022 14:49:45 12/12/2022 text/html This patient is here for their Re-Initial visit. They are seeking treatment for{{OUD* AUD OU D and AUD}}with{{bupre norphine* naltre xone/Vivitrol Ot her medication:}}Anjali kasper was last seen on{{DATE 023}} PLEASE SEE A & P SECTION FOR FULL VISIT NOTE This patient is here today for their follow-up MAT visit. They are being treated for OUD with buprenorphine. PLEASE SEE A & P SECTION FOR FULL VISIT NOTE Sarah Beth Clements NP [address] [place] [address], [phone], [facility] 12/12/2022 16:19:25 12/26/2022 text/html This patient is here today for their follow-up MAT visit. They are being treated for OUD with buprenorphine. PLEASE SEE A & P SECTION FOR FULL VISIT NOTE This patient is here for their Re-Initial visit. They are seeking treatment for{{OUD* AUD OU D and AUD}}with{{bupre norphine* naltre xone/Vivitrol Ot her medication:}}Pat ient was last seen on{{DATE 023}} PLEASE SEE A & P SECTION FOR FULL VISIT NOTE This patient is here today for their follow-up MAT visit. They are being treated for OUD with buprenorphine. PLEASE SEE A & P SECTION FOR FULL VISIT NOTE Sarah Beth Clements NP [address] [place], [address], [facility] 12/26/2022 14:23:42 OBGyn Episode No OBEpisode recorded.
--- OUTSIDE RECORDS SUMMARY | 2024-09-20 16:37 | XMS_ITS | Continuity of Care Document ---
Author Organization [facility] Address [address] [place] [id number] Care Team Providers Care Shower Screen Installer Name Role Phone RICARDO MINOR Primary Care Physician [phone] Encounter TL_NM FIN NBR [id number] Date(s): 10/29/22 - 11/01/[address] [id number] Encounter Diagnosis Suicidal ideation(Discharge Diagnosis) - 10/29/22 Opioid abuse(Discharge Diagnosis) - 10/29/22 Substance abuse(Discharge Diagnosis) - 10/29/22 Vaginosis(Discharge Diagnosis) - 10/29/22 Discharge Disposition: Discharge/Transfer - Other Type of Inst Attending Physician: Jasbir Méndez MD Admitting Physician: aJsbir Méndez MD Allergies, Adverse Reactions, Alerts Substance Reaction Severity Status Latex 1 Rash Unknown Active 1Latex gloves: reaction - rash. Functional Status 11/01/22 Activity Status ADL Other: resting 11/01/22 Personal Care Provided Other: offered ad l supplies, pt declined stating she prefers to shower in the evening. 10/31/22 Breakfast Percent 100 10/30/22 Dinner Percent 75 10/30/22 Lunch Percent 100 10/29/22 Living Environment No Living Environmen t Information Available Lives With Child(zeeshan) 10/29/22 Recent Travel History No recent travel Other exposure to Infectious Disease Non e 10/29/22 ADLs Independent Medications Advil 200 mg oral tablet 400 [...] 0 Refill(s) Start Date: 10/30/22 Status: Ordered Mental Status 10/31/22 Eye Opening Response Dariela Spontaneous ly Best Verbal Response Dariela Oriented Best Motor Response Dariela Obeys comman ds Dariela Coma Score 15 Problem List Condition Confirmation Course Effective Dates Status Health St atus Informant History of TMJ disorder Confirmed Active Migraines Confirmed Active Results Laboratory List Name Date Urinalysis Microscopic 11/01/22 Urinalysis with Microscopic if Indicated 11/01/22 SARS-CoV-2 (COVID-19) PCR (GeneXpert) Drug Screen Urine 10/29/22 Test Urine Qual 10/29/22 SARS-CoV-2 (COVID-19) PCR (GeneXpert) Chlamydia trachomatis and Neisseria gono rrhoeae (GeneXpert) 10/29/22 Vaginitis Panel DNA Probe (BD Affirm) Alcohol Lvl 10/29/22 CBC w/ Diff 10/29/22 Comprehensive Metabolic Panel (CMP) 10/29 TSH w/ Rflx to Free T4 10/29/22 Automated Diff 10/29/22 Most recent to oldest [Reference Range]: 1 2 WBC [4.8-10.8 K/mcL] 7.4 K/mcL (10/29/22 12:42 PM) RBC [4.20-6.10 Million/mcL] 4.64 Million /mcL (10/29/22 12:42 PM) Neutro Auto [42.2-75.2 %] 59.4 % (10/29/22 12:42 PM) Lymph Auto [20.5-51.1 %] 28.6 % (10/29/22 12:42 PM) Sampson Auto [1.7-9.3 %] 9.5 % *HI* (10/29/22 12:42 PM) Basophil Auto [0.0-0.8 %] 0.7 % (10/29/22 12:42 PM) BUN [8-26 mg/dL] 12 mg/dL (10/29/22 12:42 PM) U Amph Scrn [Negative] Negative (10/29/22 1:54 PM) UA Color [Yellow] Yellow (11/01/22 11:02 AM) UA WBC [0-3] 0-3 (11/01/22 11:02 AM) Glucose Level [74-106 mg/dL] 107 mg/dL *HI* (10/29/22 12:42 PM) Potassium Level [3.5-5.1 mmol/L] 3.5 mmo l/L (10/29/22 12:42 PM) Baso Absolute [0.0-0.2 K/mcL] 0.0 K/mcL (10/29/22 12:42 PM) U Benzodia Scrn [Negative] Negative (10/29/22 1:54 PM) MCV [80.0-99.0 fL] 90.5 fL (10/29/22 12:42 PM) UA Urobilinogen [0.2] 1.0 *ABN* (11/01/22 11:02 AM) UA Bili [Negative] Negative (11/01/22 11:02 AM) UA Ketones [Negative] Negative (11/01/22 11:02 AM) AST [15-41 IntlUnit/L] 54 IntlUnit/L *HI* (10/29/22 12:42 PM) ALT [14-54 IntlUnit/L] 64 IntlUnit/L *HI* (10/29/22 12:42 PM) MCHC [32.0-36.0 g/dL] 33.6 g/dL (10/29/22 12:42 PM) Osmolality [275-295 mOsm/kg] 268 mOsm/kg *LOW* (10/29/22 12:42 PM) Sodium Level [134-143 mmol/L] 134 mmol/L (10/29/22 12:42 PM) UA RBC [0-3] 4-6 *ABN* (11/01/22 11:02 AM) UA Leuk Est [Negative] Negative (11/01/22 11:02 AM) Lymph Absolute [1.2-3.4 K/mcL] 2.1 K/mcL (10/29/22 12:42 PM) UA Nitrite [Negative] Negative (11/01/22 11:02 AM) UA Glucose [Negative] Negative (11/01/22 11:02 AM) Hct [37.0-52.0 %] 42.0 % (10/29/22 12:42 PM) U Cocaine Scrn [Negative] Positive *ABN* (10/29/22 1:54 PM) Calcium Level [8.9-10.3 mg/dL] 9.3 mg/dL (10/29/22 12:42 PM) Sampson Absolute [0.1-0.6 K/mcL] 0.7 K/mcL *HI* (10/29/22 12:42 PM) Albumin Level [3.5-5.0 g/dL] 4.2 g/dL (10/29/22 12:42 PM) Protein Total [6.5-8.1 g/dL] 7.8 g/dL (10/29/22 12:42 PM) UA Protein [Negative] Negative (11/01/22 11:02 AM) MCH [27.0-31.0 pg] 30.4 pg (10/29/22 12:42 PM) Neutro Absolute [1.4-6.5 K/mcL] 4.4 K/mc L (10/29/22 12:42 PM) Bilirubin Total [0.2-1.2 mg/dL] 1.1 mg/d L (10/29/22 12:42 PM) Hgb [12.0-18.0 g/dL] 14.1 g/dL (10/29/22 12:42 PM) Alk Phos [38-130 IntlUnit/L] 99 IntlUnit /L (10/29/22 12:42 PM) UA Blood [Negative] Large *ABN* (11/01/22 11:02 AM) MPV [7.4-10.4 fL] 9.7 fL (10/29/22 12:42 PM) Ethanol Level [0.00-0.08 g/dL] <0.00 g/d L (10/29/22 12:42 PM) UA Spec Grav 1.020 *NA* (11/01/22 11:02 AM) Platelets [130-400 K/mcL] 294 K/mcL (10/29/22 12:42 PM) CO2 [22-32 mmol/L] 25 mmol/L (10/29/22 12:42 PM) Eos Absolute [0.0-0.2 K/mcL] 0.1 K/mcL (10/29/22 12:42 PM) U Verónica Scrn [Negative] Negative (10/29/22 1:54 PM) UA Squam Epithelial [0-3] 6-10 *ABN* (11/01/22 11:02 AM) TSH [0.45-5.33 mIntlUnit/mL] 1.29 mIntlU nit/mL (10/29/22 12:42 PM) UA pH 6.50 *NA* (11/01/22 11:02 AM) U Opiate Scrn [Negative] Negative (10/29/22 1:54 PM) UA Appear [Clear] Clear (11/01/22 11:02 AM) Chloride Level [98-111 mmol/L] 99 mmol/L (10/29/22 12:42 PM) U Oxy Scrn [Negative] Negative (10/29/22 1:54 PM) U PCP Scrn [Negative] Negative (10/29/22 1:54 PM) RDW-CV [11.5-14.5 %] 12.5 % (10/29/22 12:42 PM) A/G Ratio 1.2 *NA* (10/29/22 12:42 PM) BUN/Creat Ratio [8.0-20.0] 14.1 (2/14/23 12:42 PM) Globulin 3.6 *NA* (10/29/22 12:42 PM) U THC Scr [Negative] Negative (10/29/22 1:54 PM) U PPX Scr [Negative] Negative (10/29/22 1:54 PM) U Methadone Scr [Negative] Negative (10/29/22 1:54 PM) Trichomonas-BD Affirm [Negative] Negativ e (10/29/22 12:46 PM) Gardnerella-BD Affirm [Negative] Positiv e *ABN* (10/29/22 12:46 PM) Imm Gran Absolute 0.02 *NA* (10/29/22 12:42 PM) Imm Gran Auto [0.0-0.5 %] 0.3 % (10/29/22 12:42 PM) Merry Species -BD Affirm [Negative] Ne gative (10/29/22 12:46 PM) UA Culture Ind?. [No] No (11/01/22 11:02 AM) Urine Srce Clean Catch (11/01/22 11:02 AM) U Buprenorph Scr [Negative] Positive *ABN* (10/29/22 1:54 PM) U mAMP Scr [Negative] Negative (10/29/22 1:54 PM) U TCA Scr [Negative] Negative (10/29/22 1:54 PM) Chlamydia trachomatis DNA -G eneXpert [Not Detected] Not Detected (10/29/22 12:46 PM) Neisseria gonorrhoeae DNA -G eneXpert [Not Detected] Not Detected (10/29/22 12:46 PM) SARS-CoV-2 (COVID-19) PCR (G eneXpert) [Negative] Negative (11/01/22 8:49 AM) Negative (10/29/22 1:54 PM) Creatinine Level [0.44-1.00 mg/dL] 0.85 mg/dL (10/29/22 12:42 PM) Employed in healthcare? Unknown *NA* (11/01/22 8:49 AM) No *NA* (10/29/22 1:54 PM) Symptomatic as defined by CDC? No *NA* (11/01/22 8:49 AM) No *NA* (10/29/22 1:54 PM) Hospitalized due to COVID-19? No *NA* (11/01/22 8:49 AM) No *NA* (10/29/22 1:54 PM) In ICU? No *NA* (11/01/22 8:49 AM) No *NA* (10/29/22 1:54 PM) Group care resident? Unknown *NA* (11/01/22 8:49 AM) No *NA* (10/29/22 1:54 PM) status? Unknown *NA* (11/01/22 8:49 AM) Unknown *NA* (10/29/22 1:54 PM) Anion Gap [3.0-12.0] 10.0 (10/29/22 12:42 PM) Eos, Auto [0.00-3.00 %] 1.50 % (10/29/22 12:42 PM) U hCG Ql [Negative] Negative (10/29/22 1:54 PM) Instr Ethanol Lvl [<=5 mg/dL] <5 mg/dL (10/29/22 12:42 PM) eGFR CKD-EPI [>=60 mL/min/1.73 m2] 96 mL /min/1.73 m2 (10/29/22 12:42 PM) Vital Signs Most recent to oldest [Reference Range]: 1 2 3 Temperature Temporal Artery [36-38 Deg C] 36.4 Deg C (11/01/22 9:59 AM) 36.0 Deg C (11/01/22 6:03 AM) 36.5 Deg C (10/31/22 8:13 PM) Temperature Temporal Artery (DegF) [97.3-100 Deg F] 97.52 Deg F (11/01/22 9:59 AM) 96.8 Deg F *LOW* (10/31/22 4:13 PM) 97.16 Deg F *LOW* (10/31/22 4:00 AM) Peripheral Pulse Rate [60-100 bpm] 81 bpm (11/01/22 6:03 AM) 78 bpm (10/31/22 8:13 PM) 70 bpm (10/31/22 4:13 PM) Heart Rate Monitored [60-100 bpm] 69 bpm (11/01/22 9:59 AM) Respiratory Rate [12-24 br/min] 20 br/min (11/01/22 9:59 AM) 16 br/min (11/01/22 6:03 AM) 16 br/min (10/31/22 8:13 PM) Blood Pressure [90-140/60-90 mmHg] 126/56mmHg (11/01/22 9:59 AM) 137/97mmHg (11/01/22 6:03 AM) 137/93mmHg (10/31/22 8:13 PM) Mean Arterial Pressure, Cuff [65-140 mmHg] 79 mmHg (11/01/22 9:59 AM) 110 mmHg (11/01/22 6:03 AM) 108 mmHg (10/31/22 8:13 PM) Mean Arterial Pressure Cuff 102 mmHg (10/30/22 1:36 PM) Blood Pressure Location Left arm (10/31/22 4:00 AM) Right arm (10/30/22 7:00 PM) Right arm (10/30/22 1:36 PM) Blood Pressure Method Automatic (10/31/22 4:00 AM) Automatic (10/30/22 7:00 PM) Automatic (10/30/22 1:36 PM) Weight 108.860 kg (10/29/22 5:57 PM) 108.86 kg (10/29/22 11:59 AM) Weight Dosing 108.860 kg (10/29/22 5:57 PM) 108.86 kg (10/29/22 12:28 PM) Height 170.180 cm (10/29/22 5:57 PM) 170.180 cm (10/29/22 11:59 AM) Height/Length Dosing 170.180 cm (10/29/22 5:57 PM) 170.180 cm (10/29/22 12:28 PM) Body Mass Index 37.590 kg/m2 (10/29/22 5:57 PM) 38.000 kg/m2 (10/29/22 11:59 AM) Social History Social History Type Response Tobacco Current some day tob acco user Tobacco Use:. Sex Hospital Discharge Instructions Patient Education 11/01/2022 10:47:06 Suicidal Feelings: How to Help Yourself Suicidal Feelings: How to Help Yourself Suicide is when you end your own life. There are many things you can do to help yourself feel better when struggling with these feelings. Many services and people are available to support you and others who struggle with similar feelings. If you ever feel like you may hurt yourself or others, or have thoughts about taking your own life,get help right away. To get help: ??? Call your local emergency services (911 in the [place] ??? The [facility] helpline (211 in the [place] ??? Go to your nearest emergency department. ??? Call a suicide hotline to speak with a trained counselor. The following suicide hotlines are available in the [place]: ??? 9-855-712-TALK ( ). ??? 4-122-NPNTTTC ( ). ??? . This is a hotline for Malay speakers. ??? . This is a hotline for TTY users. ??? 8-565-8-U-CHI ( ). This is a hotline for lesbian, breen, bisexual, transgender, or questioning youth. ??? For a list of hotlines in [place], visit www.suicide.org/hotlines/international/wjmrcy-bhcqebh-adtlrhmr.html ??? Contact a crisis center or a local suicide prevention center. To find a crisis center or suicide prevention center: ??? Call your local hospital, clinic, community service organization, mental health center, social service provider, or health department. Ask for help with connecting to a crisis center. ??? For a list of crisis centers in the [place], visit: suicidepreventionlifeline.org ??? For a list of crisis centers in [place], visit: suicideprevention.wa How to help yourself feel better ??? Promise yourself that you will not do anything extreme when you have suicidal feelings. Remember the times you have felt hopeful. Many people have gotten through suicidal thoughts and feelings, and you can too. If you have had these feelings before, remind yourself that you can get through themagain. ??? Let family, friends, teachers, or counselors know how you are feeling. Try not to separate yourself from those who care about you and want to help you. Talk with someone every day, even if you donot feel sociable. Sspu-qd-vuvy conversation is best to help them understand your feelings. ??? Contact a mental health care provider and work with this person regularly. ??? Make a safety plan that you can follow during a crisis. Include phone numbers of suicide prevention hotlines, mental health professionals, and trusted friends and family members you can call during an emergency. Save these numbers on your phone. ??? If you are thinking of taking a lot of medicine, give your medicine to someone who can give it to you as prescribed. If you are on antidepressants and are concerned you will overdose, tell your health care provider so that he or she can give you safer medicines. ??? Try to stick to your routines and follow a schedule every day. Make self- care a priority. ??? Make a list of realistic goals, and cross them off when you achieve them. Accomplishments can give you a sense of worth. ??? Wait until you are feeling better before doing things that you find difficult or unpleasant. ??? Do things that you have always enjoyed to take your mind off your feelings. Try reading a book,or listening to or playing music. Spending time outside, in nature, may help you feel better. Follow these instructions at home: ??? Visit your primary health care provider every year for a checkup. ??? Work with a mental health care provider as needed. ??? Eat a well-balanced diet, and eat regular meals. ??? Get plenty of rest. ??? Exercise if you are able. Just 30 minutes of exercise each day can help you feel better. ??? Take ehxt-jbu-tsbmeyl and prescription medicines only as told by your health care provider. Askyour mental health care provider about the possible side effects of any medicines you are taking. ??? Do not use alcohol or drugs, and remove these substances from your home. ??? Remove weapons, poisons, knives, and other deadly items from your home. General recommendations ??? Keep your living space well lit. ??? When you are feeling well, write yourself a letter with tips and support that you can read whenyou are not feeling well. ??? Remember that life's difficulties can be sorted out with help. Conditions can be treated, and you can learn behaviors and ways of thinking that will help you. Where to find more information ??? National Suicide Prevention Lifeline: www.suicidepreventionlifeline.org ??? Hopeline: www.hopeline.com ??? [place] Foundation for Suicide Prevention: www.afsp.org ??? The Chi Project (for lesbian, breen, bisexual, transgender, or questioning youth): www.the[employer].vorproject.org ??? National Oxford of Mental Health: https://www.nimh.nih.gov/health/topics/suicide-prevention Contact a health care provider if: ??? You feel as though you are a burden to others. ??? You feel agitated, angry, vengeful, or have extreme mood swings. ??? You have withdrawn from family and friends. Get help right away if: ??? You are talking about suicide or wishing to . ??? You start making plans for how to commit suicide. ??? You feel that you have no reason to live. ??? You start making plans for putting your affairs in order, saying goodbye, or giving your possessions away. ??? You feel guilt, shame, or unbearable pain, and it seems like there is no way out. ??? You are frequently using drugs or alcohol. ??? You are engaging in risky behaviors that could lead to . If you have any of these symptoms, get help right away. Call emergency services, go to your [facility] or crisis center, or call a suicide crisis helpline. Summary ??? Suicide is when you take your own life. ??? Promise yourself that you will not do anything extreme when you have suicidal feelings. ??? Let family, friends, teachers, or counselors know how you are feeling. ??? Get help right away if you start making plans for how to commit suicide. This information is not intended to replace advice given to you by your health care provider. Make sure you discuss any questions you have with your health care provider. Document Revised: 05/16/2021 Document Reviewed: 05/18/2021 Elsevier Patient Education ?? 2021 [employer]. Physician Emergency department Note * SATISH Cantu: PERFORM Event Display: ED Note Physician Authored Date: [id number] XIOMARA GUADALUPE :1995 Age:27 years Sex:Female Visit Date:10/29/2022 Primary Care Physician: RICARDO MINOR Basic Information Time Seen: SATISH Cantu / 10/29/2022 12:18 Chief Complaint pt reports suicidal ideations, hanging herself in the [place] as a plan, pt states unable to functionor take care of herself, no sleep in 4 days, last cocaine use this morning History Of Present Illness: Patient is a 19-year-old female presents emergency department having had a longstanding history of substance abuse and noting that it is worsened over the last several weeks.?? She has??been utilizing crack cocaine??on a daily basis in the smoked form, yesterday she attempted some heroin??but states that she did not do a significant amount of this. ??She takes her Suboxone as prescribed??and she is??not a daily drinker . Patient has also the added complaint of anxiety??associated with her drug use. Patient??unfortunately is also experiencing some vaginal discharge and dysuria. ??She is fearful for STD as she has had multiple unprotected sexual partners in the last??several days. Patient??has a significant??SI history and??notes that approximate 2 years ago her fianc?? at that time hung himself??in the [place], she has walked out to this point??[facility] several times in thelast few days thinking that she would do the same.?? She presents for evaluation. Review of Systems: See HPI Physical Exam Vitals & Measurements T:??35.7?C ??(Temporal Artery)?? HR:??94??(Peripheral)?? RR:??20?? BP:??147/88?? SpO2:??97%?? HT:??170.180??cm?? WT:??108.86??kg?? BMI:??38.000?? Pain Score:??7?? O2 Therapy:??Room air?? Patient alert oriented age-appropriate well-nourished nontoxic Normocephalic atraumatic Neck supple nontender EOM intact, PERRLA, sclera nonicteric Clear to auscultation bilaterally Regular rate and rhythm no murmurs Abdominal exam reveals normal bowel sounds, negative rebound tenderness, negative psoas sign Normal gait and station, normal strength all extremities Neuro exam intact without focal deficit Appropriate mood and affect Medical Decision Making: While here in the emergency department patient is??evaluated several times requires no interventions. ??She is??mildly agitated but states that she has not wanting any medications.?? She is able to eat while here in the emergency department and??has no adverse effects Patient??is evaluated by [facility] and ultimately is determined to be a voluntary admission for psychiatric evaluation. I spoke with the hospitalist who agreed with her admission Patient ultimately was found to have Gardnerella vaginosis and is started on metronidazole Patient is transferred to the medical surgical unit for awaiting mental health placement. Procedure No Qualifying Data Assessment/Plan 1.??Suicidal ideation??R45.851 Admission 2.??Opioid abuse??F11.10 3.??Substance abuse??F19.10 4.??Vaginosis??N76.0 Medication Reconciliation Unchanged buprenorphine-naloxone (Suboxone 2 mg-0.5 mg sublingual film)may use 1-3 strips under tongue daily. ?? levonorgestrel (Mirena) ?? venlafaxine (Effexor XR 75 mg oral capsule, extended release)1 Capsules Oral (given by mouth) everyday. Problem List/Past Medical History Ongoing History of TMJ disorder Migraines Historical Medication Administration Given metroNIDAZOLE, 500 mg, Oral Allergies Latex??(Rash) Social History Electronic Cigarette/Vaping Electronic Cigarette Use: Never. Tobacco Current some day tobacco user Tobacco Use:. Family History Alive and well: Sister, Brother, Daughter and Son. Heart disease: Grandfather (P). Lab Results CBC and Differential?? LATEST RESULTS?? WBC?? 10/29/22 12:42?? 7.4?? RBC?? 10/29/22 12:42?? 4.64?? Hgb?? 10/29/22 12:42?? 14.1?? Hct?? 10/29/22 12:42?? 42.0?? MCV?? 10/29/22 12:42?? 90.5?? MCH?? 10/29/22 12:42?? 30.4?? MCHC?? 10/29/22 12:42?? 33.6?? RDW-CV?? 10/29/22 12:42?? 12.5?? Platelets?? 10/29/22 12:42?? 294?? MPV?? 10/29/22 12:42?? 9.7?? Neutro Auto?? 10/29/22 12:42?? 59.4?? Lymph Auto?? 10/29/22 12:42?? 28.6?? Sampson Auto?? 10/29/22 12:42?? 9.5 ??High?? Eos, Auto?? 10/29/22 12:42?? 1.50?? Basophil Auto?? 10/29/22 12:42?? 0.7?? Imm Gran Auto?? 10/29/22 12:42?? 0.3?? Neutro Absolute?? 10/29/22 12:42?? 4.4?? Lymph Absolute?? 10/29/22 12:42?? 2.1?? Sampson Absolute?? 10/29/22 12:42?? 0.7 ??High?? Eos Absolute?? 10/29/22 12:42?? 0.1?? Baso Absolute?? 10/29/22 12:42?? 0.0?? Imm Gran Absolute?? 10/29/22 12:42?? 0.02? Routine Chemistry?? LATEST RESULTS?? Sodium Level?? 10/29/22 12:42?? 134?? Potassium Level?? 10/29/22 12:42?? 3.5?? Chloride Level?? 10/29/22 12:42?? 99?? CO2?? 10/29/22 12:42?? 25?? Alk Phos?? 10/29/22 12:42?? 99?? AST?? 10/29/22 12:42?? 54 ??High?? ALT?? 10/29/22 12:42?? 64 ??High?? BUN?? 10/29/22 12:42?? 12?? Glucose Level?? 02/14/23 12:42?? 107 ??High?? Creatinine Level?? 10/29/22 12:42?? 0.85?? BUN/Creat Ratio?? 10/29/22 12:42?? 14.1?? Calcium Level?? 10/29/22 12:42?? 9.3?? Protein Total?? 10/29/22 12:42?? 7.8?? Albumin Level?? 10/29/22 12:42?? 4.2?? Globulin?? 10/29/22 12:42?? 3.6?? A/G Ratio?? 10/29/22 12:42?? 1.2?? Bilirubin Total?? 10/29/22 12:42?? 1.1?? Anion Gap?? 10/29/22 12:42?? 10.0?? Osmolality?? 10/29/22 12:42?? 268 ??Low?? eGFR CKD-EPI?? 10/29/22 12:42?? 96? Testing?? LATEST RESULTS?? U hCG Ql?? 10/29/22 13:54?? Negative? Thyroid Studies?? LATEST RESULTS?? TSH?? 10/29/22 12:42?? 1.29? Serum Toxicology?? LATEST RESULTS?? Ethanol Level?? 10/29/22 12:42?? <0.00?? Instr Ethanol Lvl?? 10/29/22 12:42?? <5? Urine Toxicology?? LATEST RESULTS?? U Amph Scrn?? 10/29/22 13:54?? Negative?? U Verónica Scrn?? 10/29/22 13:54?? Negative?? U Benzodia Scrn?? 10/29/22 13:54?? Negative?? U Buprenorph Scr?? 10/29/22 13:54?? Positive Abnormal?? U Cocaine Scrn?? 10/29/22 13:54?? Positive Abnormal?? U TCA Scr?? 10/29/22 13:54?? Negative?? U THC Scr?? 10/29/22 13:54?? Negative?? U mAMP Scr?? 10/29/22 13:54?? Negative?? U Methadone Scr?? 10/29/22 13:54?? Negative?? U Opiate Scrn?? 10/29/22 13:54?? Negative?? U Oxy Scrn?? 10/29/22 13:54?? Negative?? U PCP Scrn?? 10/29/22 13:54?? Negative?? U PPX Scr?? 10/29/22 13:54?? Negative? Infectious Disease?? LATEST RESULTS?? Chlamydia trachomatis DNA -GeneXpert?? 10/29/22 12:46?? Not Detected?? Neisseria gonorrhoeae DNA -GeneXpert?? 10/29/22 12:46?? Not Detected?? SARS-CoV-2 (COVID-19) PCR (GeneXpert)?? 10/29/22 13:54?? Negative?? Employed in healthcare??? 10/29/22 13:54?? No?? Symptomatic as defined by CDC??? 10/29/22 13:54?? No?? Hospitalized due to COVID-19??? 10/29/22 13:54?? No?? In ICU??? 10/29/22 13:54?? No?? Group care resident??? 10/29/22 13:54?? No?? status??? 10/29/22 13:54?? Unknown? Bacteriology?? LATEST RESULTS?? Gardnerella-BD Affirm?? 10/29/22 12:46?? Positive Abnormal?? Trichomonas-BD Affirm?? 10/29/22 12:46?? Negative?? Merry Species -BD Affirm?? 10/29/22 12:46?? Negative? Electronically Signed on 10/29/22 05:54 PM SATISH Cantu Progress note * Jasbir Méndez MD: PERFORM Event Display: Progress Note - Physician Authored Date: [id number] XIOMARA GUADALUPE Joe :1995 Age:27 years Sex:Female Visit Date:10/29/2022 Primary Care Physician: RICARDO MINOR The patient remains voluntary. ?? There is no bed availability but it is still early in the day. ?? There have been no incidents. Patient remains on her baseline medications. ?? She has the addition of Flagyl for bacterial vaginosis. ?? [facility] will see the patient later today. Electronically Signed on 10/31/22 08:06 AM Jasbir Méndez MD * Jasbir Méndez MD: PERFORM Event Display: Progress Note - Physician Authored Date: [id number] COLLINSCEDSA Diaz :1995 Age:27 years Sex:Female Visit Date:10/29/2022 Primary Care Physician: RICARDO MINOR This note is for date of service October 30, 2022. ?? Patient remains voluntary. She was seen by [facility] today. ?? Despite being early in the week, there is still no bed movement. ?? She will continue her Flagyl for vaginosis. ?? There have been no incidents. ?? There have been no signs reported to me of detox. Electronically Signed on 10/31/22 08:04 AM Jasbir Méndez MD History and physical note * Jasbir Méndez MD: PERFORM Event Display: History and Physical Authored Date: [id number] GUADALUPEXIOMARA Joe :1995 Age:27 years Sex:Female Visit Date:10/29/2022 Primary Care Physician: RICARDO MINOR Chief Complaint pt reports suicidal ideations, hanging herself in the [place] as a plan, pt states unable to functionor take care of herself, no sleep in 4 days, last cocaine use this morning History of Present Illness This is a 27-year-old female that does suffer from depression. ??She is on venlafaxine. ?? She suffers from??fibromyalgia but is not on any current medications. ?? She has a history of??opiate abuse and is on Suboxone. She does have a history of polysubstance abuse with cocaine in her urine. ?? Patient had a fianc?? hanging himself from a tree??5 years ago.?? The patient is started to have suicidal thoughts or self but has been walking towards that area??with consideration of such. ??Fortunately??she voluntarily comes to the emergency room for evaluation. ?? In the emergency room she is cleared by the emergency room provider. ?? [facility] consulted on the patient is determined the patient will be a voluntary admission.?? As no beds are available, patient will stay on the medical surgical floor under direct observation for convenience per hospital policy. Review of Systems Constitutional: Depression, suicidal ideation ENT:??No ear pain, nasal congestion, sore throat Respiratory:??No shortness of breath, cough Cardiovascular:??No Chest pain, palpitations, syncope Gastrointestinal:??No nausea, vomiting, diarrhea Genitourinary: Vaginal discharge with odor Musculoskeletal:??No back pain, neck pain, joint pain, muscle pain, decreased range of motion Neurologic:??Alert & oriented X 4 Physical Exam Vitals & Measurements T:??35.7?C ??(Temporal Artery)?? HR:??110??(Peripheral)?? RR:??22?? BP:??111/73?? SpO2:??97%?? HT:??170.180??cm?? WT:??108.86??kg?? BMI:??38.000?? Pain Score:??7?? O2 Therapy:??Room air?? General: Pleasant,??no depressed affect.?? HENT: No signs of trauma.?? Lungs: [Clear to auscultation and percussion, non-labored respiration].?? Heart: [Normal rate, regular rhythm, no murmur, gallop or edema]. Abdomen: [Soft, non-tender, non-distended, normal bowel sounds, no masses].?? Musculoskeletal: [Normal range of motion and strength, no tenderness or swelling]. Skin: No signs of IVDU or self cutting. Neurologic: No focal signs, cranial nerves II to XII intact, nichole coordination from thumb to finger. Assessment/Plan 1.??Suicidal ideation??R45.851 Direct observation, transfer to psychiatric [facility] when bed becomes available. 2.??Opioid abuse??F11.10 Verify maintain Suboxone. 3.??Substance abuse??F19.10 The patient is showing no signs of detox but will be alert for such. 4.??Vaginosis??N76.0 Flagyl initiated. ?? Time??spent on patient care today is 40 minutes. Orders: Suboxone 4 mg-1 mg sublingual film, 4 mg 1 strip, SL, Film, every morning, First Dose: 10/30/22 9:00:00 EST, Routine LORazepam, 1 mg = 1 tab, Oral, Tab, TID for 30 days, PRN anxiety, First Dose: 10/29/22 17:04:00 EST, Stop Date: 11/28/22 17:03:00 EDT, Physician Stop, Routine Effexor XR, 75 mg = 2 cap, Oral, Cap-ER, Daily, First Dose: 10/30/22 9:00:00 EST, Routine Consult to Mental Health, Routine, suicide ideation Diet Order, 10/29/22 17:02:00 EST, Regular, Safety Precaution Patient Condition, 10/29/22 17:02:00 EST, Condition Good/ Stable PSO Place in Observation, Observation, Observation, 10/29/22 16:59:00 EST, 10/29/22 16:59:00 EST, 10/29/22 16:59:00 EST, 1 midnight or less Resuscitation Status, 10/29/22 17:02:00 EST, Full Code Suicide Precautions, 10/29/22 17:04:00 EST, Constant Order Up ad Celestina, 10/29/22 17:02:00 EST, Constant Order, at nurse's discretion Vital Signs, 10/29/22 17:02:00 EST, Daily Problem List/Past Medical History Ongoing History of TMJ disorder Migraines Historical Medications Inpatient Effexor XR, 75 mg= 2 cap, Oral, Daily LORazepam, 1 mg= 1 tab, Oral, TID, PRN Suboxone 4 mg-1 mg sublingual film, 4 mg= 1 strip, SL, every morning Home Effexor XR 75 mg oral capsule, extended release, 75 mg= 1 cap, Oral, Daily Mirena Suboxone 2 mg-0.5 mg sublingual film, See Instructions Allergies Latex??(Rash) Social History Electronic Cigarette/Vaping Electronic Cigarette Use: Never. Tobacco Current some day tobacco user Tobacco Use:. Family History Alive and well: Sister, Brother, Daughter and Son. Heart disease: Grandfather (P). Electronically Signed on 10/29/22 05:11 PM Jasbir Méndez MD Discharge summary * Jasbir Méndez MD: PERFORM Event Display: Discharge Summary Authored Date: [id number] XIOMARA GUADALUPE Joe :1995 Age:27 years Sex:Female Visit Date:10/29/2022 Primary Care Physician: RICARDO MINOR [facility] Course This is?? a 27-year-old female with a history of opioid dependence on Suboxone. She has a history of substance abuse. ?? She also has a history??of depression??on Effexor. ?? The patient had a fianc?? committed suicide from a tree in her yard. Over the recent days she has been walking near the tree having suicidal thoughts.?? Thus she came in voluntarily to the emergency room. ?? In the emergency room she is cleared by the emergency room provider. ??She did have bacterial vaginosis and was started on??Flagyl for which she will complete??for??4 more days for total of a 7-day course. ?? [facility] met with the patient it was determined that she would be a voluntary admission. ??However no beds were available so the patient stayed on the medical surgical floor??under direct observation for convenience. ?? Her stay??has been uneventful. ?? A bed??has now??become available at [facility]. ??She will be transferred there to get thepsychiatric help that she needs. Physical Exam Vitals & Measurements T:??36.4?C ??(Temporal Artery)?? TMIN:??36.0?C ??(Temporal Artery)?? TMAX:??36.5?C ??(Temporal Artery)?? HR:??69??(Monitored)?? RR:??20?? BP:??126/56?? SpO2:??97%?? Pain Score:??0?? O2 Therapy:??Room air?? Medications Inpatient Effexor XR, 37.5 mg= 1 cap, Oral, every morning Effexor XR, 150 mg= 1 cap, Oral, every morning ibuprofen, 400 mg= 2 tab, Oral, every 6 hr ([facility]), PRN LORazepam, 1 mg= 1 tab, Oral, TID, PRN metroNIDAZOLE, 500 mg= 1 tab, Oral, BID nicotine 21 mg/24 hr Transderm ER Film, 1 patches, TD, every 24 hr Nicotine Patch Removal, 1 EA, TD, every 24 hr Suboxone 4 mg-1 mg sublingual film, 2 mg= 0.5 strip, SL, TID, PRN Home Advil 200 mg oral tablet, 400 mg= [...] 2 mg-0.5 mg sublingual film, 1 film, SL, TID, PRN Tylenol Extra Strength 500 mg oral tablet, 1000 mg= 2 tab, Oral, every 6 hr, PRN Social History Electronic Cigarette/Vaping Electronic Cigarette Use: Never. Tobacco Current some day tobacco user Tobacco Use:. Discharge Plan 1.??Suicidal ideation??R45.851 Maintain Effexor, transfer to psychiatric [facility]. 2.??Opioid abuse??F11.10 Maintain Suboxone. 3.??Substance abuse??F19.10 No signs of withdrawal. 4.??Vaginosis??N76.0 8 more doses, 4 more days, of Flagyl. Orders: metroNIDAZOLE 500 mg oral tablet, 500 mg = 1 tab, Oral, BID, # 8 tab, 0 Refill(s) Discharge Patient, 11/01/22 11:44:00 EST, Psychiatric Unit Urinalysis Microscopic, Urine, Routine Collect, Collected, 11/01/22 11:02:00 EST, Once, Nurse collect Urinalysis with Microscopic if Indicated, Urine, Routine Collect, 11/01/22 8:34:00 EST, Once, Nursecollect, Print Label Vital Signs, 11/01/22 10:02:00 EST, BID All Diagnoses This Visit Suicidal ideation Opioid abuse Substance abuse Vaginosis Patient Discharge Condition Stable. Discharge Disposition Transferred to [facility]. ?? Time spent on patient care today is 30 minutes. Patient Education Suicidal Feelings: How to Help Yourself Medication Reconciliation New Prescription metroNIDAZOLE (metroNIDAZOLE 500 mg oral tablet)1 tab Oral (given by mouth) 2 times a day for 4 Days. ?? Changed buprenorphine-naloxone (Suboxone 2 mg-0.5 mg sublingual film)1 film Sublingual (dissolve under the tongue) 3 times a day as needed withdrawal symptoms. typically takes at least every morning. ?? venlafaxine (Effexor XR 150 mg oral capsule, extended release)1 Capsules Oral (given by mouth) every morning. in addition to 37.5mg cap = 187.5 mg. ?? venlafaxine (Effexor XR 37.5 mg oral capsule, extended release)1 Capsules Oral (given by mouth) every morning. in addition to 150mg cap = 187.5 mg. ?? Unchanged acetaminophen (Tylenol Extra Strength 500 mg oral tablet)2 tab Oral (given by mouth) every 6 hours as needed as needed for pain. ?? ibuprofen (Advil 200 mg oral tablet)2 tab Oral (given by mouth) every 4 hours as needed as needed for pain. ?? levonorgestrel (Mirena) ?? multivitamin (multivitamin adult, oral tablet)1 tab Oral (given by mouth) every day. 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
--- OUTSIDE RECORDS SUMMARY | 2024-09-20 16:37 | XMS_ITS | Encounter Summary ---
Author Organization [facility] Address [address] [place] [address] Care Team Providers Care Salesperson Hosiery Name Role Phone Unknown, Provider Primary Care Provider Unava ilable Encounter Details Date Type Department Care Team (Late st Contact Info) Description 04/27/2022 Lab Requisition [facility] Pathology & Laboratory Medicine - [facility] [address] [place] [address] Outr Resulting Lab, Provider Social History Tobacco [...] Procedure Name Priority Date/Time Associated Diagnosis Comments HIV 1/2 ANTIGEN AND ANTIBODY, 4TH GENERATION Routine 04/26/2022 13:47 EDT documented in this encounter Results * HIV 1/2 ANTIGEN AND ANTIBODY, 4TH GENERATION (04/26/2022 13:47 EDT) HIV 1 and 2 Antibody/p24 Antigen, 4th Generation Negative Negative 04/29/2022 12:31 EDT [facility] Comment:If acute HIV-1 infec tion is suspected in a high risk patient, submit plasma specimen for HIV-1 RNA quantitation test. Blood VENOUS BLOOD / Unknown 04/26/2022 13:47 EDT 04/28/2022 16:44 EDT Narrative [facility] - 04/29/2022 12:31 EDT Fourth Generation assay performed on the Siemens Centaur XPT. us Provider Outr Resulting Lab IMMUNOLOGY AND SEROL OGY ORDERABLES Final Result [facility] [address] [place] [address] documented in this encounter Visit Diagnoses Not on filedocumented in this encounter Care Teams Salesperson Hosiery Relationship Specialty Start Date End Date Unknown, Provider, PCP - General 05/07/19 documented as of this encounter
[2024-09-20 19:56] LABS: ALT 24 U/L (14-59); AST 18 U/L (15-37); Alkaline Phosphatase 80 U/L (46-116); BUN 17 mg/dL (7-18); CREATININE 0.9 mg/dL (0.55-1.02); Calcium 9.6 mg/dL (8.5-10.1); Calculated LDL 122 mg/dL (<100); Chloride 104 mmol/L (98-107); Cholesterol 207 mg/dL (<200); Glucose 96 mg/dL (74-106); HDL Cholesterol 39 mg/dL (40-60); Potassium 4.5 mmol/L (3.5-5.1); Sodium 141 mmol/L (136-145); TSH (W/Ref FT4) 1.43 uIU/mL (0.36-3.74); Total Protein 7.4 g/dL (6.4-8.2); Triglyceride 231 mg/dL (<150); Vitamin D 25 Total 16.9 ng/mL (30-100)
== END 2024-09-20 16:28 | disposition home or self-care (01) ==
LOC: NCHCN 16:27
PROVIDERS: PCP Nurse Practitioner Family; Visit Provider Nurse Practitioner Family
DX: Z00.00 Encounter for general adult medical examination without abnormal findings (principal)
CPT/HCPCS: 80053; 80061; 82306; 84443

== ENCOUNTER 2024-12-27 13:10 | Outpatient (REF) | payer MEDICAID, SELFPAY ==
[2024-12-27 16:20] LABS: Vitamin D 25 Total 26 ng/mL (30-100)
== END 2024-12-27 13:11 | disposition home or self-care (01) ==
LOC: NCHCN 13:10
PROVIDERS: PCP Nurse Practitioner Family; Visit Provider Nurse Practitioner Family
DX: E55.9 Vitamin D deficiency, unspecified (principal)
CPT/HCPCS: 82306

== ENCOUNTER 2025-01-17 12:59 | Outpatient (REF) | payer MEDICAID, SELFPAY ==
[2025-01-17 16:16] LABS: BUN 14 mg/dL (7-18); Estimated GFR 77.72 (mL/min/1.73m2)
== END 2025-01-17 13:00 | disposition home or self-care (01) ==
LOC: NCHCN 12:59
PROVIDERS: PCP Nurse Practitioner Family; Visit Provider Registered Nurse Psychiatric/Mental Health
DX: F31.60 Bipolar disorder, current episode mixed, unspecified (principal)
CPT/HCPCS: 84520; 80178; 82565

== ENCOUNTER 2025-01-31 14:51 | Outpatient (REF) | payer MEDICAID, SELFPAY ==
[2025-01-31 17:25] LABS: Lithium 0.5 mmol/L (0.6-1.2)
== END 2025-01-31 14:52 | disposition home or self-care (01) ==
LOC: NCHCN 14:51
PROVIDERS: PCP Nurse Practitioner Family; Visit Provider Nurse Practitioner Family
DX: F31.60 Bipolar disorder, current episode mixed, unspecified (principal)
CPT/HCPCS: 80178

== ENCOUNTER 2025-02-28 13:46 | Outpatient (REF) | payer MEDICAID, SELFPAY ==
[2025-02-28 16:01] LABS: Lithium 0.7 mmol/L (0.6-1.2)
[2025-02-28 16:14] LABS: ALT 41 U/L (14-59); AST 16 U/L (15-37); Albumin 3.8 g/dL (3.4-5.0); Alkaline Phosphatase 92 U/L (46-116); Anion Gap 6.5 mmol/L (3-11); BUN 14 mg/dL (7-18); Bilirubin, Total 0.3 mg/dL (0.2-1.0); CO2 27.5 mmol/L (21.0-32.0); CREATININE 1.3 mg/dL (0.55-1.02); Calcium 9.2 mg/dL (8.5-10.1); Chloride 106 mmol/L (98-107); Estimated GFR 56.73 (mL/min/1.73m2); Glucose 81 mg/dL (74-106); Potassium 4.6 mmol/L (3.5-5.1); Sodium 140 mmol/L (136-145); Total Protein 6.9 g/dL (6.4-8.2)
== END 2025-02-28 13:47 | disposition home or self-care (01) ==
LOC: NCHCN 13:46
PROVIDERS: PCP Nurse Practitioner Family; Visit Provider Nurse Practitioner Family
DX: Z13.29 Encounter for screening for other suspected endocrine disorder (principal); F31.60 Bipolar disorder, current episode mixed, unspecified
CPT/HCPCS: 80053; 80178; 84443

== ENCOUNTER 2025-04-08 12:01 | Outpatient (REF) | payer MEDICAID, SELFPAY ==
[2025-04-08 15:52] LABS: Lithium 0.3 mmol/L (0.6-1.2)
== END 2025-04-08 12:02 | disposition home or self-care (01) ==
LOC: NCHCN 12:01
PROVIDERS: PCP Nurse Practitioner Family; Visit Provider Nurse Practitioner Family
DX: F31.77 Bipolar disorder, in partial remission, most recent episode mixed (principal)
CPT/HCPCS: 80178

== ENCOUNTER 2025-05-22 08:28 | Emergency (ER) | payer MEDICAID, SELFPAY ==
[2025-05-22 08:34] VITALS: BP 137/79; PULSE 65; RESP 16; TEMP 37.4; O2SAT 98
--- NOTE | 2025-05-22 09:00 | DI.RAD_ITS ---
Exam(s) XR PELVIS AP EXAM: XR PELVIS AP CLINICAL HISTORY: fall, pain. TECHNIQUE: 2D digital imaging was performed. Single AP view. COMPARISON: No exams were available for comparison FINDINGS: BONES: No acute fracture is present. No bony destructive lesion is seen. JOINTS: No dislocation present. No joint space narrowing is present. SOFT TISSUE: Normal. IUD. IMPRESSION: No acute abnormality. The preliminary [facility] report was reviewed. DATA REPOSITORY: RADIATION DOSE DELIVERED:
[2025-05-22] MEDS: Lidocaine 5% Patch 2 PATCH TP (09:18)
--- NOTE | 2025-05-22 09:54 | DI.[facility]_ITS ---
PROCEDURE INFORMATION: Exam: XR Pelvis Exam date and time: 05/22/2025 9:39 AM Age: 30 years old Clinical indication: Other: Fall, pain TECHNIQUE: Imaging protocol: Radiologic exam of the pelvis. Views: 1 or 2 view. COMPARISON: CT ABDOMEN PELVIS W 09/30/2022 7:49 PM FINDINGS: Bones/joints: The pubic symphysis demonstrates mild degenerative changes. Soft tissues: Unremarkable. Organs: Intrauterine device is seen in the uterus. IMPRESSION: No acute fracture or dislocation. Dictated and Authenticated by: Daniel Howard MD. Orderin Florence Black MD
--- NOTE | 2025-05-22 10:35 | W.ED.GENAD ---
Discharge Plan Disposition Patient Disposition: Home Condition: Stable Discharge Details Clinical Impression: Contusion Primary Care Provider: María Gibbs ED Provider: Sofia Henriquez Home Meds and New Rx's Prescriptions: New cyclobenzaprine 10 mg tablet 10 mg PO TID PRNQty: 9 0RF Continued Mirena 20 mcg/24 hours (5 yrs) 52 mg intrauterine device 1 device IY ONCE Rx Instructions: as a single dose multivit with min-folic acid [Adult Multivitamin Gummies] 200 mcg tablet,chewable 1 tab PO DAILY acetylcysteine [NAC] 600 mg capsule 1,200 mg PO BID PRN Mirena 20 mcg/24 hours (7 yrs) 52 mg intrauterine device 1 device intrauterine ONCE Rx Instructions: as a single dose acetaminophen 500 mg capsule 1,000 mg PO Q8H PRN PRNQty: 30 0RF ibuprofen 600 mg tablet 600 mg PO TID Qty: 30 0RF prazosin 1 mg capsule 1 mg PO QHS Patient Comments: TAKE ONE CAPSULE BY MOUTH EVERY DAY AT BEDTIME FOR DISRUPTED SLEEP, NIGHTMARES lithium carbonate 300 mg tablet extended release 300 mg PO ONCE Patient Comments: TAKE ONE TABLET BY MOUTH AT BEDTIME valacyclovir 500 mg tablet 500 mg PO DAILY Patient Comments: TAKE ONE TABLET BY MOUTH EVERY DAY topiramate 50 mg tablet 50 mg PO BID Patient Comments: TAKE ONE TABLET BY MOUTH TWICE A DAY FOR MOOD/APPETITE. IF DAYTIME FATIGUE, TAKE TWO TABLETS BY MOUTH EVERY DAY AT BEDTIME Discharge Instructions Instructions: Minor Contusion ED Additional Instructions: motrin and tylenol as needed for pain flexeril at night as needed for discomfort ice rest return with worsening pain or should new concerns arise With persistent symptoms greater than 1 week recommend recheck with PCP Stand Alone Forms: Work Release HPI General Date/Time Provider Initiated Documentation: 05/22/25 08:33. HPI Narrative: This 30-year-old female presents with report of fall downstairs wet outside stairs yesterday. She landed on her buttocks. She denies any head injury or back pain. Denies strength or sensation changes to her extremities. Wet. Related Data Home Medications ?Medication ?Instructions ?Recorded ?Confirmed levonorgestrel (Mirena) 1 device intrauterine ONCE 05/10/20 05/22/25 acetaminophen 500 mg capsule 1,000 mg (2 x 500 mg) PO Q8H PRN 10/31/21 05/22/25 PRN #30 caps ibuprofen 600 mg tablet 600 mg PO TID #30 tabs 10/31/21 05/22/25 acetylcysteine 600 mg capsule (NAC) 1,200 mg PO BID PRN 06/26/22 05/22/25 levonorgestrel (Mirena) 1 device intrauterine ONCE 06/26/22 05/22/25 multivitamin with minerals-folic 1 tab PO DAILY 06/26/22 05/22/25 acid 200 mcg chewable tablet (Adult Multivitamin Gummies) cyclobenzaprine 10 mg tablet 10 mg PO TID PRN #9 tabs 05/22/25 lithium carbonate 300 mg 300 mg PO ONCE 05/22/25 05/22/25 tablet,extended release prazosin 1 mg capsule 1 mg PO QHS 05/22/25 05/22/25 topiramate 50 mg tablet 50 mg PO BID 05/22/25 05/22/25 valacyclovir 500 mg tablet 500 mg PO DAILY 05/22/25 05/22/25 Previous Rx's ?Medication ?Instructions ?Recorded acetaminophen 500 mg capsule 1,000 mg (2 x 500 mg) PO Q8H PRN 10/31/21 PRN #30 caps ibuprofen 600 mg tablet 600 mg PO TID #30 tabs 10/31/21 cyclobenzaprine 10 mg tablet 10 mg PO TID PRN #9 tabs 05/22/25 Allergies Allergy/AdvReac Type Severity Reaction Status Date / Time Latex, Natural Rubber AdvReac Mild Skin Rash Verified 05/22/25 09:05 General Stated Complaint: Nk/Back Pain MITCH: 4 Exam Narrative Exam Narrative: 30-year-old female presenting with tenderness to glutes with palpation no lumbar spine tenderness or thoracic spine tenderness no cervical spine tenderness alert and oriented no abdominal tenderness neurovascularly intact to bilateral lower extremities without visible sign of trauma Course Vital Signs Vital signs: Vital Signs Temperature 37.4 C 05/22/25 08:34 Pulse 65 05/22/25 08:34 Respiratory Rate 16 05/22/25 08:34 Blood Pressure 137/79 05/22/25 08:34 Pulse Oximetry 98 05/22/25 08:34 Temperature 37.4 C 05/22/25 08:34 Temperature Source Oral 05/22/25 08:34 Pulse 65 05/22/25 08:34 Respiratory Rate 16 05/22/25 08:34 Blood Pressure 137/79 05/22/25 08:34 Pulse Oximetry 98 05/22/25 08:34 Oxygen Delivery Method Room Air 05/22/25 08:34 Oxygen Flow Rate 0 05/22/25 08:34 Pain Level 4 05/22/25 08:34 Medical Decision Making Results: Patient has an x-ray of her pelvis that per radiology interpretation on my review does not show evidence of acute abnormality Assessment and plan: X-ray was ordered as patient has tenderness to her buttocks she has no lumbar spine tenderness or any spinal tenderness on assessment she is fully alert and oriented and she is ambulatory with steady gait. I did place Lidoderm patches over the areas of tenderness, there is no visible sign of trauma on my assessment. She did not have much improvement with the Lidoderm so will encourage Motrin Tylenol will write for several doses of Flexeril which she may can take at night as needed. She was also given a work note as she sits for work and this induces worsening pain per patient. At this time I think patient stable for discharge home she is encouraged to be rechecked in 1 week should she have worsening or persistent symptoms PFSH All Active Problems (Updated 05/22/25 @ 10:49 by SATISH Stanford) Contusion (Acute) Dependency on pain medication (Acute) Low back pain (Acute) Vitamin D deficiency (Acute) Bimalleolar fracture of left ankle (Acute 10/27/21) S/P ORIF: 10/31/2021 Bilateral carpal tunnel syndrome (Acute) Medical History (Updated 05/22/25 @ 10:49 by SATISH Stanford) Anemia Claustrophobia CARLOS (obstructive sleep apnea) TMJ (temporomandibular joint disorder) Fibromyalgia Numbness and tingling Anxiety with depression Poor circulation Gout Obesity (BMI 35.0-39.9 without comorbidity) Depression Anxiety Carpal tunnel syndrome Surgical History (Updated 12/10/21 @ 13:58 by SATISH Cruz) History of cholecystectomy Family History Father High blood cholesterol Mother Arthritis Osteoarthritis Paternal Grandfather Arthritis Osteoarthritis High blood cholesterol Hypertension Diabetes Abnormally prolonged clotting time Maternal Grandmother Arthritis Osteoarthritis High blood cholesterol Hypertension Rheumatoid arthritis Other Neoplasm Social History (Updated 06/26/22 @ 10:12 by Xiao Darling RN, RN) Smoking/Tobacco Use Status: Current every day Tobacco Type: e-cigarettes Smokeless tobacco user: other Quit status: considering quitting Smoking risk assessment performed?: Yes Alcohol Intake: never Drug use: Never Substance use type: does not use Household members: significant other and children Housing: apartment Number of Children: 2 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
[2025-05-22 11:02] VITALS: BP 108/51; PULSE 78; RESP 16; TEMP 37.1; O2SAT 98
== END 2025-05-22 11:05 | disposition home or self-care (01) ==
PROVIDERS: Emergency Provider Physician Assistant; PCP Nurse Practitioner Family
DX: S30.0XXA Contusion of lower back and pelvis, initial encounter (principal); W10.8XXA Fall (on) (from) other stairs and steps, initial encounter
CPT/HCPCS: 99283 ×2; 72170

== ENCOUNTER 2025-07-22 14:32 | Outpatient (REF) | payer MEDICAID, SELFPAY ==
[2025-07-22 19:02] LABS: Lithium < 0.2 mmol/L (0.6-1.2)
[2025-07-22 19:10] LABS: ALT 31 U/L (14-59); AST 13 U/L (15-37); Albumin 3.8 g/dL (3.4-5.0); Alkaline Phosphatase 88 U/L (46-116); Anion Gap 9.4 mmol/L (3-11); BUN 20 mg/dL (7-18); Bilirubin, Total 0.3 mg/dL (0.2-1.0); CO2 25.6 mmol/L (21.0-32.0); Calcium 8.7 mg/dL (8.5-10.1); Chloride 104 mmol/L (98-107); Glucose 91 mg/dL (74-106); Potassium 4.1 mmol/L (3.5-5.1); Sodium 139 mmol/L (136-145); Total Protein 7.1 g/dL (6.4-8.2)
== END 2025-07-22 14:33 | disposition home or self-care (01) ==
LOC: NCHCN 14:32
PROVIDERS: PCP Nurse Practitioner Family; Visit Provider Nurse Practitioner Family
DX: F31.77 Bipolar disorder, in partial remission, most recent episode mixed (principal)
CPT/HCPCS: 80053; 80178